=== PATIENT | male | born 1950 | race Caucasian/White ===

== ENCOUNTER 2016-07-04 22:12 | Emergency (ER) | payer OTHER ==
[2016-07-04] MEDS ORDERED: chlorproMAZINE 25 MG TABLET PO STA (23:08)
[2016-07-05] MEDS ORDERED: CYCLOBENZAPRINE 10 MG TABLET PO STA (00:15)
[2016-07-05] MEDS ORDERED: CYCLOBENZAPRINE 10 MG TABLET PO ONE (00:27)
== END 2016-07-05 00:33 | disposition home or self-care (01) ==
DX: R06.6 Hiccough (principal); I10 Essential (primary) hypertension; J44.9 Chronic obstructive pulmonary disease, unspecified; Z79.82 Long term (current) use of aspirin; F17.200 Nicotine dependence, unspecified, uncomplicated
CPT/HCPCS: 99283; A9270

== ENCOUNTER 2016-09-16 11:45 | Emergency (ER) | payer OTHER ==
[2016-09-16] MEDS ORDERED: SODIUM CHLORIDE 0.9% 1,000 ML IV ONE (12:19)
[2016-09-16] MEDS ORDERED: MULTIVITAMIN TABLET PO STA (12:19)
[2016-09-16] MEDS ORDERED: LORazepam 2 MG/ML SYRINGE IVP STA (12:19)
[2016-09-16] MEDS ORDERED: THIAMINE 100 MG TABLET PO STA (12:19)
[2016-09-16] MEDS ORDERED: LORazepam 2 MG/ML SYRINGE ONE (12:31)
[2016-09-16] MEDS ORDERED: MULTIVITAMIN TABLET PO ONE (12:31)
[2016-09-16] MEDS ORDERED: THIAMINE 100 MG/1 ML 2 ML MDV ONE (12:32)
[2016-09-16] MEDS ORDERED: THIAMINE 100 MG TABLET PO ONE (12:37)
== END 2016-09-16 14:11 | disposition home or self-care (01) ==
DX: F10.239 Alcohol dependence with withdrawal, unspecified (principal); I10 Essential (primary) hypertension; J44.9 Chronic obstructive pulmonary disease, unspecified; F17.200 Nicotine dependence, unspecified, uncomplicated
CPT/HCPCS: 36415; 80053; 80320; 83690; 83735; 96374; 99283; 99284; A9270; J2060

== ENCOUNTER 2017-02-23 10:27 | Day surgery (SDC) | payer OTHER ==
[2017-02-23] MEDS ORDERED: LACTATED RINGERS 1,000 ML IV ONE ×2 (11:00→12:53)
[2017-02-23] MEDS ORDERED: MIDAZOLAM 2 MG/2 ML VIAL IVP ONE (12:10)
[2017-02-23] MEDS ORDERED: fentaNYL 100 MCG/2 ML VIAL IVP ONE (12:10)
[2017-02-23 13:00] VITALS: BP 98/86
== END 2017-02-23 10:28 | disposition home or self-care (01) ==
LOC: SDS 10:27
PROVIDERS: ATTEND Surgery
PROC: 0DBL8ZX Excision of Transverse Colon, Via Natural or Artificial Opening Endoscopic, Diagnostic (ICD-10-PCS; principal; 2017-02-23 11:45)
DX: Z12.11 Encounter for screening for malignant neoplasm of colon (principal); D12.2 Benign neoplasm of ascending colon; D12.3 Benign neoplasm of transverse colon; I10 Essential (primary) hypertension; J43.9 Emphysema, unspecified; F17.210 Nicotine dependence, cigarettes, uncomplicated
CPT/HCPCS: 45384; 88305; J7120

== ENCOUNTER 2017-08-17 10:28 | Outpatient (CLI) | payer OTHER | END 2017-08-17 10:29 | disposition home or self-care (01) | LOC: SC 10:28 | PROVIDERS: ATTEND Internal Medicine Pulmonary Disease | DX: G47.30 Sleep apnea, unspecified (principal); R06.83 Snoring | CPT/HCPCS: 99203; 99212 ==

== ENCOUNTER 2017-09-27 20:29 | Outpatient (CLI) | payer OTHER | END 2017-09-27 20:30 | disposition home or self-care (01) | LOC: SC 20:29 | PROVIDERS: ATTEND Internal Medicine Pulmonary Disease | DX: G47.33 Obstructive sleep apnea (adult) (pediatric) (principal); G47.61 Periodic limb movement disorder | CPT/HCPCS: 95810 ==

== ENCOUNTER 2017-10-19 14:52 | Outpatient (CLI) | payer MEDICARE, OTHER | END 2017-10-19 14:53 | disposition home or self-care (01) | LOC: SC 14:52 | PROVIDERS: ATTEND Internal Medicine Pulmonary Disease | DX: G47.33 Obstructive sleep apnea (adult) (pediatric) (principal) | CPT/HCPCS: 99213; G0463; 99212 ==

== ENCOUNTER 2018-02-15 10:06 | Outpatient (CLI) | payer MEDICARE, OTHER | END 2018-02-15 10:07 | disposition home or self-care (01) | LOC: SC 10:06 | PROVIDERS: ATTEND Nurse Practitioner Family | DX: G47.33 Obstructive sleep apnea (adult) (pediatric) (principal) | CPT/HCPCS: 99214; G0463; 99212 ==

== ENCOUNTER 2018-03-22 19:30 | Outpatient (CLI) | payer MEDICARE, OTHER | END 2018-03-22 23:59 | disposition home or self-care (01) | LOC: SC 19:30 | PROVIDERS: ATTEND Internal Medicine Pulmonary Disease | DX: G47.33 Obstructive sleep apnea (adult) (pediatric) (principal) | CPT/HCPCS: G0399 ×2; 95806 ==

== ENCOUNTER 2018-05-02 13:19 | Outpatient (CLI) | payer MEDICARE, OTHER | END 2018-05-02 13:20 | disposition home or self-care (01) | LOC: SC 13:19 | PROVIDERS: ATTEND Internal Medicine Pulmonary Disease | DX: G47.33 Obstructive sleep apnea (adult) (pediatric) (principal) | CPT/HCPCS: 99213; G0463; 99212 ==

== ENCOUNTER 2020-09-22 18:59 | Emergency (ER) | payer MEDICARE, OTHER ==
--- NOTE | 2020-09-22 19:38 | XRAY Report ---
PROCEDURE: Foot 3 View RT INDICATIONS: injury/pain TECHNIQUE: 3 views of the foot were acquired. COMPARISON: None. FINDINGS: Bones: No fractures or dislocations. No suspicious bony lesions. Soft tissues: No tibiotalar joint effusion. Achilles tendon appears normal. IMPRESSION: No acute finding. Reviewed by: David Rodriguez MD on 09/22/2020 7:37 PM PDT Approved by: David Rodriguez MD on 09/22/2020 7:37 PM PDT Station ID: [id number]
--- NOTE | 2020-09-22 19:48 | ED Physician Documentation ---
PD HPI LOWER EXT INJURY - Stated complaint Stated Complaint: RT FOOT INJURY - Chief complaint Chief Complaint: Ext Problem - History obtained from History obtained from: Patient - Additional information Additional information: Patient comes emergency department for chief complaint of right Foot pain after's "stepping wrong" a couple of days ago and hurting his foot. Patient states he felt a twinge in his lateral foot, and that it has been hurting since. Patient indicates the area that has been hurting is around the 5th tarsal- metatarsal joint. No other injuries. No other complaints at this time. No swelling or discoloration. Review of Systems Ten Systems: 10 systems reviewed and negative Constitutional: reports: Reviewed and negative Eyes: reports: Reviewed and negative Ears: reports: Reviewed and negative Nose: reports: Reviewed and negative Throat: reports: Reviewed and negative Cardiac: reports: Reviewed and negative Respiratory: reports: Reviewed and negative GI: reports: Reviewed and negative : reports: Reviewed and negative Skin: reports: Reviewed and negative Musculoskeletal: reports: Extremity pain, Pain with weight bearing Neurologic: reports: Reviewed and negative Psychiatric: reports: Reviewed and negative Endocrine: reports: Reviewed and negative Immunocompromised: reports: Reviewed and negative PD PAST MEDICAL HISTORY - Past Medical History Past Medical History: Yes Cardiovascular: None, Hypertension Respiratory: COPD, Emphysema Endocrine/Autoimmune: None GI: None : Frequency HEENT: None Psych: None Musculoskeletal: Osteoarthritis Derm: None - Past Surgical History Past Surgical History: No General: Other Ortho: Shoulder arthroplasty, Arthroscopic surgery - Present Medications Home Medications: Ambulatory Orders Medication Instructions Recorded Confirmed lisinopriL [Lisinopril] 25 mg ORAL DAILY 05/27/15 09/22/20 - Allergies Allergies/Adverse Reactions: Allergies Allergy/AdvReac Type Severity Reaction Status Date / Time No Known Drug Allergies Allergy Verified 09/22/20 19:03 - Social History Does the pt smoke?: Yes Smoking Status: Current every day smoker Does the pt drink ETOH?: Yes ETOH Use: Beer Does the pt have substance abuse?: Yes Substance Use and Type: Marijuana - Immunizations Immunizations are current?: Yes Immunizations: TDAP >10years/unknown - POLST Patient has POLST: No PD ED PE NORMAL - Vitals Vital signs reviewed: Yes - General General: Alert and oriented X 3, No acute distress - HEENT HEENT: Atraumatic, PERRL, EOMI, Moist mucous membranes - Neck Neck: Supple, no meningeal sign - Cardiac Cardiac: Strong equal pulses - Respiratory Respiratory: No respiratory distress - Derm Derm: Normal color, Warm and dry, No rash - Extremities Extremities: No deformity, No edema, No calf tenderness / cord, Other (Tenderness palpation without deformity or swelling over fifth tarsometatarsal joint on right. No gross deformity.) - Neuro Neuro: Alert and oriented X 3, No motor deficit, No sensory deficit - Psych Psych: Normal mood, Normal affect Results - Vitals Vitals: Vital Signs - 24 hr 09/22/20 09/22/20 19:03 19:48 Temperature 36.6 C Heart Rate 93 88 Respiratory 18 18 Rate Blood Pressure 150/90 H 162/99 H O2 Saturation 96 95 Oxygen O2 Source Room air - Rads (name of study) R foot XR Radiology: Final report received, EMP read indepedently, See rad report (neg) PD MEDICAL DECISION MAKING - ED course Complexity details: reviewed results, re-evaluated patient, considered differential, d/w patient ED course: Evaluated with x-ray of the right foot, which was found to be negative. We have discussed whether or not the patient would like crutches or any other assistive device, and the patient states he does not feel this is necessary. He mainly came in because he was concerned there was a worse injury of his foot. We have discussed the usual indications for return. Departure - Departure Disposition: 01 Home, Self Care Clinical Impression: Foot contusion Qualifiers: Encounter type: initial encounter Laterality: right Qualified Code(s): S90.31XA - Contusion of right foot, initial encounter Condition: Stable Instructions: ED Contusion Foot Comments: Your x-ray is negative for any broken bones. You may take ibuprofen as needed and bear weight as tolerated. Discharge Date/Time: 09/22/20 19:52
[2020-09-22 19:49] VITALS: BP 162/99
== END 2020-09-22 19:52 | disposition home or self-care (01) ==
LOC: ED 18:59
DX: S90.31XA Contusion of right foot, initial encounter (principal); W22.8XXA Striking against or struck by other objects, initial encounter; I10 Essential (primary) hypertension; F17.200 Nicotine dependence, unspecified, uncomplicated
CPT/HCPCS: 99282; 99283

== ENCOUNTER 2021-04-04 20:08 | Emergency (ER) | payer MEDICARE, OTHER ==
--- NOTE | 2021-04-04 21:35 | XRAY Report ---
PROCEDURE: Ribs w/PA Chest RT INDICATIONS: fall, R rib pain TECHNIQUE: 2 views of the right ribs were acquired, along with a single view chest. COMPARISON: None FINDINGS: Surgical changes and devices: None. Bones and chest wall: Mildly displaced right lateral ninth rib fracture and 10th anterolateral rib fr acture.. No suspicious bony lesions. Overlying soft tissues appear unremarkable. Lungs and pleura: No pleural effusions or pneumothorax. Lungs appear clear. Mediastinum: Mediastinal contours appear normal. Heart size is normal. IMPRESSION: Mildly displaced right ninth and 10th rib fractures. No underlying pulmonary trauma. Reviewed by: Suzy Tan MD on 04/04/2021 9:33 PM PST Approved by: Suzy Tan MD on 04/04/2021 9:33 PM PST Station ID: [id number]
[2021-04-04] MEDS ORDERED: oxyCODONE/ACET 5/325 Prepack 4 PO STA (22:15)
[2021-04-04] MEDS ORDERED: KETOROLAC 30 MG/ML VIAL IM STA (22:25)
[2021-04-04 22:57] VITALS: BP 149/76
--- NOTE | 2021-04-05 05:44 | ED Physician Documentation ---
History of Present Illness - Stated complaint Stated Complaint: GLF - Chief complaint Chief Complaint: Trauma Ch/Bk - History obtained from History obtained from: Patient - Additonal information Additional information: 70-year-old man presents with right sided rib pain after hitting his back on a shop vac. Patient had sudden onset severe sharp pain, worse with deep breathing and with cough, without any associated features. no prior injury. Review of Systems Musculoskeletal: reports: Other (pain to R ribcage) PD PAST MEDICAL HISTORY - Past Medical History Cardiovascular: None, Hypertension Respiratory: COPD, Emphysema Endocrine/Autoimmune: None GI: None : Frequency HEENT: None Psych: None Musculoskeletal: Osteoarthritis Derm: None - Past Surgical History Past Surgical History: No General: Other Ortho: Shoulder arthroplasty, Arthroscopic surgery - Present Medications Home Medications: Ambulatory Orders Medication Instructions Recorded Confirmed lisinopriL [Lisinopril] 25 mg ORAL DAILY 05/27/15 09/22/20 Ibuprofen [Motrin] 600 mg PO Q6H PRN #30 tab 04/04/21 - Allergies Allergies/Adverse Reactions: Allergies Allergy/AdvReac Type Severity Reaction Status Date / Time No Known Drug Allergies Allergy Verified 04/04/21 20:15 - Social History Does the pt smoke?: Yes Smoking Status: Current every day smoker Does the pt drink ETOH?: Yes Does the pt have substance abuse?: Yes - Immunizations Immunizations are current?: Yes Immunizations: TDAP >10years/unknown - POLST Patient has POLST: No PD ED PE NORMAL - Vitals Vital signs reviewed: Yes - General General: Alert and oriented X 3, No acute distress, Well developed/nourished - HEENT HEENT: Atraumatic, PERRL, EOMI - Neck Neck: Supple, no meningeal sign - Cardiac Cardiac: RRR - Respiratory Respiratory: No respiratory distress, Clear bilaterally, Other (R anterolateral ribcage ttp) - Derm Derm: Normal color, Warm and dry - Neuro Neuro: Alert and oriented X 3 Results - Vitals Vitals: Vital Signs - 24 hr 04/04/21 04/04/21 20:13 22:55 Temperature 36.6 C 36.7 C Heart Rate 85 82 Respiratory 20 24 Rate Blood Pressure 151/121 H 149/76 H O2 Saturation 95 95 Oxygen O2 Source Room air PD MEDICAL DECISION MAKING - ED course ED course: 70-year-old man presents with right anterior lateral rib fractures. Patient declined opiate pain medications because he states that he drinks beer every day. Anti-inflammatory prescribed after confirming he has no history of kidney issues or bleeding. Respiratory therapy educated him on use of incentive spirometer. Return precautions provided. Patient will follow up with primary doctor. Departure - Departure Disposition: 01 Home, Self Care Clinical Impression: Rib fractures Condition: Good Instructions: ED Fx Rib Prescriptions: Ibuprofen [Motrin] 600 mg PO Q6H PRN #30 tab PRN Reason: Pain Comments: You are seen in the emergency department for right ninth and 10th rib fractures. Please take pain medicine as prescribed and return to the emergency department if you have any new or worsening symptoms or other concerns. Use your incentive spirometer as discussed with our respiratory therapist. [place] Discharge Date/Time: 04/04/21 22:57
== END 2021-04-04 22:57 | disposition home or self-care (01) ==
LOC: ED 20:08
DX: S22.41XA Multiple fractures of ribs, right side, initial encounter for closed fracture (principal); W01.198A Fall on same level from slipping, tripping and stumbling with subsequent striking against other object, initial encounter; I10 Essential (primary) hypertension; F17.200 Nicotine dependence, unspecified, uncomplicated
CPT/HCPCS: 96372; 99281; 99283

== ENCOUNTER 2021-05-25 17:28 | Inpatient (IN) | payer MEDICARE, OTHER ==
[2021-05-25] MEDS ORDERED: SODIUM CHLORIDE 0.9% 1,000 ML IV STA (17:38)
--- NOTE | 2021-05-25 17:40 | ED Physician Documentation ---
History of Present Illness - Stated complaint Stated Complaint: SHAKY,HALLUCINATIONS,FALL - Chief complaint Chief Complaint: Neuro - History obtained from History obtained from: Patient - History of Present Illness Timing: How many days ago (3) Pain level max: 0 Pain level now: 0 - Additonal information Additional information: 70-year-old male states that he has an alcoholic. He smokes cigarettes and uses marijuana daily. Denies any other drug use. He states that he fell 2 days ago striking his head. His family was concerned about him and brought him in today to "get his vitals checked". No neck pain. No nausea or vomiting. Nothing makes it better or worse. Patient is asymptomatic. Review of Systems Ten Systems: 10 systems reviewed and negative Constitutional: denies: Fever, Chills Ears: denies: Ear pain Nose: denies: Rhinorrhea / runny nose, Congestion Throat: denies: Sore throat Cardiac: denies: Chest pain / pressure, Palpitations Respiratory: denies: Dyspnea, Cough, Wheezing GI: denies: Abdominal Pain, Nausea, Vomiting, Diarrhea : denies: Dysuria Skin: denies: Rash Musculoskeletal: denies: Neck pain, Back pain Neurologic: reports: Head injury. denies: Generalized weakness, Focal weakness, Numbness, Confused, Headache, LOC PD PAST MEDICAL HISTORY - Past Medical History Cardiovascular: None, Hypertension Respiratory: COPD, Emphysema Endocrine/Autoimmune: None GI: None : Frequency HEENT: None Psych: None Musculoskeletal: Osteoarthritis Derm: None - Past Surgical History Past Surgical History: No General: Other Ortho: Shoulder arthroplasty, Arthroscopic surgery - Present Medications Home Medications: Ambulatory Orders Medication Instructions Recorded Confirmed lisinopriL [Lisinopril] 25 mg ORAL DAILY 05/27/15 09/22/20 Ibuprofen [Motrin] 600 mg PO Q6H PRN #30 tab 04/04/21 - Allergies Allergies/Adverse Reactions: Allergies Allergy/AdvReac Type Severity Reaction Status Date / Time No Known Drug Allergies Allergy Verified 05/25/21 17:35 - Social History Does the pt smoke?: Yes Smoking Status: Current every day smoker Does the pt drink ETOH?: Yes Does the pt have substance abuse?: Yes - Immunizations Immunizations are current?: Yes Immunizations: TDAP >10years/unknown - POLST Patient has POLST: No PD ED PE NORMAL - Vitals Vital signs reviewed: Yes - General General: Alert and oriented X 3, No acute distress, Other - HEENT HEENT: Moist mucous membranes, Other (small abrasion to the R foreahead. no hematomas or palpable skull fracture. ) - Neck Neck: Supple, no meningeal sign, No bony TTP, C-Spine cleared by NEXUS criteria - Cardiac Cardiac: RRR, Strong equal pulses - Respiratory Respiratory: No respiratory distress, Clear bilaterally - Abdomen Abdomen: Soft, Non tender, Non distended - Derm Derm: Warm and dry - Extremities Extremities: No edema, No calf tenderness / cord - Neuro Neuro: Alert and oriented X 3, data base administrator 2-12 intact, No motor deficit, No sensory deficit, Normal speech Eye Opening: Spontaneous Motor: Obeys Commands Verbal: Oriented GCS Score: 15 - Psych Psych: Normal mood, Normal affect Results - Vitals Vitals: Vital Signs - 24 hr 05/25/21 05/25/21 05/25/21 17:35 19:14 20:30 Temperature 36.4 C L 36.1 C L Heart Rate 78 65 67 Respiratory 19 12 12 Rate Blood Pressure 159/86 H 153/77 H 147/77 H O2 Saturation 97 96 98 Oxygen O2 Source Room air - Labs Labs: Laboratory Tests 05/25/21 05/25/21 05/25/21 17:44 17:44 17:44 WBC 8.3 RBC 4.10 L Hgb 13.7 L Hct 37.7 L MCV 92.0 MCH 33.4 H MCHC 36.3 H RDW 11.5 L Plt Count 211 MPV 8.4 Neut # (Auto) 6.4 Lymph # (Auto) 0.8 L [place] # (Auto) 0.9 Eos # (Auto) 0.1 Baso # (Auto) 0.0 Absolute Nucleated RBC 0.00 Nucleated RBC % 0.0 Sodium 119 L* Potassium 3.4 L Chloride 81 L Carbon Dioxide 28 Anion Gap 10.0 BUN 10 Creatinine 0.5 L Estimated GFR (MDRD) 165 Glucose 89 Calcium 9.2 Total Bilirubin 0.8 AST 39 ALT 37 Alkaline Phosphatase 75 Total Protein 7.1 Albumin 4.3 Globulin 2.8 Albumin/Globulin Ratio 1.5 Lipase 42 TSH 3.83 Nasal Adenovirus (PCR) Nasal B. parapertussis DNA (PCR) Nasal Coronavir 229E PCR Nasal Coronavir HKU1 PCR Nasal Coronavir NL63 PCR Nasal Coronavir OC43 PCR Nasal Enterovir/Rhinovir PCR Nasal Influenza B PCR Nasal Influenza A PCR Nasal Parainfluen 1 PCR Nasal Parainfluen 2 PCR Nasal Parainfluen 3 PCR Nasal Parainfluen 4 PCR Nasal RSV (PCR) Nasal B.pertussis DNA PCR Nasal C.pneumoniae (PCR) Rajiv Human Metapneumo PCR Nasal M.pneumoniae (PCR) Nasal SARS-CoV-2 (PCR) Salicylates < 6.0 Acetaminophen < 10 L Ethyl Alcohol < 5.0 05/25/21 18:39 WBC RBC Hgb Hct MCV MCH MCHC RDW Plt Count MPV Neut # (Auto) Lymph # (Auto) [place] # (Auto) Eos # (Auto) Baso # (Auto) Absolute Nucleated RBC Nucleated RBC % Sodium Potassium Chloride Carbon Dioxide Anion Gap BUN Creatinine Estimated GFR (MDRD) Glucose Calcium Total Bilirubin AST ALT Alkaline Phosphatase Total Protein Albumin Globulin Albumin/Globulin Ratio Lipase TSH Nasal Adenovirus (PCR) NOT DETECTED Nasal B. parapertussis DNA (PCR) NOT DETECTED Nasal Coronavir 229E PCR NOT DETECTED Nasal Coronavir HKU1 PCR NOT DETECTED Nasal Coronavir NL63 PCR NOT DETECTED Nasal Coronavir OC43 PCR NOT DETECTED Nasal Enterovir/Rhinovir PCR NOT DETECTED Nasal Influenza B PCR NOT DETECTED Nasal Influenza A PCR NOT DETECTED Nasal Parainfluen 1 PCR NOT DETECTED Nasal Parainfluen 2 PCR NOT DETECTED Nasal Parainfluen 3 PCR NOT DETECTED Nasal Parainfluen 4 PCR NOT DETECTED Nasal RSV (PCR) NOT DETECTED Nasal B.pertussis DNA PCR NOT DETECTED Nasal C.pneumoniae (PCR) NOT DETECTED Rajiv Human Metapneumo PCR NOT DETECTED Nasal M.pneumoniae (PCR) NOT DETECTED Nasal SARS-CoV-2 (PCR) NOT DETECTED Salicylates Acetaminophen Ethyl Alcohol - Rads (name of study) Head CT Radiology: Final report received, EMP read contemporaneously, See rad report (No acute intracranial abnormality) PD MEDICAL DECISION MAKING - ED course Complexity details: reviewed old records, reviewed results, re-evaluated patient, considered differential, d/w patient, d/w bridal stylist sales consultant ED course: 70-year-old male presents to the emergency department after a fall a few days ago in which he struck his head. No acute findings on head CT. On laboratory testing he is found to have hyponatremia. This is a recurrent issue for the patient. He is an alcoholic as well. Does not appear to be in acute withdrawal however. Given IV fluids and a banana bag. We will admit for correction of his hyponatremia. He is neurologically intact. No seizures. Discussed the case with Dr. Bergeron, hospitalist accepts This document was made in part using voice recognition software. While efforts are made to proofread this document, sound alike and grammatical errors may occur. Departure - Departure Disposition: 68 [facility] DC/Xfer Clinical Impression: Hyponatremia, Alcoholism, Acute hyponatremia
[2021-05-25 17:55] LABS: BASOPHILS % (AUTO) 0.5 %; EOSINOPHILS # (AUTO) 0.1 10^3/uL (0.0-0.7); EOSINOPHILS % (AUTO) 1.1 %; HCT - HEMATOCRIT 37.7 % (42.0-52.0); HGB - HEMOGLOBIN 13.7 g/dL (14.0-18.0); LYMPHOCYTES # (AUTO) 0.8 10^3/uL (1.5-3.5); LYMPHOCYTES % (AUTO) 9.7 %; MEAN CORPUSCULAR HEMOGLOBIN 33.4 pg (27.0-31.0); MEAN CORPUSCULAR HGB CONC 36.3 g/dL (32.0-36.0); MEAN PLATELET VOLUME 8.4 fL (7.4-11.4); MONOCYTES # (AUTO) 0.9 10^3/uL (0.0-1.0); MONOCYTES % (AUTO) 11.2 %; NEUTROPHILS # (AUTO) 6.4 10^3/uL (1.5-6.6); NEUTROPHILS % (AUTO) 77.1 %; PLT - PLATELET COUNT 211 10^3/uL (130-450); RED CELL DISTRIBUTION WIDTH 11.5 % (12.0-15.0); WHITE BLOOD COUNT 8.3 x10^3/uL (4.8-10.8)
--- NOTE | 2021-05-25 18:10 | CT Report ---
PROCEDURE: HEAD WO INDICATIONS: fall, head injury TECHNIQUE: Noncontrast 4.5 mm thick angled axial sections acquired from the foramen magnum to the vertex. For r adiation dose reduction, the following was used: automated exposure control, adjustment of mA and/or kV according to patient size. COMPARISON: None. FINDINGS: Image quality: Excellent. CSF spaces: Basal cisterns are patent. No extra-axial fluid collections. Ventricles are normal in size and shape. Brain: No midline shift. No intracranial masses or hemorrhage. Sexton-white matter interface is norm al. Age-related volume loss and small vessel ischemic change. Skull and face: Calvarium and visualized facial bones are intact, without suspicious lesions. Sinuses: Visualized sinuses and mastoids are clear. IMPRESSION: 1. No evidence of acute stroke, hemorrhage, or mass. 2. No evidence of significant sequelae of acute intracranial trauma. Reviewed by: Davonte Benson MD on 05/25/2021 6:09 PM PST Approved by: Davonte Benson MD on 05/25/2021 6:09 PM PST Station ID: [id number]
[2021-05-25 18:24] LABS: ACETAMINOPHEN < 10 ug/mL (10-30); ALBUMIN 4.3 g/dL (3.2-5.5); ALBUMIN/GLOBULIN RATIO 1.5 (1.0-2.2); ALKALINE PHOSPHATASE 75 IU/L (42-121); ALT ALANINE AMINOTRANSFERASE 37 IU/L (10-60); AST ASPARTATE AMINOTRANSFERASE 39 IU/L (10-42); BILIRUBIN,TOTAL 0.8 mg/dL (0.2-1.0); BUN - BLOOD UREA NITROGEN 10 mg/dL (6-20); CALCIUM 9.2 mg/dL (8.5-10.3); CARBON DIOXIDE - CO2 28 mmol/L (21-32); CHLORIDE 81 mmol/L (101-111); CREATININE 0.5 mg/dL (0.6-1.2); ETOH - ETHANOL < 5.0 mg/dL; GFR - MDRD 165 (>89); GLUCOSE 89 mg/dL (70-100); LIPASE 42 U/L (22-51); POTASSIUM 3.4 mmol/L (3.5-5.0); SALICYLATE < 6.0 mg/dL; TOTAL PROTEIN 7.1 g/dL (6.7-8.2)
[2021-05-25 18:26] LABS: SODIUM 119 mmol/L (135-145)
[2021-05-25] MEDS ORDERED: SODIUM CHLORIDE 0.9% 500 ML IV STA (18:27)
[2021-05-25] MEDS ORDERED: THIAMINE INJ 100 MG, MAGNESIUM SULFATE 2 GM, MULTIVITAMIN 10 ML, FOLIC ACID INJ 1 MG in... IV ONE ×5 (18:37)
[2021-05-25] MEDS ORDERED: THIAMINE 100 MG/1 ML 2 ML MDV ONE (19:04)
[2021-05-25] MEDS ORDERED: MAGNESIUM SULFATE 1 GM/2 ML VIAL ONE (19:04)
[2021-05-25] MEDS ORDERED: ONDANSETRON 4 MG/2 ML VIAL IVP PRN (19:15)
[2021-05-25] MEDS ORDERED: SODIUM CHLORIDE FLUSH 0.9% 10 ML SYRINGE IVP PRN (19:15)
[2021-05-25] MEDS ORDERED: ACETAMINOPHEN 325 MG TABLET PO PRN (19:15)
[2021-05-25] MEDS ORDERED: LORazepam 2 MG/ML VIAL IVP PRN (19:19)
--- NOTE | 2021-05-25 19:23 | HISTORY & PHYSICAL EXAMINATION ---
Chief Complaint - Chief Complaint Chief Complaint: s/p fall History of Present Illness - Admitted From Admitted From:: [facility] ED - History Obtained From Records Reviewed: yes History obtained from: ED physician and records Exam Limitations: somnolent - History of Present Illness HPI Comment/Other: Patient is a 70-year-old male with history of alcohol abuse who was brought to the ED by a family member for checkup after he fell and hit his head at home 2 days ago. This history is very limited because the patient does not provide any history of answer questions asked. He will arouse to painful stimuli like a pernell rnal rub and can follow simple commands with insistent prompting. At the time of the ED physicians exam the patient denied neck pain, nausea, vomiting. CT of the head without contrast was unremarkable. Further work-up included a BMP which showed a sodium of 119. As a result he was presented for admission for further management. History - Past Medical History Cardiovascular: reports: None, Hypertension Respiratory: reports: COPD, Emphysema Endocrine/Autoimmune: reports: None GI: reports: None : reports: Frequency HEENT: reports: None Psych: reports: None Musculoskeletal: reports: Osteoarthritis Derm: reports: None MRSA Hx?: No - Past Surgical History General: reports: Other Ortho: reports: Shoulder arthroplasty, Arthroscopic surgery - Family & Social History Family History Comment/Other: The patient's mother had emphysema. Father was an alcoholic. Social History Notes: Patient lives with his . 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 He moved to [facility] with his family in 1988. Prior to that lived in [place]. He has 2 daughters and 1 son. He smokes 1 pack of cigarettes per day. He has been smoking for about 46 years. He drinks 1/5 every 4 days and a sixpack a day. He occasionally uses marijuana. - POLST Patient has POLST: No POLST Status: Full Code Meds/Allgy - Home Medications Home Medications: Ambulatory Orders Medication Instructions Recorded Confirmed lisinopriL [Lisinopril] 25 mg ORAL DAILY 05/27/15 09/22/20 Ibuprofen [Motrin] 600 mg PO Q6H PRN #30 tab 04/04/21 - Allergies Allergies/Adverse Reactions: Allergies Allergy/AdvReac Type Severity Reaction Status Date / Time No Known Drug Allergies Allergy Verified 05/25/21 17:35 Review of Systems - Other Findings Other Findings: 12 point review of system is limited because the patient needs currently unable to provide history. Prior Level of Functionality: Patient is normally independent of activities of daily living. Exam - Vital Signs Vital Signs: Vital Signs x48h Temp Pulse Resp BP Pulse Ox 05/25/21 19:14 36.1 C L 65 12 153/77 H 96 05/25/21 17:35 36.4 C L 78 19 159/86 H 97 - Physical Exam General Appearance: positive: No acute distress, Alert, Other (Awake, alert but noncommunicative. Very disheveled appearing.) Eyes Bilateral: positive: PERRL, EOMI ENT: positive: No signs of dehydration Neck: positive: No JVD, Trachea midline Cardiovascular: positive: Regular rate & rhythm, No murmur Abdomen: positive: Non-tender, No organomegaly, Nml bowel sounds, No distention. negative: Guarding, Rebound Back: positive: Nml inspection Skin: positive: Other (Bruising on upper abdomen and lower chest) Extremities: positive: Full ROM, Other (Hyperemic, edematous, hypersensitive to touch) Neurologic/Psychiatric: positive: Other (Mainly oriented to self. Flat affect) Conclusion/Plan - Problem List (1) Hyponatremia Conclusion/Plan: Suspect secondary to alcohol abuse. Patient was started on normal saline in the ED. We will continue normal saline at 125 mL/h and check BMP. (2) Alcoholism Conclusion/Plan: CIWA protocol initiated. - Lab Results Fish Bones: 05/25/21 17:44 05/25/21 17:44 Core Measures - Anticipated LOS I expect patient to be DC'd or transferred within 96 hours.: Yes - DVT/VTE - Prophylaxis VTE/DVT Device ordered at admit?: Yes VTE/DVT Prophylaxis med ordered at admit?: Yes
[2021-05-25 19:38] LABS: B. PARAPERTUSSIS- RESP PCR PAN NOT DETECTED; B. PERTUSSIS- RESP PCR PANEL NOT DETECTED; C. PNEUMONIAE- RESP PCR PANEL NOT DETECTED; CORONAVIRUS 229E-RESP PCR NOT DETECTED; CORONAVIRUS HKU1-RESP PCR NOT DETECTED; CORONAVIRUS NL63-RESP PCR NOT DETECTED; CORONAVIRUS OC43-RESP PCR NOT DETECTED; HUMAN METAPNEUMOVIRUS NOT DETECTED; INFLUENZA A- RESP PCR PANEL NOT DETECTED; INFLUENZA B - RESP PCR PANEL NOT DETECTED; M. PNEUMONIAE- RESP PCR PANEL NOT DETECTED; PARAINFLUENZA VIRUS 1 NOT DETECTED; PARAINFLUENZA VIRUS 2 NOT DETECTED; PARAINFLUENZA VIRUS 3 NOT DETECTED; PARAINFLUENZA VIRUS 4 NOT DETECTED; RHINOVIRUS/ENTEROVIRUS NOT DETECTED; RSV- RESP PCR PANEL NOT DETECTED; SARS-CoV-2 -RESP PCR PANEL NOT DETECTED
[2021-05-25] MEDS: chlordiazePOXIDE 25 MG CAPSULE PO SCH (20:59)
[2021-05-25] MEDS: SODIUM CHLORIDE 0.9% 1,000 ML IV SCH ×2 (21:00→21:32)
[2021-05-25 23:10] LABS: CREATININE 0.4 mg/dL (0.6-1.2); POTASSIUM 3.2 mmol/L (3.5-5.0)
[2021-05-26 00:05] LABS: BILIRUBIN,URINE NEGATIVE (NEGATIVE); GLUCOSE, URINE (UA) NEGATIVE (NEGATIVE); KETONES,URINE (UA) TRACE mg/dL (NEGATIVE); LEUKOCYTE ESTERASE, URINE NEGATIVE (NEGATIVE); MUDS CUTOFF CONCENTRATIONS CUTOFF CONC BELOW:; NITRITE,URINE NEGATIVE (NEGATIVE); OCCULT BLOOD,URINE TRACE-LYSE (NEGATIVE); PROTEIN,URINE NEGATIVE (NEGATIVE); UROBILINOGEN,URINE 0.2 (NORMAL) E.U./dL (NORMAL)
[2021-05-26 00:07] LABS: CLARITY,URINE CLEAR (CLEAR)
[2021-05-26 00:16] LABS: AMPHETAMINE SCREEN,URINE NEGATIVE (NEGATIVE); BARBITURATE SCREEN,UR NEGATIVE (NEGATIVE); BENZODIAZEPINES SCREEN, URINE NEGATIVE (NEGATIVE); COCAINE SCREEN URINE NEGATIVE (NEGATIVE); METHADONE SCREEN, URINE NEGATIVE (NEGATIVE); METHAMPHETAMINES SCREEN, URINE NEGATIVE (NEGATIVE); OPIATE SCREEN, URINE NEGATIVE (NEGATIVE); OXYCODONE SCREEN, URINE NEGATIVE (NEGATIVE); PROPOXYPHENE SCREEN, URINE NEGATIVE (NEGATIVE); THC CANNABINOID SCREEN, URINE NEGATIVE (NEGATIVE); TRICYCLIC ANTIDEPRESSANT,URINE NEGATIVE (NEGATIVE)
[2021-05-26] MEDS: SODIUM CHLORIDE FLUSH 0.9% 10 ML SYRINGE IVP SCH ×3 (01:00→16:27)
[2021-05-26] MEDS: SODIUM CHLORIDE 0.9% 1,000 ML IV SCH ×3 (04:00→20:10)
[2021-05-26 06:26] LABS: BASOPHILS % (AUTO) 0.3 %; EOSINOPHILS # (AUTO) 0.1 10^3/uL (0.0-0.7); EOSINOPHILS % (AUTO) 1.4 %; HCT - HEMATOCRIT 34.9 % (42.0-52.0); HGB - HEMOGLOBIN 12.7 g/dL (14.0-18.0); LYMPHOCYTES # (AUTO) 0.5 10^3/uL (1.5-3.5); LYMPHOCYTES % (AUTO) 7.8 %; MEAN CORPUSCULAR HEMOGLOBIN 33.8 pg (27.0-31.0); MEAN CORPUSCULAR HGB CONC 36.4 g/dL (32.0-36.0); MEAN CORPUSCULAR VOLUME 92.8 fL (80.0-94.0); MEAN PLATELET VOLUME 8.7 fL (7.4-11.4); MONOCYTES # (AUTO) 0.7 10^3/uL (0.0-1.0); NEUTROPHILS # (AUTO) 5.1 10^3/uL (1.5-6.6); NEUTROPHILS % (AUTO) 78.9 %; PLT - PLATELET COUNT 198 10^3/uL (130-450); RED BLOOD COUNT 3.76 10^6/uL (4.70-6.10); RED CELL DISTRIBUTION WIDTH 11.8 % (12.0-15.0); WHITE BLOOD COUNT 6.4 x10^3/uL (4.8-10.8)
[2021-05-26 06:36] LABS: CALCIUM 8.4 mg/dL (8.5-10.3); CREATININE 0.4 mg/dL (0.6-1.2); MAGNESIUM 1.9 mg/dL (1.7-2.8); PHOSPHORUS 3.6 mg/dL (2.5-4.6); POTASSIUM 3.3 mmol/L (3.5-5.0)
[2021-05-26] MEDS: chlordiazePOXIDE 25 MG CAPSULE PO SCH ×2 (08:22→20:09)
[2021-05-26] MEDS: THIAMINE 100 MG TABLET PO SCH (08:23)
[2021-05-26] MEDS: NICOTINE 21 MG PATCH TOP SCH (12:31)
--- NOTE | 2021-05-26 12:48 | PROVIDER PROGRESS NOTE ---
Progress Note May 26, 2021 12:29 PM Overnight he has not needed CIWA protocol. No significant withdrawal symptoms. Still sleepy and lethargic. Being treated for his hyponatremia with normal saline and fluid restriction. Sodium is gone from 1 19-123 and now is 129 this morning. He is independent with his eating. Alert this morning. Medications: Tylenol, Librium 25 twice daily, Ativan as needed, nicotine patch at his request, Zofran, potassium needs to be given this morning, vitamin, thiamine 100 mg daily. He is already received magnesium sulfate and 1 ampoule of a banana bag. Temperature is 36.3. Pulse is 66. Blood pressure 153/89. Respirations 18. 91 to 95% on room air. He is 5 foot 11 inches tall and weighs 72.5 kg. He is alert but confused. Forgets that he is in the hospital, and why he is here. But he is able to use his hands to feed himself, reposition himself in the bed, and sit up. Neck is supple shoddy adenopathy Lungs have diminished breath sounds at the bases but are otherwise clear without crackles rhonchi or wheezing Regular rate and rhythm Abdomen soft, nontender, normal bowel sounds, no fluid wave No edema present. Neurologically he is confused, but easily prompted. No focal neurological deficits. No tremors. Electrolytes: Sodium 129, potassium 3.3, chloride 91, creatinine 0.4, BNP 91 CBC: White cell count 6.4, hemoglobin 12.7, MCV 92. pLT 198 Assessment/plan 1. Hyponatremia. Secondary to alcohol use and lack of water intake and probable cirrhosis. He has responded to current treatment. Plan: Patient encouraged not to drink anymore. Do adequate fluid intake. Probable discharge tomorrow morning. 2. Alcoholism. As above. Social work will see the patient for counseling and opportunities. So far no alcohol withdrawal on Librium 25 mg p.o. twice daily. We will reduce the Librium so he gets 1 dose tonight and then tomorrow morning and see how he does. Already on vitamin supplements. 3. Hypokalemia. Supplement p.o. again. Recheck tomorrow morning.
[2021-05-26] MEDS: PRENATAL VITAMIN TABLET PO SCH (13:46)
[2021-05-26] MEDS: POTASSIUM CHLORIDE 20 MEQ/15 ML UDC PO SCH (13:46)
--- NOTE | 2021-05-26 14:33 | PHARMACY PROGRESS NOTE ---
- Best Possible Medication History Admit Date and Time: 05/26/21 0600 Processed by: Pharmacy Medication History completed: Yes Patient Interview: Completed Secondary Source(s): Pharmacy records, Insurance records (PT STATES TAKING LISINOPRIL BUT HAS NOT FILLED IN OVER 2 YEARS) As the person ultimately responsible for medication therapy, providers are able to order a medication from an existing home medication list in [facility] via the "Reconcile Routine" prior to Confirmation of that medication by system support technician. Such practice is discouraged except when the physician, in their clinical judgment, deems that a medical need exists for a medication without regard to previous use.
[2021-05-27] MEDS: SODIUM CHLORIDE FLUSH 0.9% 10 ML SYRINGE IVP SCH (00:56)
[2021-05-27] MEDS: SODIUM CHLORIDE 0.9% 1,000 ML IV SCH (04:04)
[2021-05-27 05:37] LABS: BASOPHILS # (AUTO) 0.1 10^3/uL (0.0-0.1); BASOPHILS % (AUTO) 0.9 %; EOSINOPHILS # (AUTO) 0.2 10^3/uL (0.0-0.7); EOSINOPHILS % (AUTO) 3.5 %; HCT - HEMATOCRIT 33.7 % (42.0-52.0); LYMPHOCYTES # (AUTO) 0.9 10^3/uL (1.5-3.5); LYMPHOCYTES % (AUTO) 15.8 %; MEAN CORPUSCULAR HEMOGLOBIN 33.5 pg (27.0-31.0); MEAN CORPUSCULAR HGB CONC 35.6 g/dL (32.0-36.0); MEAN CORPUSCULAR VOLUME 94.1 fL (80.0-94.0); MEAN PLATELET VOLUME 8.8 fL (7.4-11.4); MONOCYTES # (AUTO) 0.7 10^3/uL (0.0-1.0); MONOCYTES % (AUTO) 13.6 %; NEUTROPHILS # (AUTO) 3.6 10^3/uL (1.5-6.6); PLT - PLATELET COUNT 202 10^3/uL (130-450); RED BLOOD COUNT 3.58 10^6/uL (4.70-6.10); RED CELL DISTRIBUTION WIDTH 11.7 % (12.0-15.0); WHITE BLOOD COUNT 5.4 x10^3/uL (4.8-10.8)
[2021-05-27 05:45] LABS: CALCIUM 8.5 mg/dL (8.5-10.3); CREATININE 0.6 mg/dL (0.6-1.2); POTASSIUM 3.5 mmol/L (3.5-5.0)
[2021-05-27] MEDS: THIAMINE 100 MG TABLET PO SCH (08:24)
[2021-05-27] MEDS: PRENATAL VITAMIN TABLET PO SCH (08:24)
[2021-05-27] MEDS: chlordiazePOXIDE 25 MG CAPSULE PO SCH (08:24)
[2021-05-27] MEDS: POTASSIUM CHLORIDE 20 MEQ/15 ML UDC PO SCH (08:25)
[2021-05-27] MEDS: NICOTINE 21 MG PATCH TOP SCH (08:27)
[2021-05-27] MEDS ORDERED: SODIUM CHLORIDE 0.9% 1,000 ML IV SCH (08:50)
[2021-05-27] MEDS ORDERED: amLODIPine 5 MG TABLET PO SCH (09:00)
--- NOTE | 2021-05-27 11:21 | Discharge Plan ---
Discharge Plan Problem Reviewed?: Yes Disposition: Home, Self Care Condition: Stable Prescriptions: amLODIPine [Norvasc] 5 mg PO DAILY #30 tablet Pnv No.95/Ferrous Fum/Folic AC [ Tablet] 1 each PO DAILY #30 tablet Thiamine [Vitamin B-1] 100 mg PO DAILY #30 tablet Diet: Regular Activity Restrictions: Activity as Tolerated Shower Restrictions: No (fall precaution) Instruction Topics: Alcoholism, Alcoholism Get Help, Addiction Get Help, Addiction Recovery, Addiction Recovery Counseling, Addiction Recovery [place] W Relapse, Amlodipine Health Concerns: alcohol abuse Plan of Treatment: Strongly advise you quit alcohol, consult with social insurance analyst try help you quit alcohol. You have slight elevated blood pressure, new medication Amlodipine is prescribed for you. and Vitamin B1 are prescribed to help you deal with your alcohol issue. please Keep hydration at home. Your serum sodium level is close to normal arrange. Care Goals: stabilization and improvement/resolve of your medical issues. Assessment: Discussed the care plan in detail with you, answered your questions, you understood Additional Instructions or Follow Up instructions: You may follow-up with your PCP in 1 to 2 weeks. Should your symptoms return or worsen, you may present to the ER or call 911 for help No Smoking: If you smoke, Please STOP! Call for help.
--- NOTE | 2021-05-27 11:32 | DISCHARGE SUMMARY ---
Discharge Summary Admit Date: 05/25/21 Discharge Date: 05/27/21 Discharging Provider: Sharath Franklin Code Status: Attempt Resuscitation Condition at Discharge: Stable Discharge Disposition: 01 Home, Self Care Discharge Facility Name: home - DIAGNOSES Discharge Diagnoses with Status of Each Condition: (1) Hyponatremia improved significantly. Na is 131 on today. pt has hx of hyponatremia. pt has intact neurological examination on today. CT of head reveals without acute process. pt is alert and oriented plus 4 on today. it was likely caused by alcohol abuse and dehydration. pt report both his and he have alcohol problem. Received his 's call, strongly advise both quit alcohol. consulted with forensic social worker to help them qu it alcohol. (2) Alcoholism pt is prescribed and Vitamin B1. pt report both his and he have alcohol problem. Received his 's call, discussed pt's care plan and updated pt's progress, and strongly advise both quit alcohol. consulted with forensic social worker to help them quit alcohol. (3)hypokalemia resolved. (4)fall pt is alert and oriented plus 4 on today. pt did not show fall risk after assessed pt at this time. pt's fall was likely caused by his alcohol abuse at home. strongly advise pt quit alcohol. pt agreed to quit alcohol, and consulted with forensic social worker to help pt quit alcohol. (5)HTN pt is prescribed 5mg daily of Amlodipine. - HPI History of Present Illness: refer from Dr. Doshi's HPI on 05/25/21 Patient is a 70-year-old male with history of alcohol abuse who was brought to the ED by a family member for checkup after he fell and hit his head at home 2 days ago. This history is very limited because the patient does not provide any history of answer questions asked. He will arouse to painful stimuli like a sternal rub and can follow simple commands with insistent prompting. At the time of the ED physicians exam the patient denied neck pain, nausea, vomiting. CT of the head without contrast was unremarkable. Further work-up included a BMP which showed a sodium of 119. As a result he was presented for admission for further management. - ALLERGIES Allergies/Adverse Reactions: Allergies Allergy/AdvReac Type Severity Reaction Status Date / Time No Known Drug Allergies Allergy Verified 05/25/21 17:35 - MEDICATIONS Home Medications: Ambulatory Orders Medication Instructions Recorded Confirmed Albuterol Sulfate [Proair Hfa 1 - 2 puffs INH Q4H PRN 05/26/21 05/26/21 Inhaler] Fluticasone/Salmeterol [Advair 1 puffs INH BID 05/26/21 05/26/21 250-50 Diskus] Pnv No.95/Ferrous Fum/Folic AC 1 each PO DAILY #30 tablet 05/27/21 [ Tablet] Thiamine [Vitamin B-1] 100 mg PO DAILY #30 tablet 05/27/21 amLODIPine [Norvasc] 5 mg PO DAILY #30 tablet 05/27/21 - PHYSICAL EXAM AT DISCHARGE General Appearance: positive: No acute distress, Alert. negative: Lethargic Eyes Bilateral: positive: Normal inspection, No lid inflammation ENT: positive: ENT inspection nml, No signs of dehydration. negative: Purulent nasal drainage Neck: positive: Nml inspection, Trachea midline. negative: Tracheal deviation Respiratory: positive: Chest non-tender, No respiratory distress. negative: Wheezes, Rales Cardiovascular: positive: Regular rate & rhythm. negative: Tachycardia, Bradycardia, Systolic murmur Peripheral Pulses: positive: 2+ Abdomen: positive: Non-tender, Nml bowel sounds, No distention. negative: Tenderness Back: positive: Nml inspection Skin: positive: Color nml, Warm, Dry. negative: Cyanosis Extremities: positive: Non-tender, Full ROM, Nml appearance Neurologic/Psychiatric: positive: Oriented x3, Motor nml, Sensation nml. negative: Weakness, Sensory loss, Facial droop, Slurred/abnml speech, Depressed mood/affect - LABS Result Diagrams: 05/27/21 05:10 05/27/21 05:10 - FOLLOW UP Follow Up: lucila advise you quit alcohol, consult with forensic social worker try help you quit alcohol. You have slight elevated blood pressure, new medication Amlodipine is prescribed for you. and Vitamin B1 are prescribed to help you deal with your alcohol issue. please Keep hydration at home. Your serum sodium level is close to normal arrange. You may follow-up with your PCP in 1 to 2 weeks. Should your symptoms return or worsen, you may present to the ER or call 911 for help - TIME SPENT Time Spent in Discharge (Minutes): 30
[2021-05-27 11:34] VITALS: BP 142/74
[2021-05-28] MEDS ORDERED: chlordiazePOXIDE 25 MG CAPSULE PO SCH (09:00)
== END 2021-05-27 14:40 | disposition home or self-care (01) | DRG 641 ==
LOC: ED 17:28 → MS2 05-26 06:00 → UNDOADMIN 05-26 06:00 → MS2 05-26 08:36 → UNDODISIN 05-27 14:40
PROVIDERS: ADMIT Internal Medicine; ATTEND Nurse Practitioner Gerontology
DX: E87.1 Hypo-osmolality and hyponatremia (principal); F10.20 Alcohol dependence, uncomplicated; S00.81XA Abrasion of other part of head, initial encounter; E87.6 Hypokalemia; W19.XXXA Unspecified fall, initial encounter; Z20.822 Contact with and (suspected) exposure to COVID-19; I10 Essential (primary) hypertension; J43.9 Emphysema, unspecified; F17.210 Nicotine dependence, cigarettes, uncomplicated
CPT/HCPCS: 36415; 70450; 80048; 80053; 80306; 80307; 81003; 83690; 83735; 83880; 84100; 84443; 85025; 87631; 93005; 96361; 96365; 96366; 99283; 99285; A9270; G0480; J3411; 0202U; 80320; 80329; 81001; 87086

== ENCOUNTER 2021-11-25 15:07 | Emergency (ER) | payer MEDICARE, OTHER ==
[2021-11-25 15:18] VITALS: BP 178/106
--- NOTE | 2021-11-25 15:35 | ED Physician Documentation ---
History of Present Illness - Stated complaint Stated Complaint: SENT BY - Chief complaint Chief Complaint: General - Additonal information Additional information: 71-year-old male was referred to the emergency department from [facility] for evaluation of abnormal laboratory testing. He reports that he was at the clinic yesterday for a routine physical and they obtained screening lab test. He was called and told that he had a low sodium level as well as a high white blood cell count and that he needed to come to the ER. Patient reports a history of high blood pressure and COPD. He also thinks that he has cirrhosis. He admits to heavy alcohol intake typically 8-9 beers a day on average. He states over the last 2 months he has begun to have swelling of his lower extremities. No changes to his baseline dyspnea. Denies any chest pain weight loss. No melena or hematochezia. If he had not been told to come to the ER today he would not have presented. Review of Systems Constitutional: denies: Fever, Chills, Fatigue, Weight Loss Eyes: reports: Reviewed and negative Ears: reports: Reviewed and negative Nose: reports: Reviewed and negative Throat: reports: Reviewed and negative Cardiac: reports: Reviewed and negative Respiratory: reports: Dyspnea (baselien with copd), Reviewed and negative GI: denies: Abdominal Pain, Nausea, Vomiting, Hematemesis, Bloody / black stool : denies: Dysuria Skin: denies: Rash, Lesions Musculoskeletal: reports: Reviewed and negative Neurologic: reports: Generalized weakness. denies: Seizure, Confused, Altered mental status, Headache, Head injury Psychiatric: reports: Reviewed and negative PD PAST MEDICAL HISTORY - Past Medical History Cardiovascular: None, Hypertension Respiratory: COPD, Emphysema Endocrine/Autoimmune: None GI: None : Frequency HEENT: None Psych: None Musculoskeletal: Osteoarthritis Derm: None - Past Surgical History Past Surgical History: No General: Other Ortho: Shoulder arthroplasty, Arthroscopic surgery - Present Medications Home Medications: Ambulatory Orders Medication Instructions Recorded Confirmed Albuterol Sulfate [Proair Hfa 1 - 2 puffs INH Q4H PRN 05/26/21 05/26/21 Inhaler] Fluticasone/Salmeterol [Advair 1 puffs INH BID 05/26/21 05/26/21 250-50 Diskus] Pnv No.95/Ferrous Fum/Folic AC 1 each PO DAILY #30 tablet 05/27/21 [ Tablet] Thiamine [Vitamin B-1] 100 mg PO DAILY #30 tablet 05/27/21 amLODIPine [Norvasc] 5 mg PO DAILY #30 tablet 05/27/21 - Allergies Allergies/Adverse Reactions: Allergies Allergy/AdvReac Type Severity Reaction Status Date / Time No Known Drug Allergies Allergy Verified 11/25/21 15:18 - Social History Does the pt smoke?: Yes Smoking Status: Current every day smoker Does the pt drink ETOH?: Yes Does the pt have substance abuse?: Yes - Immunizations Immunizations are current?: Yes Immunizations: TDAP >10years/unknown - POLST Patient has POLST: No POLST Status: Full Code PD ED PE EXPANDED - General General: Alert - HEENT HEENT: PERRL - Neck Neck: Supple w/out meningeal sx. No: Adenopathy - Cardiac Cardiac: Regular Rate, Radial strong equal, Pedal strong equal, Cap refill < 2 sec. No: Murmur Present - Respiratory Respiratory: Wheezing (diffuse expiratory wheeze). No: Distress, Labored - Abdomen Abdomen: Normal Bowel sounds. No: Tender to palpation (No palpable ascites) - Back Back: Normal exam. No: Vertebral tenderness, Soft tissue tenderness - Neuro Neuro: Alert and Oriented X 3, CNII-XII intact, Normal finger nose - GCS Eye Opening: Spontaneous Motor: Obeys Commands Verbal: Oriented Total: 15 Results - Vitals Vitals: Vital Signs - 24 hr 11/25/21 11/25/21 15:13 15:18 Temperature 36.9 C 36.9 C Heart Rate 87 87 Respiratory 18 18 Rate Blood Pressure 178/106 H O2 Saturation 93 93 Oxygen O2 Source Room air - Labs Labs: Laboratory Tests 11/25/21 11/25/21 11/25/21 15:34 15:34 15:34 WBC 8.9 RBC 4.23 L Hgb 14.2 Hct 39.5 L MCV 93.4 MCH 33.6 H MCHC 35.9 RDW 12.0 Plt Count 202 MPV 8.5 Neut # (Auto) 7.3 H Lymph # (Auto) 0.7 L Russell # (Auto) 0.8 Eos # (Auto) 0.1 Baso # (Auto) 0.0 Absolute Nucleated RBC 0.00 Nucleated RBC % 0.0 PT 10.0 INR 0.9 Sodium 126 L Potassium 4.5 Chloride 89 L Carbon Dioxide 27 Anion Gap 10.0 BUN 12 Creatinine 0.5 L Estimated GFR (MDRD) 165 Glucose 87 Calcium 9.2 Total Bilirubin 0.6 AST 28 ALT 25 Alkaline Phosphatase 84 Ammonia B-Natriuretic Peptide Total Protein 7.3 Albumin 3.9 Globulin 3.4 Albumin/Globulin Ratio 1.1 Lipase 32 11/25/21 11/25/21 15:34 15:34 WBC RBC Hgb Hct MCV MCH MCHC RDW Plt Count MPV Neut # (Auto) Lymph # (Auto) Russell # (Auto) Eos # (Auto) Baso # (Auto) Absolute Nucleated RBC Nucleated RBC % PT INR Sodium Potassium Chloride Carbon Dioxide Anion Gap BUN Creatinine Estimated GFR (MDRD) Glucose Calcium Total Bilirubin AST ALT Alkaline Phosphatase Ammonia 12.2 B-Natriuretic Peptide 72 Total Protein Albumin Globulin Albumin/Globulin Ratio Lipase PD MEDICAL DECISION MAKING - ED course Complexity details: reviewed results, re-evaluated patient, considered differential, d/w patient ED course: 71-year-old male was advised to come to the emergency department for evaluation of abnormal outpatient screening labs obtained yesterday. He was notified that he had an elevated white blood cell count as well as a low sodium level. He would not have presented to the emergency department otherwise. He does use alcohol excessively he reports on average of 8-9 beers a day. Today screening labs showed no significant Leukocytosis or anemia. His sodium is 126. He has previously been admitted to this hospital with hyponatremia. However today the patient is asymptomatic. I suspect that this is likely related to beer potomania. Clinically he is hemodynamic dynamically and neurologically stable. He has no signs of withdrawal at the time of my evaluation in the emergency department. I discussed with the patient that his hyponatremia is likely secondary to alcohol abuse. We discussed that he would likely need detox in order to stop drinking given the long history of alcoholism. He is not yet ready to stop d rinking entirely or to enter detox but he was given these resources. He is advised close follow-up with his primary care provider as an outpatient. As he was not yet ready to stop drinking a prescription for Librium was not sent. Otherwise he is recommended to have his labs followed next week. If at any point he develops headache, slurred speech fainting episodes then he should return immediately to the ER for second evaluation Departure - Departure Disposition: Home, Self Care Clinical Impression: Hyponatremia, Alcohol abuse Instructions: ED Alcohol Abuse Comments: You are advised to come to the emergency department today for evaluation of abnormal outpatient labs. Your sodium level today is 126. This is low but you are not showing any signs or symptoms associated with it. Your sodium level is low because you drink excessively. This is called beer potomania. The low sodium level is why you have begun to have some swelling of your lower legs. However you cannot stop drinking suddenly. You would go into alcohol withdrawal and this can be fatal. When you are ready to stop drinking please call one of the resources given to you to talk about entering detox. I do recommend that you cut back your beer intake by about 50 to 60% but do not stop drinking suddenly as this could be life-threatening. If at any point you develop sudden severe headache, have slurred speech, have chest pain or shortness of air you should return immediately to the ER for repeat evaluation
[2021-11-25 15:41] LABS: BASOPHILS % (AUTO) 0.4 %; EOSINOPHILS # (AUTO) 0.1 10^3/uL (0.0-0.7); EOSINOPHILS % (AUTO) 0.8 %; HCT - HEMATOCRIT 39.5 % (42.0-52.0); HGB - HEMOGLOBIN 14.2 g/dL (14.0-18.0); LYMPHOCYTES # (AUTO) 0.7 10^3/uL (1.5-3.5); LYMPHOCYTES % (AUTO) 7.9 %; MEAN CORPUSCULAR HEMOGLOBIN 33.6 pg (27.0-31.0); MEAN CORPUSCULAR HGB CONC 35.9 g/dL (32.0-36.0); MEAN CORPUSCULAR VOLUME 93.4 fL (80.0-94.0); MEAN PLATELET VOLUME 8.5 fL (7.4-11.4); MONOCYTES # (AUTO) 0.8 10^3/uL (0.0-1.0); MONOCYTES % (AUTO) 8.4 %; NEUTROPHILS # (AUTO) 7.3 10^3/uL (1.5-6.6); NEUTROPHILS % (AUTO) 82.3 %; PLT - PLATELET COUNT 202 10^3/uL (130-450); RED BLOOD COUNT 4.23 10^6/uL (4.70-6.10); WHITE BLOOD COUNT 8.9 x10^3/uL (4.8-10.8)
[2021-11-25 15:54] LABS: ALBUMIN 3.9 g/dL (3.2-5.5); ALBUMIN/GLOBULIN RATIO 1.1 (1.0-2.2); BILIRUBIN,TOTAL 0.6 mg/dL (0.2-1.0); CALCIUM 9.2 mg/dL (8.5-10.3); CREATININE 0.5 mg/dL (0.6-1.2); POTASSIUM 4.5 mmol/L (3.5-5.0); TOTAL PROTEIN 7.3 g/dL (6.7-8.2)
[2021-11-25 16:11] LABS: INR 0.9 (0.8-1.2)
== END 2021-11-25 16:29 | disposition home or self-care (01) ==
LOC: ED 15:07
DX: E87.1 Hypo-osmolality and hyponatremia (principal); F10.10 Alcohol abuse, uncomplicated; I10 Essential (primary) hypertension; F17.200 Nicotine dependence, unspecified, uncomplicated; J43.9 Emphysema, unspecified
CPT/HCPCS: 36415; 80053; 82140; 83690; 83880; 85025; 85610; 99283

== ENCOUNTER 2022-03-18 18:49 | Emergency (ER) | payer MEDICARE, OTHER ==
[2022-03-18 19:10] VITALS: BP 148/94
--- NOTE | 2022-03-18 20:59 | ED Physician Documentation ---
History of Present Illness - Stated complaint Stated Complaint: NECK PX - Chief complaint Chief Complaint: Trauma Hd/Nk - Additonal information Additional information: 71-year-old male presents emergency department for evaluation of neck pain. Reports been present for about a week after a fall. He is uncertain why or how he fell. States he has been taking Tylenol without relief of the pain. Patient denies any recent alcohol use though past ER visits have been related to alcohol. At this time patient appears clinically sober. Review of Systems Constitutional: reports: Reviewed and negative Nose: reports: Reviewed and negative Musculoskeletal: reports: Neck pain Neurologic: reports: Reviewed and negative Psychiatric: reports: Reviewed and negative PD PAST MEDICAL HISTORY - Past Medical History Cardiovascular: None, Hypertension Respiratory: COPD, Emphysema Endocrine/Autoimmune: None GI: None : Frequency HEENT: None Psych: None Musculoskeletal: Osteoarthritis Derm: None - Past Surgical History Past Surgical History: No General: Other Ortho: Shoulder arthroplasty, Arthroscopic surgery - Present Medications Home Medications: Ambulatory Orders Medication Instructions Recorded Confirmed Albuterol Sulfate [Proair Hfa 1 - 2 puffs INH Q4H PRN 05/26/21 05/26/21 Inhaler] Fluticasone/Salmeterol [Advair 1 puffs INH BID 05/26/21 05/26/21 250-50 Diskus] Pnv No.95/Ferrous Fum/Folic AC 1 each PO DAILY #30 tablet 05/27/21 [ Tablet] Thiamine [Vitamin B-1] 100 mg PO DAILY #30 tablet 05/27/21 amLODIPine [Norvasc] 5 mg PO DAILY #30 tablet 05/27/21 - Allergies Allergies/Adverse Reactions: Allergies Allergy/AdvReac Type Severity Reaction Status Date / Time No Known Drug Allergies Allergy Verified 03/18/22 19:10 - Social History Does the pt smoke?: Yes Smoking Status: Current every day smoker Does the pt drink ETOH?: Yes Does the pt have substance abuse?: Yes - Immunizations Immunizations are current?: Yes Immunizations: TDAP >10years/unknown - POLST Patient has POLST: No POLST Status: Full Code PD ED PE NORMAL - General General: Alert and oriented X 3. No: No acute distress (Disheveled poorly dressed. Poor hygiene.) - HEENT HEENT: Atraumatic, PERRL, Moist mucous membranes, Dentition benign (Missing most of his teeth) - Neck Neck: Supple, no meningeal sign, No adenopathy, Other (Full range of motion of the cervical spine. Mild tenderness elicited in the lower cervical spine withotu stepoff or deformity) - Cardiac Cardiac: RRR, No murmur - Respiratory Respiratory: No respiratory distress - Abdomen Abdomen: Normal bowel sounds, Soft - Back Back: No CVA TTP - Derm Derm: Normal color, Warm and dry - Neuro Neuro: Alert and oriented X 3, general cleaner 2-12 intact, No motor deficit, Other (motor strength 5/5 BUE. ) Eye Opening: Spontaneous Motor: Obeys Commands Verbal: Oriented GCS Score: 15 Results - Vitals Vitals: Vital Signs - 24 hr 03/18/22 19:06 Temperature 36.8 C Heart Rate 79 Respiratory 20 Rate Blood Pressure 148/94 H O2 Saturation 96 Oxygen O2 Source Room air - Rads (name of study) CT head Radiology: Final report received (No acute intracranial abnormality) Cervical CT Radiology: Final report received (No fracture or subluxation. Straightening of cervical lordosis with minimal retrolisthesis at C3-C5. Multilevel degenerative changes throughout the cervical spine) PD MEDICAL DECISION MAKING - ED course Complexity details: reviewed results, d/w patient ED course: 71-year-old male presents emergency department for evaluation of persistent pain in his neck after a fall about a week ago. Alcohol use he does have a history of heavy alcoholism and I suspect that may be a contributing factor. Clinically he is ranging his neck well and has no motor deficits. We did obtain CT images o f the head and neck it were without acute traumatic findings. I am recommending patient to use Tylenol for discomfort. Given history of alcohol abuse I do not think that opioids would be safe at this time. He is discharged home in stable condition. Emergent return precautions discussed Departure - Departure Disposition: 01 Home, Self Care Clinical Impression: Fall from ground level, Neck pain Condition: Stable Comments: Yosef you saw a provider in the emergency department today because you have had some persistent pain in your neck after a fall about a week ago. We did do a CT of your head neck that did not show any broken bones. There is some straightening of the natural curvature of your cervical spine and this likely indicates some spasm or strain. I do recommend that you use a warm compress to help alleviate spasm. Tylenol should be taken for pain. Return to the emergency department if you find that your symptoms worsen, you develop weakness or numbness in your arms.
--- NOTE | 2022-03-18 21:03 | CT Report ---
PROCEDURE: HEAD WO INDICATIONS: Head and neck injury TECHNIQUE: Noncontrast 4.5 mm thick angled axial sections acquired from the foramen magnum to the vertex. For r adiation dose reduction, the following was used: automated exposure control, adjustment of mA and/or kV according to patient size. COMPARISON: None. FINDINGS: Image quality: Excellent. CSF spaces: There is mild mild cerebral volume loss with prominence of the ventricles and sulci. Bas al cisterns are patent. No extra-axial fluid collections. Brain: No intracranial hemorrhage, mass, or mass effect. Sexton-white matter interface is preserved. T here are subcortical and periventricular white matter hypodensities consistent with chronic small ves ganesh ischemic changes. Skull and face: Calvarium and visualized facial bones are intact, without suspicious lesions. Sinuses: Visualized sinuses demonstrate mild mucosal thickening within the maxillary and ethmoid sin uses. Mastoid air cells are clear. IMPRESSION: 1. No acute intracranial abnormality. Reviewed by: Ryan Fernandes MD on 03/18/2022 9:01 PM PDT Approved by: Ryan Fernandes MD on 03/18/2022 9:01 PM PDT Station ID: [id number]
--- NOTE | 2022-03-18 21:05 | CT Report ---
PROCEDURE: CERVICAL SPINE WO INDICATIONS: Head and neck injury TECHNIQUE: Noncontrast 3 mm thick sections acquired from the skull base to the T4 level. Sagittal and coronal r eformats were then constructed. For radiation dose reduction, the following was used: automated exp osure control, adjustment of mA and/or kV according to patient size. COMPARISON: None. FINDINGS: Image quality: Excellent. Bones: No fractures or subluxation. There is straightening of the cervical lordosis. Minimal retrol isthesis demonstrated at C3-C4 and C4-C5. There is multilevel degenerative disc disease, uncovertebra l joint arthropathy, and facet joint arthropathy. Visualized superior ribs are intact. Soft tissues: Prevertebral soft tissues are normal in thickness. No paravertebral hematomas. No ap ical pneumothoraces. There are mild centrilobular exhibits changes within the visualized lungs. IMPRESSION: 1. No fracture or subluxation. 2. Straightening of the cervical lordosis with minimal retrolisthesis at C3-C4 and C4-C5. 3. Multilevel degenerative changes throughout cervical spine. Reviewed by: Ryan Patel MD on 03/18/2022 9:03 PM PDT Approved by: Ryan Patel MD on 03/18/2022 9:03 PM PDT Station ID: [id number]
== END 2022-03-18 21:55 | disposition home or self-care (01) ==
LOC: ED 18:49
DX: M54.2 Cervicalgia (principal); F17.200 Nicotine dependence, unspecified, uncomplicated
CPT/HCPCS: 99282; 99284

== ENCOUNTER 2023-11-14 18:00 | Outpatient (CLI) | payer MEDICARE, OTHER | END 2023-11-14 23:59 | disposition critical access hospital (66) | LOC: EMS 18:00 | DX: R29.6 Repeated falls (principal); R07.81 Pleurodynia; M54.9 Dorsalgia, unspecified; R06.82 Tachypnea, not elsewhere classified; R06.89 Other abnormalities of breathing | CPT/HCPCS: A0425; A0429 ==

== ENCOUNTER 2023-11-14 18:23 | Inpatient (IN) | payer MEDICARE, OTHER ==
--- NOTE | 2023-11-14 18:29 | ED Physician Documentation ---
History of Present Illness - Stated complaint Stated Complaint: FALL/R FLANK PX - History obtained from History obtained from: Patient, EMS - Additonal information Additional information: 73-year-old gentleman with COPD continues to smoke it sounds like he is a fairly heavy drinker presents by ambulance. He has been falling a lot lately, and he had a particular fall yesterday which he says was just a mechanical fall where he tripped and fell over onto his right side and injured some ribs and he has pretty significant rib pain on the right. He says there is no other injury but he obviously has a scrape on the head and admits to "about 5 beers" today. He declines anything for pain on initial evaluation. History from patient's and paramedics initially and I am told that the daughter is on the way. He lives with the daughter. PD PAST MEDICAL HISTORY - Past Medical History Cardiovascular: None, Hypertension Respiratory: COPD, Emphysema Endocrine/Autoimmune: None GI: None : Frequency HEENT: None Psych: None Musculoskeletal: Osteoarthritis Derm: None - Past Surgical History Past Surgical History: No General: Other Ortho: Shoulder arthroplasty, Arthroscopic surgery - Present Medications Home Medications: Ambulatory Orders Medication Instructions Recorded Confirmed Albuterol Sulfate [Proair Hfa 1 - 2 puffs INH Q4H PRN 05/26/21 05/26/21 Inhaler] Fluticasone Propion/Salmeterol 1 puffs INH BID 05/26/21 05/26/21 [Advair 250-50 Diskus] Pnv No.95/Ferrous Fum/Folic AC 1 each PO DAILY #30 tablet 05/27/21 [ Tablet] Thiamine [Vitamin B-1] 100 mg PO DAILY #30 tablet 05/27/21 amLODIPine [Norvasc] 5 mg PO DAILY #30 tablet 05/27/21 - Allergies Allergies/Adverse Reactions: Allergies Allergy/AdvReac Type Severity Reaction Status Date / Time No Known Drug Allergies Allergy Verified 11/14/23 18:50 - Social History Does the pt smoke?: Yes Smoking Status: Current every day smoker Does the pt drink ETOH?: Yes Does the pt have substance abuse?: Yes - Immunizations Immunizations are current?: Yes Immunizations: TDAP >10years/unknown - POLST Patient has POLST: No POLST Status: Full Code PD ED PE NORMAL - Vitals Vital signs reviewed: Yes - General General: Alert and oriented X 3, Other (He is disheveled and dirty, admits to no recent showering. Smells of urine and alcohol.) - HEENT HEENT: PERRL, EOMI, Other (Scrape in the right supraorbital area) - Neck Neck: No bony TTP - Cardiac Cardiac: RRR, No murmur - Respiratory Respiratory: No respiratory distress, Other (Rhonchorous throughout, but nonlabored. There is an abrasion that is very shallow in the right posterior axillary line with underlying tenderness.) - Abdomen Abdomen: Non tender - Back Back: No CVA TTP, No spinal TTP - Derm Derm: Normal color, Warm and dry - Extremities Extremities: No deformity, No tenderness to palpate, Normal ROM s pain, Other (Mottled hands but good radial artery pulses.) - Neuro Neuro: Alert and oriented X 3, No motor deficit, No sensory deficit, Normal speech Eye Opening: Spontaneous Motor: Obeys Commands Verbal: Oriented GCS Score: 15 Results - Vitals Vitals: Vital Signs - 24 hr 11/14/23 18:43 Temperature 36.6 C Heart Rate 85 Respiratory 22 Rate Blood Pressure 133/72 H O2 Saturation 87 L Oxygen O2 Source Room air - Labs Labs: Laboratory Tests 11/14/23 11/14/23 18:35 18:35 WBC 15.3 H RBC 3.94 L Hgb 12.7 L Hct 35.8 L MCV 90.9 MCH 32.2 H MCHC 35.5 RDW 11.2 L Plt Count 177 MPV 8.6 Neut # (Auto) 14.2 H Lymph # (Auto) 0.2 L [place] # (Auto) 0.7 Eos # (Auto) 0.0 Baso # (Auto) 0.0 Absolute Nucleated RBC 0.00 Nucleated RBC % 0.0 Sodium 112 L* Potassium 4.1 Chloride 74 L* Carbon Dioxide 32 Anion Gap 6.0 BUN 17 Creatinine 0.5 L Estimated GFR (MDRD) 164 Glucose 157 H Calcium 9.2 Magnesium 1.8 Total Bilirubin 1.1 H AST 58 H ALT 56 Alkaline Phosphatase 60 Total Protein 7.1 Albumin 4.4 Globulin 2.7 Albumin/Globulin Ratio 1.6 Lipase < 10 L Ethyl Alcohol < 10.0 - Rads (name of study) CT of the head showing possible mastoid effusions, otherwise unremarkable. CT of the C-spine showing moderate spondylosis, no fracture Relevant Findings:: Final report received, EMP independent interpretation of test CT abdomen and pelvis demonstrates possibly a superior endplate fracture of L1 and 3.4 cm AAA Relevant Findings:: Final report received, EMP independent interpretation of test CT of the chest with contrast demonstrates moderate right pneumothorax and pulmonary opacities with nondisplaced fractures of 7 through 12th ribs. Relevant Findings:: Final report received, EMP independent interpretation of test Procedures - Chest Tube (location) - Major right 4th middle axillary line Chest tube preparation: Consent obtained, Unable to consent, Time out completed, Sterile prep and drape Chest tube location: Right, Mid axillary line Chest tube anesthesia: Lidocaine Chest tube size: 20 Chest tube return: Air Chest tube after care: Sutured, Confirmed with xray, Pt tolerated well - Procedural sedation Sedation prep: Informed consent, Time out completed, ASA 3 - severe disease Sedation Medications: versed Mallampati classification: I Patient status during sedation: Responds to tactile Sedation recovery: Recovered uneventfully Time in sedation (Minutes): 15 PD Medical Decision Making - ED course ED course: This is a 73-year-old alcoholic who presents by ambulance. He had a recent fall with right chest wall injury. He looks unkempt and ill both acutely and chronically. He has chest wall tenderness and given his alcoholism concern for occult injuries was high as well. We did labs which demonstrated a leukocytosis with anemia. His CMP was notable for a sodium of 112 and a chloride of 74. Blood alcohol was negative. He is at high risk for seizures given potential for alcohol withdrawal and his hyponatremia and he was given hypertonic saline IV, 50 mL of 3%. Subsequent imaging demonstrated multiple incidental findings but most markedly multiple rib fractures on the right and a moderate pneumothorax. Dr. Jarrett, our on-call surgeon was consulted by phone at approximately 830 who will consult but defers to medicine for admission feeling that his medical issues are of bigger concern right now than his traumatic issues. He asked me to place a chest tube which was done under sedation with fentanyl and Versed without immediate issue. Telehealth consultation placed for admission at 9:20 PM for ICU. - Critical Care Time(min): 42 Time Includes: Direct patient care, Review records, Reassess patient, Document care, Coordinate care, Medical consult, Family consult for tx dec Data interpretation: Labs, Pulse ox Procedures included in critical care time: Peripheral IV Procedures excluded from critical care time: Chest tube, EKG Departure - Departure Disposition: 66 [facility] DC/Xfer Clinical Impression: Alcoholism, Acute hyponatremia, Acute pneumothorax Rib fractures Qualifiers: Encounter type: initial encounter Fracture type: closed Laterality: right Qualified Code(s): S22.41XA - Multiple fractures of ribs, right side, initial encounter for closed fracture AAA (abdominal aortic aneurysm) Qualifiers: Abdominal aorta location: unspecified Presence of rupture: without rupture Qualified Code(s): I71.40 - Abdominal aortic aneurysm, without rupture, unspecified Condition: Critical
[2023-11-14 18:40] LABS: BASOPHILS % (AUTO) 0.1 %; HCT - HEMATOCRIT 35.8 % (42.0-52.0); HGB - HEMOGLOBIN 12.7 g/dL (14.0-18.0); LYMPHOCYTES # (AUTO) 0.2 10^3/uL (1.5-3.5); LYMPHOCYTES % (AUTO) 1.5 %; MEAN CORPUSCULAR HEMOGLOBIN 32.2 pg (27.0-31.0); MEAN CORPUSCULAR HGB CONC 35.5 g/dL (32.0-36.0); MEAN CORPUSCULAR VOLUME 90.9 fL (80.0-94.0); MEAN PLATELET VOLUME 8.6 fL (7.4-11.4); MONOCYTES # (AUTO) 0.7 10^3/uL (0.0-1.0); MONOCYTES % (AUTO) 4.6 %; NEUTROPHILS # (AUTO) 14.2 10^3/uL (1.5-6.6); NEUTROPHILS % (AUTO) 93.1 %; PLT - PLATELET COUNT 177 10^3/uL (130-450); RED BLOOD COUNT 3.94 10^6/uL (4.70-6.10); RED CELL DISTRIBUTION WIDTH 11.2 % (12.0-15.0); WHITE BLOOD COUNT 15.3 x10^3/uL (4.8-10.8)
[2023-11-14] MEDS ORDERED: THIAMINE 100 MG/1 ML 2 ML MDV ONE (18:51)
[2023-11-14 18:55] LABS: ETOH - ETHANOL < 10.0 mg/dL; LIPASE < 10 U/L (11-82); MAGNESIUM 1.8 mg/dL (1.7-2.3)
[2023-11-14] MEDS: THIAMINE INJ 100 MG in SODIUM CHLORIDE 0.9% 50 ML IV STA (18:58)
[2023-11-14] MEDS: SODIUM CHLORIDE 0.9% 1,000 ML IV STA (18:58)
[2023-11-14 18:59] LABS: ALBUMIN 4.4 g/dL (3.2-5.5); ALBUMIN/GLOBULIN RATIO 1.6 (1.0-2.2); ALKALINE PHOSPHATASE 60 IU/L (42-121); ALT ALANINE AMINOTRANSFERASE 56 IU/L (10-60); AST ASPARTATE AMINOTRANSFERASE 58 IU/L (10-42); BILIRUBIN,TOTAL 1.1 mg/dL (0.2-1.0); BUN - BLOOD UREA NITROGEN 17 mg/dL (6-20); CALCIUM 9.2 mg/dL (8.5-10.3); CARBON DIOXIDE - CO2 32 mmol/L (21-32); CHLORIDE 74 mmol/L (101-111); CREATININE 0.5 mg/dL (0.6-1.3); GFR - MDRD 164 (>89); GLUCOSE 157 mg/dL (74-104); POTASSIUM 4.1 mmol/L (3.5-4.5); SODIUM 112 mmol/L (135-145); TOTAL PROTEIN 7.1 g/dL (6.4-8.9)
[2023-11-14] MEDS ORDERED: iohexoL-300 100 ML VIAL ONE (19:04)
[2023-11-14] MEDS: SODIUM CHLORIDE 3% HYPERTONIC 50 ML IV SCH (19:08)
[2023-11-14] MEDS: iohexoL-300 100 ML VIAL IVP ONE (20:15)
--- NOTE | 2023-11-14 20:42 | CT Report ---
PROCEDURE: Head WO INDICATIONS: head inj etoh TECHNIQUE: Noncontrast 4.5 mm thick angled axial sections acquired from the foramen magnum to the vertex. For r adiation dose reduction, the following was used: automated exposure control, adjustment of mA and/or kV according to patient size. COMPARISON: 03/18/2022 FINDINGS: Image quality: Diagnostic CSF spaces: Basal cisterns are patent. Lateral ventricles are symmetric. Volume: Vascular calcifications. Periventricular white matter disease is commonly seen with chronic m icroangiopathy. Volume loss is present. These findings are mild to moderate. Brain: No intracranial hemorrhage. Sexton-white differentiation is grossly maintained. Craniofacial structures: No significant paranasal sinus opacity. There may be mastoid effusions. IMPRESSION: No acute intracranial abnormality. Possible mastoid effusions. Reviewed by: De Ash MD on 11/14/2023 8:41 PM PDT Approved by: De Ash MD on 11/14/2023 8:41 PM PDT Station ID: [id number]
--- NOTE | 2023-11-14 20:44 | CT Report ---
PROCEDURE: Cervical Spine WO INDICATIONS: head/chest inj etoh TECHNIQUE: Noncontrast 3 mm thick sections acquired from the skull base to the T4 level. Sagittal and coronal r eformats were then constructed. For radiation dose reduction, the following was used: automated exp osure control, adjustment of mA and/or kV according to patient size. COMPARISON: 03/18/2022 FINDINGS: Image quality: Diagnostic Bones: Moderate spondylotic changes and straightening of the normal cervical lordosis. Findings are s imilar compared to 2021 CT. No acute vertebral body height loss. No traumatic subluxation. There is p artial fusion of C2 on C3. Soft tissues: Chest findings are separately dictated. No actionable thyroid nodule identified. No pat hologic prevertebral soft tissue swelling IMPRESSION: No acute fracture/subluxation of the cervical spine. Moderate spondylotic changes. If there is high c oncern for further derangement, consider MRI evaluation. Chest findings are separately dictated Reviewed by: De Ash MD on 11/14/2023 8:43 PM PDT Approved by: De Ash MD on 11/14/2023 8:43 PM PDT Station ID: [id number]
--- NOTE | 2023-11-14 20:48 | CT Report ---
PROCEDURE: Chest W INDICATIONS: chest inj r side CONTRAST: 100 ML OMNI 300 TECHNIQUE: After the administration of intravenous contrast, a CT scan of the chest was performed. Images were recorded and evaluated at appropriate window settings. Reformats: axial MIP of the chest, coronal and sagittal. For radiation dose reduction, the following was used: automated exposure control, adjustme nt of mA and/or kV according to patient size. COMPARISON: None FINDINGS: Image quality: Diagnostic Lungs and pleura:Emphysematous changes. Moderate right pneumothorax. Underlying lung opacities are se en in the right upper lobe, lower lobe, and middle lobe. Bronchial wall thickening is also present. N o significant hemothorax component. Possible small pulmonary granulomas. Mediastinum, heart, and esophagus: There are coronary calcifications. No mediastinal hematoma. No pat hologic lymph nodes by size criteria. Chest wall and thyroid: Unremarkable Upper abdomen: Separately dictated Bones: Nondisplaced fractures of the seventh through 12th ribs. Segmental involvement is seen in the ninth rib. No acute fracture or traumatic subluxation of the thoracic spine. Abdominal findings and lumbar spine findings are separately dictated. IMPRESSION: Moderate right pneumothorax. No significant hemothorax component. Underlying pulmonary opacities like ly representing atelectasis, aspiration, and contusions. Consider future imaging surveillance to asse ss for resolution. Nondisplaced fractures of the right seventh through 12th ribs, segmental involvement in the right surinedr th rib. Other findings above. Reviewed by: De Ash MD on 11/14/2023 8:46 PM PDT Approved by: De Ash MD on 11/14/2023 8:46 PM PDT Station ID: [id number]
[2023-11-14] MEDS: fentaNYL 100 MCG/2 ML VIAL IVP STA ×3 (20:49→21:27)
--- NOTE | 2023-11-14 20:51 | CT Report ---
PROCEDURE: Abdomen/Pelvis W INDICATIONS: r flank inj iv only CONTRAST: 100 ML OMNI 300 TECHNIQUE: After the administration of intravenous contrast, a CT scan of the abdomen and pelvis was performed. Images were recorded and evaluated at appropriate window settings. Reformats: coronal and sagittal. F or radiation dose reduction, the following was used: automated exposure control, adjustment of mA and /or kV according to patient size. COMPARISON: None. FINDINGS: Image quality: Motion degraded Lower chest: Separately dictated Liver: Hepatic steatosis. No discrete capsular hematoma or laceration within the limits of motion art ifact Gallbladder and biliary system: Unremarkable, nondilated Pancreas: No ductal dilation Spleen: No capsular hematoma or laceration Adrenals: Left adrenal thickening Kidneys: No discrete hematoma or laceration. No calcified obstructing stone or hydronephrosis Vessels and lymph nodes: Abdominal aortic aneurysm measuring up to 3.4 cm. Aortoiliac calcifications. No pathologic lymph nodes by size criteria. Bowel and peritoneum: No evidence of small bowel obstruction. No pathologic ascites. No evidence of h emoperitoneum Body wall: Small fat-containing left inguinal hernia. Pelvis: Bladder is unremarkable, mildly distended. Prostate is not well evaluated study, mildly heter ogeneous Bones: The pelvic ring appears intact. There are degenerative changes. Mild height loss of the superior endplate of L1, less than 50% IMPRESSION: No acute intra-abdominal or intrapelvic traumatic abnormality. Mild height loss at the superior endplate of L1, possibly acute. Abdominal aortic aneurysm 3.4 cm. Other findings above. Reviewed by: De Ash MD on 11/14/2023 8:50 PM PDT Approved by: De Ash MD on 11/14/2023 8:50 PM PDT Station ID: [id number]
[2023-11-14] MEDS: MIDAZOLAM 2 MG/2 ML VIAL IVP STA (20:57)
[2023-11-14] MEDS: LIDOCAINE 1%-EPI 1:100000 20 ML MDV SUBQ STA (20:59)
--- NOTE | 2023-11-14 21:03 | CONSULTATION NOTE ---
Surgery Consult - Consult Date Consult Date: 11/14/23 Requesting Provider: Nova - Chief Complaint Chief Complaint: Multiple right rib fractures, right pneumothorax - Home Meds/Allergies Home Medications: Patient History Medication Instructions Recorded Confirmed Albuterol Sulfate [Proair Hfa 1 - 2 puffs INH Q4H PRN 05/26/21 05/26/21 Inhaler] Fluticasone Propion/Salmeterol 1 puffs INH BID 05/26/21 05/26/21 [Advair 250-50 Diskus] Allergies/Adverse Reactions: Allergies Allergy/AdvReac Type Severity Reaction Status Date / Time No Known Drug Allergies Allergy Verified 11/14/23 18:50 - Vital Signs Vital Signs: Last Vital Signs Temp 98 F 11/14/23 18:43 Pulse 85 11/14/23 18:43 Resp 22 11/14/23 18:43 BP 133/72 H 11/14/23 18:43 Pulse Ox 87 L 11/14/23 18:43 O2 Flow Rate Intake & Output: Intake & Output 11/11/23 11/12/23 11/13/23 11/14/23 23:59 23:59 23:59 23:59 Intake Total 51 Balance 51 - Lab Results Result Diagrams: 11/14/23 18:35 11/14/23 18:35 - Consultation Note Consultation Note: General Surgery Consultation Note - Rib Fracture/Pneumothorax Assessment: 1) Multiple right rib fractures (7-12) with associated right pneumothorax 2) Hyponatremia 3) Alcohol abuse Recommendation: - admit to ICU per hospital rib fracture protocol 1) Lidocaine patch right chest wall. Change q 12 hrs 2) Acetaminophen, Ibuprofen/Ketorolac and Pepcid (gastric protection), Oxycodone 3) IV Dilaudid as needed 4) IS 5-6 x per hour 5) Supplemental oxygen as needed 6) Dangle at bedside/ambulate 4-6 x a day 7) Consider epidural catheter (consult anesthesia) if above analgesic measures fail to provide enough relief for adequate pulmonary hygiene 8) Chest tube to pleura-vac 9) CXR in am 10) Surgery will follow <><><><><> Reason for Consultation GLF with multiple right rib fractures and right pneumothorax FLIP Navas is a 73 year old male who sustained a GLF 24-48 hours ago and has continued right chest pain. He brought himself to the ED and was found to have multiple right rib fractures, a right pneumothorax, and severe hyponatremia. A right thoracostomy rube was inserted by Dr. Bhatt with clinical resolution of the right pneumothorax (Post-procedure CXR pending at the time of this entry). The patient was admitted to the Medical Hospitalist Service for management of his severe metabolic abnormalities and because he meets our hospital's rib fracture policy for ICU management. Julia is sleeping from the sedation used to place his chest tube and is unable to provide a history at this time. Past Medical History HTN, COPD, Emphysema, ETOH abuse Past Surgical History Shoulder arthroscopy Social History +Cig; + ETOH abuse Current Medications - See above Allergies - See above ROS Pertinent positives Chest wall pain VS - See above PE GENERAL APPEARANCE: Normal development, normal body habitus PSYCHIATRIC: Comfortable and sedated from the recent chest tube placement NECK: No crepitus, lymphadenopathy, or thyromegaly LUNGS: Clear to auscultation without wheezing; No use of accessory muscles to breathe; Breath sounds equal by anterior exam bilaterally CHEST WALL: Tenderness right lateral chest wall without flail; Chest tube in place and connected to pleuravac which is connected to wall suction. There is no evidence of a persistent air leak. Post procedure chest x-ray is pending Labs - See above Imaging CT Chest - right pneumothorax, no hemothorax, non-displaced fractures of ribs 7- [address] Abd - ne intra-abdominal injury identified CT Cervical Spine - WNL CT Head - No intracranial injury All images were personally reviewed by me for this encounter. Curly Link MD, FACS General Surgery Service
--- NOTE | 2023-11-14 22:16 | HISTORY & PHYSICAL EXAMINATION ---
Chief Complaint - Chief Complaint Chief Complaint: GLF, right rib pain History of Present Illness - Admitted From Admitted From:: home - History Obtained From Records Reviewed: yes History obtained from: patient, chart review, ER staff Exam Limitations: telemedicine - History of Present Illness HPI Comment/Other: Mr Vaz is a 73 yo M with history of COPD, alcohol dependence, HTN. Presents to the ER for evaluation of right sided rib pain after a fall, occurred approximately 2 days ago, he tripped and fell onto his right side. He was found to have moderate right pneumothorax and multiple right sided rib fractures. Ches t tube was placed in ER and general surgery consulted. Labs also revealed severe hyponatremia, Na 112. History is very limited at time of my evaluation, patient is drowsy from receiving multiple doses of fentanyl/versed for chest tube placement in ER, unable to obtain ROS. History - Past Medical History Cardiovascular: reports: None, Hypertension Respiratory: reports: COPD, Emphysema Endocrine/Autoimmune: reports: None GI: reports: None : reports: Frequency HEENT: reports: None Psych: reports: None Musculoskeletal: reports: Osteoarthritis Derm: reports: None MRSA Hx?: No - Past Surgical History General: reports: Other Ortho: reports: Shoulder arthroplasty, Arthroscopic surgery - Family & Social History Family History Comment/Other: The patient's mother had emphysema. Father was an alcoholic. Social History Notes: Patient lives with his . 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 He moved to [facility] with his family in 1988. Prior to that lived in [facility]. He has 2 daughters and 1 son. He smokes 1 pack of cigarettes per day. He has been smoking for about 46 years. He drinks 1/5 every 4 days and a sixpack a day. He occasionally uses marijuana. - POLST Patient has POLST: No POLST Status: Full Code Meds/Allgy - Home Medications Home Medications: Ambulatory Orders Medication Instructions Recorded Confirmed Albuterol Sulfate [Proair Hfa 1 - 2 puffs INH Q4H PRN 05/26/21 05/26/21 Inhaler] Fluticasone Propion/Salmeterol 1 puffs INH BID 05/26/21 05/26/21 [Advair 250-50 Diskus] Pnv No.95/Ferrous Fum/Folic AC 1 each PO DAILY #30 tablet 05/27/21 [ Tablet] Thiamine [Vitamin B-1] 100 mg PO DAILY #30 tablet 05/27/21 amLODIPine [Norvasc] 5 mg PO DAILY #30 tablet 05/27/21 - Allergies Allergies/Adverse Reactions: Allergies Allergy/AdvReac Type Severity Reaction Status Date / Time No Known Drug Allergies Allergy Verified 11/14/23 18:50 Review of Systems - All Other Systems All Other Systems: reports: Other (unable to obtain ROS, patient is drowsy secondary to medications) Exam - Vital Signs Reviewed Vital Signs: Yes Vital Signs: Vital Signs x48h Temp Pulse Resp BP Pulse Ox O2 Flow Rate 11/14/23 21:40 79 18 100 2 11/14/23 21:34 78 18 110/64 11/14/23 21:30 80 19 96/57 L 100 2 11/14/23 21:20 83 17 2 11/14/23 21:10 82 98 2 11/14/23 21:00 87 16 133/85 H 98 2 11/14/23 20:50 91 19 93 2 11/14/23 20:30 37.1 C 89 18 152/111 H 95 2 11/14/23 18:43 36.6 C 85 22 133/72 H 87 L - Physical Exam General Appearance: positive: No acute distress Respiratory: positive: No respiratory distress, Other (right sided chest tube in place) Neurologic/Psychiatric: positive: Other (patient does not answer orientation questions or follow commands at this time, he said "when did this happen" and dozes off) Conclusion/Plan - Lab Results Lab results reviewed: Yes Fish Bones: 11/14/23 18:35 11/14/23 18:35 - Diagnostic Imaging Results Diagnostic Imaging Results: positive: Final report reviewed - Other Other Results/Comments: Assessment/Plan: Right sided pneumothorax secondary to right rib fractures 7-12 -Secondary to ground level fall ~2 days ago, mechanical fall -R chest tube placed by ER, post procedure CXR shows resolution of PTX -General surgery consulted -Admit to ICU per rib fracture protocol Acute hypoxia -Secondary to above -Currently on 2 L NC -Continue to monitor closely and wean as tolerated Acute metabolic encephalopathy -Likely medication induced, recently received Versed and Fentanyl for chest tube placement -Per ER provider patient was able to provide somewhat appropriate history prior to medications, poor historian, was awake/alert Acute hyponatremia -Na 112 -Suspected beer potomania -Follow up urine studies -Trend Na q2h, patient has received 50 mL hypertonic saline in ER -Last labs from ~6 PM -Follow up repeat Na level now prior to ordering fluids - placed nursing communication -Consider hypertonic saline infusion pending results -Monitor closely in ICU -Goal ~4-6 meq Na rise over the next 24 hours History of COPD -Hold inhalers, continue scheduled nebs for now History of alcohol dependence -Unknown timing of last drink -Monitor on CINC protocol for now -Thiamine, folic acid DVT ppx: Heparin sc Full code Telemedicine Consult Details - Provider Location & Consult Time Telemedicine consultation conducted via videoconferencing?: Yes List names and roles of persons who participated in consult:: Tacos Deutsch, patient, ER provider Dr Bhatt Telemedicine provider location:: [facility]
--- NOTE | 2023-11-14 22:18 | PROVIDER PROGRESS NOTE ---
Progress Note General Surgery Progress Note Post-procedure CXR shows the chest tube to be in good position and the pneumothorax has resolved. No change in orders. Curly Link MD, FACS General Surgery Service
[2023-11-14] MEDS ORDERED: ONDANSETRON 4 MG/2 ML VIAL IVP PRN (22:31)
--- NOTE | 2023-11-14 22:32 | XRAY Report ---
PROCEDURE: Chest for Line Placement INDICATIONS: Post right-sided chest tube TECHNIQUE: One view of the chest was acquired. COMPARISON: Same-day CT FINDINGS: Surgical changes and devices: Right chest tube in place. Lungs and pleura: Right scattered opacities, particularly at the bases persist, likely contusions or aspiration. Trace right pneumothorax, decreased from prior CT Mediastinum: Normal heart size Bones and chest wall: Right rib fractures better assessed on CT IMPRESSION: Decreased right pneumothorax following chest tube placement. Scattered right lung opacities persist, likely contusions and/or aspiration. Consider future imaging surveillance to assess for resolution. Reviewed by: De Ash MD on 11/14/2023 10:30 PM PDT Approved by: De sAh MD on 11/14/2023 10:30 PM PDT Station ID: [id number]
[2023-11-14] MEDS ORDERED: LORazepam 1 MG TABLET PO PRN (22:39)
[2023-11-14] MEDS ORDERED: LORazepam 2 MG/ML VIAL IVP PRN (22:39)
[2023-11-14] MEDS: ACETAMINOPHEN 325 MG TABLET PO SCH (23:39)
[2023-11-14] MEDS: LIDOCAINE PATCH 5% TOP STA (23:47)
[2023-11-14] MEDS: ZINC OXIDE 12% OINT 57 GM TUBE TOP PRN (23:50)
[2023-11-14] MEDS: KETOROLAC 30 MG/ML VIAL IVP SCH (23:52)
[2023-11-15] MEDS: HYDROmorphone 0.5 MG/0.5 ML SYRINGE IVP PRN (00:31)
[2023-11-15] MEDS: DEXTROSE 5% 1,000 ML IV SCH (01:02)
[2023-11-15] MEDS: ALBUTEROL NEB 2.5 MG/3 ML INH SCH (05:23)
[2023-11-15] MEDS: IPRATROPIUM 0.2 MG/ML NEB INH SCH (05:24)
[2023-11-15] MEDS: SODIUM CHLORIDE FLUSH 0.9% 10 ML SYRINGE IVP SCH (05:30)
[2023-11-15 06:00] LABS: BASOPHILS % (AUTO) 0.1 %; HCT - HEMATOCRIT 34.5 % (42.0-52.0); HGB - HEMOGLOBIN 12.5 g/dL (14.0-18.0); LYMPHOCYTES # (AUTO) 0.4 10^3/uL (1.5-3.5); LYMPHOCYTES % (AUTO) 3.4 %; MEAN CORPUSCULAR HEMOGLOBIN 33.5 pg (27.0-31.0); MEAN CORPUSCULAR HGB CONC 36.2 g/dL (32.0-36.0); MEAN CORPUSCULAR VOLUME 92.5 fL (80.0-94.0); MEAN PLATELET VOLUME 9.4 fL (7.4-11.4); MONOCYTES # (AUTO) 0.8 10^3/uL (0.0-1.0); MONOCYTES % (AUTO) 6.2 %; NEUTROPHILS % (AUTO) 89.9 %; PLT - PLATELET COUNT 161 10^3/uL (130-450); RED BLOOD COUNT 3.73 10^6/uL (4.70-6.10); RED CELL DISTRIBUTION WIDTH 11.5 % (12.0-15.0); WHITE BLOOD COUNT 12.2 x10^3/uL (4.8-10.8)
[2023-11-15] MEDS ORDERED: ACETAMINOPHEN 500 MG TABLET PO SCH (06:00)
[2023-11-15 06:09] LABS: VBG PH 7.365 (7.31-7.41)
[2023-11-15 06:10] LABS: CALCIUM, IONIZED 1.05 mmol/L (1.15-1.33)
[2023-11-15] MEDS: IPRATROPIUM/ALBUTEROL 3 ML NEB INH SCH (06:30)
[2023-11-15] MEDS: CALCIUM GLUC 1,000MG/50ML-NACL 1,000 MG/50 ML BAG IV ONE ×2 (06:32→16:12)
[2023-11-15] MEDS: PANTOPRAZOLE 40 MG TABLET PO SCH (06:33)
[2023-11-15 06:50] LABS: CALCIUM 8.4 mg/dL (8.5-10.3); CREATININE 0.4 mg/dL (0.6-1.3); POTASSIUM 3.6 mmol/L (3.5-4.5)
[2023-11-15 07:05] LABS: MAGNESIUM 1.7 mg/dL (1.7-2.3); PHOSPHORUS 2.5 mg/dL (2.5-5.0)
[2023-11-15] MEDS ORDERED: POTASSIUM CHLOR 10 MEQ/100 ML 10 MEQ/100 ML BAG IV SCH (08:00)
[2023-11-15] MEDS ORDERED: POTASSIUM CHLORIDE 20 MEQ TABLET PO ONE (08:00)
[2023-11-15] MEDS: HEPARIN 5,000 UNIT/ML VIAL SUBQ SCH (08:04)
[2023-11-15] MEDS: POTASSIUM CHLOR 10 MEQ/100 ML 10 MEQ/100 ML BAG IV SCH (08:04)
--- NOTE | 2023-11-15 08:32 | XRAY Report ---
PROCEDURE: Chest 1V INDICATIONS: FU right pneumothorax TECHNIQUE: One view of the chest was acquired. COMPARISON: Chest x-ray 11/14/2023 FINDINGS: Surgical changes and devices: Right-sided chest tube is unchanged projecting over the medial aspect of the right upper lobe. Lungs and pleura: Persistent appearance of trace right pneumothorax. Scattered opacities are present within the right lung less prominent. Mediastinum: Mediastinal contours appear normal. Heart size is enlarged. Bones and chest wall: No suspicious bony lesions. Overlying soft tissues appear unremarkable. IMPRESSION: Stable appearance of chest tube as well as trace right pneumothorax. Decreased appearance of scattered right pulmonary opacities. Reviewed by: Ladonna Marx MD on 11/15/2023 8:31 AM PDT Approved by: Ladonna Marx MD on 11/15/2023 8:31 AM PDT Station ID: [id number]
[2023-11-15] MEDS: SODIUM CHLORIDE 3% HYPERTONIC 50 ML IV SCH ×2 (08:49→12:22)
--- NOTE | 2023-11-15 09:32 | PROVIDER PROGRESS NOTE ---
Subjective - Prog Note Date Prog Note Date: 11/15/23 - Subjective Subjective: resting comfortably. I did not awaken him Objective - Vital Signs/Intake & Output Vital Signs: Vital Signs x48h Temp Pulse Pulse Resp BP Pulse Ox O2 Flow Rate 11/15/23 09:00 88 24 98/60 96 1 11/15/23 08:00 37.3 C 79 15 102/64 95 1 11/15/23 07:00 79 15 98/53 L 93 1 11/15/23 06:00 79 16 122/52 L 92 1 11/15/23 05:45 2 11/15/23 05:43 82 16 2 11/15/23 05:00 82 17 116/62 93 1 11/15/23 04:00 79 13 115/61 95 1 11/15/23 03:00 76 14 103/55 L 95 1 11/15/23 02:00 74 15 109/59 L 96 1 Intake & Output: Intake & Output 11/12/23 11/13/23 11/14/23 11/15/23 23:59 23:59 23:59 23:59 Intake Total 1101 805 Output Total 0 695 Balance 1101 110 - Objective General Appearance: positive: No acute distress Respiratory: positive: No respiratory distress, Other (minimal peural vac output. no airleak apparent) - Lab Results Fish Bones: 11/15/23 05:00 11/15/23 07:00 Other Labs: Lab Results x24hrs 11/15/23 11/15/23 11/15/23 Range/Units 07:00 05:00 05:00 WBC (4.8-10.8) x10^3/uL RBC (4.70-6.10) 10^6/uL Hgb (14.0-18.0) g/dL Hct (42.0-52.0) % MCV (80.0-94.0) fL MCH (27.0-31.0) pg MCHC (32.0-36.0) g/dL RDW (12.0-15.0) % Plt Count (130-450) 10^3/uL MPV (7.4-11.4) fL Neut # (Auto) (1.5-6.6) 10^3/uL Lymph # (Auto) (1.5-3.5) 10^3/uL [place] # (Auto) (0.0-1.0) 10^3/uL Eos # (Auto) (0.0-0.7) 10^3/uL Baso # (Auto) (0.0-0.1) 10^3/uL Absolute Nucleated RBC x10^3/uL Nucleated RBC % /100WBC VBG pH 7.365 (7.31-7.41) Ionized Calcium 1.05 L (1.15-1.33) mmol/L Sodium 115 L* (135-145) mmol/L Potassium (3.5-4.5) mmol/L Chloride (101-111) mmol/L Carbon Dioxide (21-32) mmol/L Anion Gap (6-13) BUN (6-20) mg/dL Creatinine (0.6-1.3) mg/dL Estimated GFR (MDRD) (>89) Glucose (74-104) mg/dL Calcium (8.5-10.3) mg/dL Phosphorus 2.5 (2.5-5.0) mg/dL Magnesium 1.7 (1.7-2.3) mg/dL Total Bilirubin (0.2-1.0) mg/dL AST (10-42) IU/L ALT (10-60) IU/L Alkaline Phosphatase (42-121) IU/L Total Protein (6.4-8.9) g/dL Albumin (3.2-5.5) g/dL Globulin (2.1-4.2) g/dL Albumin/Globulin Ratio (1.0-2.2) Lipase (11-82) U/L Nasal Screen MRSA (PCR) (NEGATIVE) Ethyl Alcohol mg/dL 11/15/23 11/15/23 11/15/23 Range/Units 05:00 05:00 05:00 WBC 12.2 H (4.8-10.8) x10^3/uL RBC 3.73 L (4.70-6.10) 10^6/uL Hgb 12.5 L (14.0-18.0) g/dL Hct 34.5 L (42.0-52.0) % MCV 92.5 (80.0-94.0) fL MCH 33.5 H (27.0-31.0) pg MCHC 36.2 H (32.0-36.0) g/dL RDW 11.5 L (12.0-15.0) % Plt Count 161 (130-450) 10^3/uL MPV 9.4 (7.4-11.4) fL Neut # (Auto) 11.0 H (1.5-6.6) 10^3/uL Lymph # (Auto) 0.4 L (1.5-3.5) 10^3/uL [place] # (Auto) 0.8 (0.0-1.0) 10^3/uL Eos # (Auto) 0.0 (0.0-0.7) 10^3/uL Baso # (Auto) 0.0 (0.0-0.1) 10^3/uL Absolute Nucleated RBC 0.00 x10^3/uL Nucleated RBC % 0.0 /100WBC VBG pH (7.31-7.41) Ionized Calcium (1.15-1.33) mmol/L Sodium 116 L* 115 L* (135-145) mmol/L Potassium 3.6 (3.5-4.5) mmol/L Chloride 80 L* (101-111) mmol/L Carbon Dioxide 29 (21-32) mmol/L Anion Gap 6.0 (6-13) BUN 16 (6-20) mg/dL Creatinine 0.4 L (0.6-1.3) mg/dL Estimated GFR (MDRD) 212 (>89) Glucose 117 H (74-104) mg/dL Calcium 8.4 L (8.5-10.3) mg/dL Phosphorus (2.5-5.0) mg/dL Magnesium (1.7-2.3) mg/dL Total Bilirubin (0.2-1.0) mg/dL AST (10-42) IU/L ALT (10-60) IU/L Alkaline Phosphatase (42-121) IU/L Total Protein (6.4-8.9) g/dL Albumin (3.2-5.5) g/dL Globulin (2.1-4.2) g/dL Albumin/Globulin Ratio (1.0-2.2) Lipase (11-82) U/L Nasal Screen MRSA (PCR) (NEGATIVE) Ethyl Alcohol mg/dL 11/15/23 11/15/23 11/15/23 Range/Units 02:30 00:21 00:00 WBC (4.8-10.8) x10^3/uL RBC (4.70-6.10) 10^6/uL Hgb (14.0-18.0) g/dL Hct (42.0-52.0) % MCV (80.0-94.0) fL MCH (27.0-31.0) pg MCHC (32.0-36.0) g/dL RDW (12.0-15.0) % Plt Count (130-450) 10^3/uL MPV (7.4-11.4) fL Neut # (Auto) (1.5-6.6) 10^3/uL Lymph # (Auto) (1.5-3.5) 10^3/uL [place] # (Auto) (0.0-1.0) 10^3/uL Eos # (Auto) (0.0-0.7) 10^3/uL Baso # (Auto) (0.0-0.1) 10^3/uL Absolute Nucleated RBC x10^3/uL Nucleated RBC % /100WBC VBG pH (7.31-7.41) Ionized Calcium (1.15-1.33) mmol/L Sodium 116 L* 116 L* (135-145) mmol/L Potassium (3.5-4.5) mmol/L Chloride (101-111) mmol/L Carbon Dioxide (21-32) mmol/L Anion Gap (6-13) BUN (6-20) mg/dL Creatinine (0.6-1.3) mg/dL Estimated GFR (MDRD) (>89) Glucose (74-104) mg/dL Calcium (8.5-10.3) mg/dL Phosphorus (2.5-5.0) mg/dL Magnesium (1.7-2.3) mg/dL Total Bilirubin (0.2-1.0) mg/dL AST (10-42) IU/L ALT (10-60) IU/L Alkaline Phosphatase (42-121) IU/L Total Protein (6.4-8.9) g/dL Albumin (3.2-5.5) g/dL Globulin (2.1-4.2) g/dL Albumin/Globulin Ratio (1.0-2.2) Lipase (11-82) U/L Nasal Screen MRSA (PCR) NEGATIVE (NEGATIVE) Ethyl Alcohol mg/dL 11/14/23 11/14/23 11/14/23 Range/Units 22:48 18:35 18:35 WBC 15.3 H (4.8-10.8) x10^3/uL RBC 3.94 L (4.70-6.10) 10^6/uL Hgb 12.7 L (14.0-18.0) g/dL Hct 35.8 L (42.0-52.0) % MCV 90.9 (80.0-94.0) fL MCH 32.2 H (27.0-31.0) pg MCHC 35.5 (32.0-36.0) g/dL RDW 11.2 L (12.0-15.0) % Plt Count 177 (130-450) 10^3/uL MPV 8.6 (7.4-11.4) fL Neut # (Auto) 14.2 H (1.5-6.6) 10^3/uL Lymph # (Auto) 0.2 L (1.5-3.5) 10^3/uL [place] # (Auto) 0.7 (0.0-1.0) 10^3/uL Eos # (Auto) 0.0 (0.0-0.7) 10^3/uL Baso # (Auto) 0.0 (0.0-0.1) 10^3/uL Absolute Nucleated RBC 0.00 x10^3/uL Nucleated RBC % 0.0 /100WBC VBG pH (7.31-7.41) Ionized Calcium (1.15-1.33) mmol/L Sodium 115 L* 112 L* (135-145) mmol/L Potassium 4.1 (3.5-4.5) mmol/L Chloride 74 L* (101-111) mmol/L Carbon Dioxide 32 (21-32) mmol/L Anion Gap 6.0 (6-13) BUN 17 (6-20) mg/dL Creatinine 0.5 L (0.6-1.3) mg/dL Estimated GFR (MDRD) 164 (>89) Glucose 157 H (74-104) mg/dL Calcium 9.2 (8.5-10.3) mg/dL Phosphorus (2.5-5.0) mg/dL Magnesium 1.8 (1.7-2.3) mg/dL Total Bilirubin 1.1 H (0.2-1.0) mg/dL AST 58 H (10-42) IU/L ALT 56 (10-60) IU/L Alkaline Phosphatase 60 (42-121) IU/L Total Protein 7.1 (6.4-8.9) g/dL Albumin 4.4 (3.2-5.5) g/dL Globulin 2.7 (2.1-4.2) g/dL Albumin/Globulin Ratio 1.6 (1.0-2.2) Lipase < 10 L (11-82) U/L Nasal Screen MRSA (PCR) (NEGATIVE) Ethyl Alcohol < 10.0 mg/dL Assessment/Plan - Problem List (1) Acute pneumothorax Impression: plan continue chest tube today. plan removal chest tube tomorrow ok to have chest tube off suction as needed
--- NOTE | 2023-11-15 10:13 | PHARMACY PROGRESS NOTE ---
- Best Possible Medication History Admit Date and Time: 11/14/23 2234 Processed by: Pharmacy Medications reviewed in ED?: No Medication History completed: Yes Patient Interview: Completed Secondary Source(s): Insurance records As the person ultimately responsible for medication therapy, providers are able to order a medication from an existing home medication list in [facility] via the "Reconcile Routine" prior to Confirmation of that medication by marketing support coordinator. Such practice is discouraged except when the physician, in their clinical judgment, deems that a medical need exists for a medication without regard to previous use.
[2023-11-15] MEDS: MAGNESIUM SULFATE 2 GRAM 2 GM/50 ML BAG IV ONE (10:53)
[2023-11-15] MEDS: AMPICILLIN/SULBACTAM 3 GM in SODIUM CHLORIDE 0.9% MINIBAG 100 ML IV SCH (11:59)
[2023-11-15 14:47] LABS: CALCIUM, IONIZED 1.07 mmol/L (1.15-1.33); MAGNESIUM 2.1 mg/dL (1.7-2.3); VBG PH 7.446 (7.31-7.41)
--- NOTE | 2023-11-15 14:52 | PROVIDER PROGRESS NOTE ---
Assessment/Plan - Problem List (1) Acute hyponatremia Assessment/Plan: --Exact etiology of hyponatremia is unclear. Does not appear to be on any medications which could contribute to SIADH. Endorses drinking 9 beers daily, perhaps a component of beer potomania. --Patient was on D5W when I took over. Have stopped this and started 3% NaCl. Goal correction is 6-8 mEq daily. Will use DDAVP 2mcg Q8H to avoid overcorrection. Thus far have given 150 mL of 3%. Will give an additional 150 mL of 3%. Would like to get Na up to ~118 by midnight. (3) Hypoxemia Assessment/Plan: --Likely exacerbated by aspiration pneumonia and pneumothorax. Continue on supplemental oxygen. (4) Acute pneumothorax Assessment/Plan: --General surgery consulted for management of chest tube. Right sided chest tube placed on 11/13. (5) Rib fractures Qualifiers: Encounter type: initial encounter Fracture type: closed Laterality: right Qualified Code(s): S22.41XA - Multiple fractures of ribs, right side, initial encounter for closed fracture Assessment/Plan: --Per general surgery as above. Multiple rib fractures on the right side (7- 12). --Analgesia available. (6) Alcohol abuse Assessment/Plan: --Endorses drinking 9 beers daily. Has never had withdrawals previous or withdrawal seizures. He does not recall the last time he was alcohol free. --Placed on CIWA protocol. Dispo: ICU. - Current Meds Current Meds: Current Medications Generic Name Dose Route Start Last Admin Trade Name Luis PRN Reason Stop Dose Admin Acetaminophen 650 mg 11/14/23 22:00 11/15/23 10:44 Acetaminophen 325 Mg Tablet PO 11/17/23 21:59 650 mg Q6H ESTEPHANIA Administration Albuterol/Ipratropium 3 ml 11/15/23 07:00 11/15/23 11:14 Ipratropium/Albuterol 3 Ml Neb INH 3 ml RTQID ESTEPHANIA Administration Heparin Sodium (Porcine) 5,000 unit 11/15/23 09:00 11/15/23 08:04 Heparin 5,000 Unit/Ml Vial SUBQ 5,000 unit BID ESTEPHANIA Administration Hydromorphone HCl 0.5 mg 11/14/23 21:28 11/15/23 00:31 Hydromorphone 0.5 Mg/0.5 Ml Syringe IVP 0.5 mg Q4H PRN Administration Severe chest wall pain Ampicillin Sodium/Sulbactam 100 mls @ 200 mls/hr 11/15/23 12:00 11/15/23 12:33 Sodium 3 gm/ Sodium Chloride IV Infused Q6HR ESTEPHANIA Infusion Ketorolac Tromethamine 30 mg 11/14/23 22:00 11/15/23 10:45 Ketorolac 30 Mg/Ml Vial IVP 11/15/23 22:01 30 mg Q6H ESTEPHANIA Administration Multi-Ingredient Ointment 1 applic 11/14/23 23:44 11/14/23 23:50 Zinc Oxide 12% Oint 57 Gm Tube TOP 1 applic PRN PRN Administration Skin Care Pantoprazole Sodium 40 mg 11/15/23 07:00 11/15/23 06:33 Pantoprazole 40 Mg Tablet PO Not Given QDAC ESTEPHANIA Sodium Chloride 10 ml 11/15/23 01:00 11/15/23 07:53 Sodium Chloride Flush 0.9% 10 Ml Syringe IVP 10 ml 0100,0900,1700 [facility] Administration - Lab Result Fish Bone Diagrams: 11/15/23 05:00 11/15/23 14:28 - Additional Planning My Orders: My Active Orders 11/15/23 Evaluate and Treat OT [OT] Routine Evaluate and Treat PT [PT] Routine 11/15/23 07:00 Ipratropium/Albuterol [Duoneb] 3 ml INH RTQID 11/15/23 12:00 Ampicillin/Sulbactam [Unasyn] 3 gm Sodium Chloride 0.9% Minibag [Normal Saline 0.9% Minibag] 100 ml IV Q6HR 11/15/23 14:28 SODIUM [CHEM] Timed 11/15/23 19:00 Budesonide [Pulmicort] 0.5 mg INH RTBID Formoterol Fumarate [Perforomist] 20 mcg INH RTBID 11/16/23 09:00 Nicotine 14 mg Patch [Nicoderm] 1 patch TOP DAILY Subjective - Subjective Patient Reports: Feeling Better, Resting Comfortably, No Complaints, Other (Hypoxic, pain is well controlled. No mental status changes.) Objective Vital Signs: Vital Signs - 24 hr 11/14/23 11/14/23 11/14/23 18:43 20:30 20:50 Temperature 36.6 C 37.1 C Heart Rate 85 89 91 Heart Rate [ Monitoring electrodes] Respiratory 22 18 19 Rate Blood Pressure 133/72 H 152/111 H Blood Pressure [Right Brachial artery] O2 Saturation 87 L 95 93 If not protocol 2 2 : Oxygen Flow, liters/minute 11/14/23 11/14/23 11/14/23 21:00 21:10 21:20 Temperature Heart Rate 87 82 83 Heart Rate [ Monitoring electrodes] Respiratory 16 17 Rate Blood Pressure 133/85 H Blood Pressure [Right Brachial artery] O2 Saturation 98 98 If not protocol 2 2 2 : Oxygen Flow, liters/minute 11/14/23 11/14/23 11/14/23 21:30 21:34 21:40 Temperature Heart Rate 80 78 79 Heart Rate [ Monitoring electrodes] Respiratory 19 18 18 Rate Blood Pressure 96/57 L 110/64 Blood Pressure [Right Brachial artery] O2 Saturation 100 100 If not protocol 2 2 : Oxygen Flow, liters/minute 11/14/23 11/15/23 11/15/23 23:00 00:20 00:22 Temperature 36.7 C Heart Rate 83 Heart Rate [ 85 Monitoring electrodes] Respiratory 18 18 Rate Blood Pressure 122/76 Blood Pressure 144/72 H [Right Brachial artery] O2 Saturation 94 99 If not protocol 2 2 2 : Oxygen Flow, liters/minute 11/15/23 11/15/23 11/15/23 01:00 02:00 03:00 Temperature Heart Rate Heart Rate [ 74 74 76 Monitoring electrodes] Respiratory 13 15 14 Rate Blood Pressure Blood Pressure 107/59 L 109/59 L 103/55 L [Right Brachial artery] O2 Saturation 95 96 95 If not protocol 1 1 1 : Oxygen Flow, liters/minute 11/15/23 11/15/23 11/15/23 04:00 05:00 05:43 Temperature Heart Rate 82 Heart Rate [ 79 82 Monitoring electrodes] Respiratory 13 17 16 Rate Blood Pressure Blood Pressure 115/61 116/62 [Right Brachial artery] O2 Saturation 95 93 If not protocol 1 1 2 : Oxygen Flow, liters/minute 11/15/23 11/15/23 11/15/23 05:45 06:00 07:00 Temperature Heart Rate Heart Rate [ 79 79 Monitoring electrodes] Respiratory 16 15 Rate Blood Pressure Blood Pressure 122/52 L 98/53 L [Right Brachial artery] O2 Saturation 92 93 If not protocol 2 1 1 : Oxygen Flow, liters/minute 11/15/23 11/15/23 11/15/23 08:00 09:00 10:00 Temperature 37.3 C Heart Rate Heart Rate [ 79 88 78 Monitoring electrodes] Respiratory 15 24 16 Rate Blood Pressure Blood Pressure 102/64 98/60 112/77 [Right Brachial artery] O2 Saturation 95 96 92 If not protocol 1 1 1 : Oxygen Flow, liters/minute 11/15/23 11/15/23 11/15/23 11:00 11:15 12:00 Temperature 36.9 C Heart Rate 74 Heart Rate [ 89 82 Monitoring electrodes] Respiratory 16 18 16 Rate Blood Pressure Blood Pressure 136/71 H 111/79 [Right Brachial artery] O2 Saturation 94 92 If not protocol 1 : Oxygen Flow, liters/minute 11/15/23 11/15/23 13:00 14:00 Temperature Heart Rate Heart Rate [ 79 80 Monitoring electrodes] Respiratory 14 92 H Rate Blood Pressure Blood Pressure 108/62 104/54 L [Right Brachial artery] O2 Saturation 92 15 L If not protocol : Oxygen Flow, liters/minute Oxygen O2 Source Room air I&O (Last 24 Hrs): Intake and Output Totals x24h 11/13/23 11/14/23 11/15/23 23:59 23:59 23:59 Intake Total 1101 1355 Output Total 0 935 Balance 1101 420 General: Alert, Oriented x3, Cooperative, No acute distress Neuro: Alert, CN 2-12 Grossly Intact, Oriented Times 3 Cardiovascular: Regular rate, Normal S1, Normal S2, No murmurs Respiratory: No respiratory distress, Breath sounds nml Abdomen: Normal bowel sounds, Soft, No tenderness, No hepatospenomegaly, No masses - Results Results: Laboratory Results WBC 12.2 x10^3/uL (4.8-10.8) H 11/15/23 05:00 RBC 3.73 10^6/uL (4.70-6.10) L 11/15/23 05:00 Hgb 12.5 g/dL (14.0-18.0) L 11/15/23 05:00 Hct 34.5 % (42.0-52.0) L 11/15/23 05:00 MCV 92.5 fL (80.0-94.0) 11/15/23 05:00 MCH 33.5 pg (27.0-31.0) H 11/15/23 05:00 MCHC 36.2 g/dL (32.0-36.0) H 11/15/23 05:00 RDW 11.5 % (12.0-15.0) L 11/15/23 05:00 Plt Count 161 10^3/uL (130-450) 11/15/23 05:00 MPV 9.4 fL (7.4-11.4) 11/15/23 05:00 Neut # (Auto) 11.0 10^3/uL (1.5-6.6) H 11/15/23 05:00 Lymph # (Auto) 0.4 10^3/uL (1.5-3.5) L 11/15/23 05:00 [place] # (Auto) 0.8 10^3/uL (0.0-1.0) 11/15/23 05:00 Eos # (Auto) 0.0 10^3/uL (0.0-0.7) 11/15/23 05:00 Baso # (Auto) 0.0 10^3/uL (0.0-0.1) 11/15/23 05:00 Absolute Nucleated RBC 0.00 x10^3/uL 11/15/23 05:00 Nucleated RBC % 0.0 /100WBC 11/15/23 05:00 VBG pH 7.446 (7.31-7.41) H 11/15/23 14:28 Ionized Calcium 1.07 mmol/L (1.15-1.33) L 11/15/23 14:28 Sodium 115 mmol/L (135-145) L* 11/15/23 11:26 Potassium 4.0 mmol/L (3.5-4.5) 11/15/23 14:28 Chloride 80 mmol/L (101-111) L* 11/15/23 05:00 Carbon Dioxide 29 mmol/L (21-32) 11/15/23 05:00 Anion Gap 6.0 (6-13) 11/15/23 05:00 BUN 16 mg/dL (6-20) 11/15/23 05:00 Creatinine 0.4 mg/dL (0.6-1.3) L 11/15/23 05:00 Estimated GFR (MDRD) 212 (>89) 11/15/23 05:00 Glucose 117 mg/dL (74-104) H 11/15/23 05:00 Calcium 8.4 mg/dL (8.5-10.3) L 11/15/23 05:00 Phosphorus 2.5 mg/dL (2.5-5.0) 11/15/23 05:00 Magnesium 2.1 mg/dL (1.7-2.3) 11/15/23 14:28 Total Bilirubin 1.1 mg/dL (0.2-1.0) H 11/14/23 18:35 AST 58 IU/L (10-42) H 11/14/23 18:35 ALT 56 IU/L (10-60) 11/14/23 18:35 Alkaline Phosphatase 60 IU/L (42-121) 11/14/23 18:35 Total Protein 7.1 g/dL (6.4-8.9) 11/14/23 18:35 Albumin 4.4 g/dL (3.2-5.5) 11/14/23 18:35 Globulin 2.7 g/dL (2.1-4.2) 11/14/23 18:35 Albumin/Globulin Ratio 1.6 (1.0-2.2) 11/14/23 18:35 Lipase < 10 U/L (11-82) L 11/14/23 18:35 Nasal Screen MRSA (PCR) NEGATIVE (NEGATIVE) 11/15/23 00:00 Ethyl Alcohol < 10.0 mg/dL 11/14/23 18:35 - Procedures Procedures: Procedures EXCISION OF TRANSVERSE COLON, ENDO, DIAGN (02/23/17)
[2023-11-15] MEDS: NICOTINE 14 MG PATCH TOP SCH (15:04)
[2023-11-15] MEDS: DESMOPRESSIN 4 MCG/ML AMP IVP SCH (15:29)
[2023-11-15] MEDS: SODIUM CHLORIDE FLUSH 0.9% 10 ML SYRINGE IVP PRN (15:30)
[2023-11-15] MEDS ORDERED: DESMOPRESSIN 2 MCG in SODIUM CHLORIDE 0.9% 50 ML IV SCH (16:00)
[2023-11-15] MEDS: THIAMINE 100 MG TABLET PO SCH (16:12)
[2023-11-15] MEDS: PRENATAL VITAMIN TABLET PO SCH (16:12)
[2023-11-15] MEDS: FORMOTEROL FUMARATE NEB 20 MCG/2 ML INH SCH (19:39)
[2023-11-15] MEDS: BUDESONIDE 0.5 MG/2 ML NEB INH SCH (19:39)
[2023-11-15 19:41] LABS: CALCIUM, IONIZED 1.08 mmol/L (1.15-1.33); VBG PH 7.51 (7.31-7.41)
[2023-11-15] MEDS: oxyCODONE 5 MG TABLET PO PRN (20:06)
[2023-11-15] MEDS ORDERED: FLUTICASONE PROPION INH SCH (21:00)
[2023-11-15] MEDS ORDERED: [UNRECOGNIZED DRUG - OTHER] INH SCH (21:00)
[2023-11-15] MEDS ORDERED: SALMETEROL INH SCH (21:00)
[2023-11-16] MEDS: GABAPENTIN 300 MG CAPSULE PO PRN (03:01)
[2023-11-16 04:25] LABS: BASOPHILS % (AUTO) 0.1 %; HCT - HEMATOCRIT 32.2 % (42.0-52.0); HGB - HEMOGLOBIN 10.8 g/dL (14.0-18.0); LYMPHOCYTES # (AUTO) 0.5 10^3/uL (1.5-3.5); LYMPHOCYTES % (AUTO) 5.3 %; MEAN CORPUSCULAR HEMOGLOBIN 31.6 pg (27.0-31.0); MEAN CORPUSCULAR HGB CONC 33.5 g/dL (32.0-36.0); MEAN CORPUSCULAR VOLUME 94.2 fL (80.0-94.0); MONOCYTES # (AUTO) 0.6 10^3/uL (0.0-1.0); MONOCYTES % (AUTO) 6.2 %; NEUTROPHILS # (AUTO) 8.2 10^3/uL (1.5-6.6); NEUTROPHILS % (AUTO) 88.1 %; PLT - PLATELET COUNT 155 10^3/uL (130-450); RED BLOOD COUNT 3.42 10^6/uL (4.70-6.10); RED CELL DISTRIBUTION WIDTH 11.7 % (12.0-15.0); WHITE BLOOD COUNT 9.3 x10^3/uL (4.8-10.8)
[2023-11-16 04:26] LABS: CALCIUM, IONIZED 1.04 mmol/L (1.15-1.33); VBG PH 7.471 (7.31-7.41)
[2023-11-16 04:50] LABS: MAGNESIUM 1.7 mg/dL (1.7-2.3); PHOSPHORUS 2.2 mg/dL (2.5-5.0)
[2023-11-16] MEDS: MAGNESIUM OXIDE 400 MG TABLET PO SCH (05:07)
[2023-11-16] MEDS: PANTOPRAZOLE 40 MG TABLET PO SCH (05:07)
[2023-11-16] MEDS: CALCIUM CARBONATE CHEW 500 MG TABLET PO SCH ×2 (05:07→21:41)
[2023-11-16 05:49] LABS: CALCIUM 8.1 mg/dL (8.5-10.3); CREATININE 0.4 mg/dL (0.6-1.3); POTASSIUM 3.5 mmol/L (3.5-4.5)
[2023-11-16] MEDS: NEUTRA-PHOS 250 MG TABLET PO SCH (07:51)
--- NOTE | 2023-11-16 09:17 | PROVIDER PROGRESS NOTE ---
Assessment/Plan - Problem List (1) Acute hyponatremia Assessment/Plan: Goal is to increase serum sodium by 4 to 6 mEq over the next 24 hours.Continue to monitor serum sodium every 4 hours. (3) Hypoxemia Assessment/Plan: --Likely exacerbated by aspiration pneumonia and pneumothorax. Continue on supplemental oxygen. (4) Acute pneumothorax Assessment/Plan: Right-sided chest tube placed 11/13. Chest tube was clamped today for approximately 4 hours with no evidence of recurrent pneumothorax or air leak. Chest tube has been removed by general surgery. (5) Rib fractures Qualifiers: Encounter type: initial encounter Fracture type: closed Laterality: right Qualified Code(s): S22.41XA - Multiple fractures of ribs, right side, initial encounter for closed fracture Assessment/Plan: Multiple rib fractures on the right side (7-12).Patient tolerating well. Continue to monitor. (6) Alcohol abuse Assessment/Plan: Endorses drinking 9 beers daily. Has never had withdrawals previous or withdrawal seizures. He does not recall the last time he was alcohol free. CIWA protocol discontinued. - Current Meds Current Meds: Current Medications Generic Name Dose Route Start Last Admin Trade Name Freq PRN Reason Stop Dose Admin Acetaminophen 650 mg 11/14/23 22:00 11/16/23 03:01 Acetaminophen 325 Mg Tablet PO 11/17/23 21:59 650 mg Q6H ESTEPHANIA Administration Albuterol/Ipratropium 3 ml 11/15/23 07:00 11/16/23 07:05 Ipratropium/Albuterol 3 Ml Neb INH 3 ml RTQID ESTEPHANIA Administration Budesonide 0.5 mg 11/15/23 19:00 11/16/23 07:05 Budesonide 0.5 Mg/2 Ml Neb INH 0.5 mg RTBID ESTEPHANIA Administration Calcium Carbonate/Glycine 1,250 mg 11/16/23 06:00 11/16/23 05:07 Calcium Carbonate Chew 500 Mg Tablet PO 11/16/23 10:01 1,250 mg Q4H ESTEPHANIA Administration Protocol Desmopressin Acetate 2 mcg 11/15/23 16:00 11/16/23 07:51 Desmopressin 4 Mcg/Ml Amp IVP 2 mcg Q8H ESTEPHANIA Administration Formoterol Fumarate 20 mcg 11/15/23 19:00 11/16/23 07:05 Formoterol Fumarate Neb 20 Mcg/2 Ml INH 20 mcg RTBID ESTEPHANIA Administration Gabapentin 300 mg 11/14/23 22:30 11/16/23 03:01 Gabapentin 300 Mg Capsule PO 300 mg Q8HR PRN Administration Moderate Pain (Level 5-7) Heparin Sodium (Porcine) 5,000 unit 11/15/23 09:00 11/16/23 07:51 Heparin 5,000 Unit/Ml Vial SUBQ 5,000 unit BID ESTEPHANIA Administration Hydromorphone HCl 0.5 mg 11/14/23 21:28 11/15/23 00:31 Hydromorphone 0.5 Mg/0.5 Ml Syringe IVP 0.5 mg Q4H PRN Administration Severe chest wall pain Ampicillin Sodium/Sulbactam 100 mls @ 200 mls/hr 11/15/23 12:00 11/16/23 05:06 Sodium 3 gm/ Sodium Chloride IV 11/22/23 11:59 200 mls/hr Q6HR ESTEPHANIA Administration Magnesium Oxide 400 mg 11/16/23 06:00 11/16/23 05:07 Magnesium Oxide 400 Mg Tablet PO 11/16/23 12:01 400 mg Q6H ESTEPHANIA Administration Protocol Multi-Ingredient Ointment 1 applic 11/14/23 23:44 11/14/23 23:50 Zinc Oxide 12% Oint 57 Gm Tube TOP 1 applic PRN PRN Administration Skin Care Nicotine 1 patch 11/15/23 15:00 11/16/23 07:51 Nicotine 14 Mg Patch TOP 1 patch DAILY ESTEPHANIA Administration Oxycodone HCl 5 mg 11/14/23 21:25 11/16/23 03:01 Oxycodone 5 Mg Tablet PO 5 mg Q4H PRN Administration Chest Pain Pantoprazole Sodium 40 mg 11/16/23 05:00 11/16/23 05:11 Pantoprazole 40 Mg Tablet PO Not Given QDAC [facility] Multivit/Folic Acid/Iron 1 tab 11/15/23 17:00 11/16/23 07:51 Vitamin Tablet PO 1 tab DAILYWM ESTEPHANIA Administration Sodium Chloride 10 ml 11/15/23 01:00 11/16/23 07:51 Sodium Chloride Flush 0.9% 10 Ml Syringe IVP 10 ml 0100,0900,1700 ESTEPHANIA Administration Sodium Chloride 10 ml 11/14/23 22:31 11/15/23 15:30 Sodium Chloride Flush 0.9% 10 Ml Syringe IVP 10 ml PRN PRN Administration NEEDED PER PROVIDER ORDERS Sodium Phosphate 250 mg 11/16/23 08:00 11/16/23 07:51 Neutra-Phos 250 Mg Tablet PO 11/16/23 10:01 250 mg Q2H ESTEPHANIA Administration Protocol Thiamine HCl 100 mg 11/15/23 17:00 11/16/23 07:52 Thiamine 100 Mg Tablet PO 100 mg DAILY ESTEPHANIA Administration - Lab Result Fish Bone Diagrams: 11/16/23 04:16 11/16/23 17:02 - Additional Planning My Orders: My Active Orders 11/16/23 09:07 Chest Tube Care [RC] Q6HR 11/16/23 09:10 SODIUM [CHEM] Q4H 11/16/23 09:13 Chest 1V [XR] Routine 11/16/23 13:00 SODIUM [CHEM] Q4H 11/16/23 17:00 SODIUM [CHEM] Q4H 11/16/23 21:00 SODIUM [CHEM] Q4H 11/17/23 01:00 SODIUM [CHEM] Q4H Subjective - Subjective Patient Reports: Other (Alert. Denies chest pain, shortness of breath and abdominal pain. No other complaints at this time.) Objective Vital Signs: Vital Signs - 24 hr 11/15/23 11/15/23 11/15/23 10:00 11:00 11:15 Temperature Heart Rate 74 Heart Rate [ 78 89 Monitoring electrodes] Respiratory 16 16 18 Rate Blood Pressure 112/77 136/71 H [Right Brachial artery] O2 Saturation 92 94 If not protocol 1 1 : Oxygen Flow, liters/minute 11/15/23 11/15/23 11/15/23 12:00 13:00 14:00 Temperature 36.9 C Heart Rate Heart Rate [ 82 79 80 Monitoring electrodes] Respiratory 16 14 92 H Rate Blood Pressure 111/79 108/62 104/54 L [Right Brachial artery] O2 Saturation 92 92 15 L If not protocol : Oxygen Flow, liters/minute 11/15/23 11/15/23 11/15/23 15:00 16:00 17:00 Temperature 37.8 C Heart Rate Heart Rate [ 76 86 78 Monitoring electrodes] Respiratory 17 16 14 Rate Blood Pressure 102/56 L 111/62 118/57 L [Right Brachial artery] O2 Saturation 95 94 94 If not protocol : Oxygen Flow, liters/minute 11/15/23 11/15/23 11/15/23 18:00 19:00 19:40 Temperature Heart Rate 78 Heart Rate [ 81 76 Monitoring electrodes] Respiratory 18 16 16 Rate Blood Pressure 112/65 120/58 L [Right Brachial artery] O2 Saturation 91 L 94 If not protocol : Oxygen Flow, liters/minute 11/15/23 11/15/23 11/15/23 20:00 20:15 21:00 Temperature 37.2 C Heart Rate Heart Rate [ 84 82 Monitoring electrodes] Respiratory 16 14 Rate Blood Pressure 133/71 H 109/62 [Right Brachial artery] O2 Saturation 93 92 If not protocol : Oxygen Flow, liters/minute 11/15/23 11/15/23 11/16/23 22:00 23:00 00:00 Temperature Heart Rate Heart Rate [ 75 71 70 Monitoring electrodes] Respiratory 12 12 12 Rate Blood Pressure 112/56 L 124/63 115/72 [Right Brachial artery] O2 Saturation 94 93 94 If not protocol : Oxygen Flow, liters/minute 11/16/23 11/16/23 11/16/23 01:00 02:00 03:00 Temperature 36.9 C Heart Rate Heart Rate [ 78 81 74 Monitoring electrodes] Respiratory 15 13 12 Rate Blood Pressure 129/69 139/74 H 126/87 H [Right Brachial artery] O2 Saturation 94 93 94 If not protocol : Oxygen Flow, liters/minute 11/16/23 11/16/23 11/16/23 04:00 05:00 06:00 Temperature 36.7 C Heart Rate Heart Rate [ 66 69 69 Monitoring electrodes] Respiratory 11 L 16 11 L Rate Blood Pressure 115/64 111/65 105/65 [Right Brachial artery] O2 Saturation 93 93 93 If not protocol : Oxygen Flow, liters/minute 11/16/23 11/16/23 11/16/23 07:00 07:07 08:00 Temperature 36.7 C Heart Rate 72 Heart Rate [ 66 90 Monitoring electrodes] Respiratory 14 14 20 Rate Blood Pressure 105/63 122/68 [Right Brachial artery] O2 Saturation 93 94 If not protocol : Oxygen Flow, liters/minute 11/16/23 09:00 Temperature Heart Rate Heart Rate [ 83 Monitoring electrodes] Respiratory 18 Rate Blood Pressure 105/58 L [Right Brachial artery] O2 Saturation 93 If not protocol : Oxygen Flow, liters/minute Oxygen O2 Source Room air I&O (Last 24 Hrs): Intake and Output Totals x24h 11/14/23 11/15/23 11/16/23 23:59 23:59 23:59 Intake Total 1101 2315 690 Output Total 0 1382 375 Balance 1101 933 315 General: Alert, Oriented x3, No acute distress HEENT: Atraumatic Neck: No JVD, No thyromegaly Neuro: Alert, Non Focal Cardiovascular: Other (Positive S1-S2 no extra heart sounds.) Respiratory: Other (Good air exchange in all lung garnett no wheezing no crackles.) Abdomen: Other (Soft nontender nondistended positive bowel sounds.) Extremities: No cyanosis, No edema Skin: No rashes - Results Results: Laboratory Results WBC 9.3 x10^3/uL (4.8-10.8) 11/16/23 04:16 RBC 3.42 10^6/uL (4.70-6.10) L 11/16/23 04:16 Hgb 10.8 g/dL (14.0-18.0) L 11/16/23 04:16 Hct 32.2 % (42.0-52.0) L 11/16/23 04:16 MCV 94.2 fL (80.0-94.0) H 11/16/23 04:16 MCH 31.6 pg (27.0-31.0) H 11/16/23 04:16 MCHC 33.5 g/dL (32.0-36.0) 11/16/23 04:16 RDW 11.7 % (12.0-15.0) L 11/16/23 04:16 Plt Count 155 10^3/uL (130-450) 11/16/23 04:16 MPV 9.0 fL (7.4-11.4) 11/16/23 04:16 Neut # (Auto) 8.2 10^3/uL (1.5-6.6) H 11/16/23 04:16 Lymph # (Auto) 0.5 10^3/uL (1.5-3.5) L 11/16/23 04:16 Clark # (Auto) 0.6 10^3/uL (0.0-1.0) 11/16/23 04:16 Eos # (Auto) 0.0 10^3/uL (0.0-0.7) 11/16/23 04:16 Baso # (Auto) 0.0 10^3/uL (0.0-0.1) 11/16/23 04:16 Absolute Nucleated RBC 0.00 x10^3/uL 11/16/23 04:16 Nucleated RBC % 0.0 /100WBC 11/16/23 04:16 VBG pH 7.471 (7.31-7.41) H 11/16/23 04:16 Ionized Calcium 1.04 mmol/L (1.15-1.33) L 11/16/23 04:16 Sodium 119 mmol/L (135-145) L* 11/16/23 04:16 Potassium 3.5 mmol/L (3.5-4.5) 11/16/23 04:16 Chloride 86 mmol/L (101-111) L 11/16/23 04:16 Carbon Dioxide 30 mmol/L (21-32) 11/16/23 04:16 Anion Gap 3.0 (6-13) L 11/16/23 04:16 BUN 12 mg/dL (6-20) 11/16/23 04:16 Creatinine 0.4 mg/dL (0.6-1.3) L 11/16/23 04:16 Estimated GFR (MDRD) 212 (>89) 11/16/23 04:16 Glucose 121 mg/dL (74-104) H 11/16/23 04:16 Calcium 8.1 mg/dL (8.5-10.3) L 11/16/23 04:16 Phosphorus 2.2 mg/dL (2.5-5.0) L 11/16/23 04:16 Magnesium 1.7 mg/dL (1.7-2.3) 11/16/23 04:16 Total Bilirubin 1.1 mg/dL (0.2-1.0) H 11/14/23 18:35 AST 58 IU/L (10-42) H 11/14/23 18:35 ALT 56 IU/L (10-60) 11/14/23 18:35 Alkaline Phosphatase 60 IU/L (42-121) 11/14/23 18:35 Total Protein 7.1 g/dL (6.4-8.9) 11/14/23 18:35 Albumin 4.4 g/dL (3.2-5.5) 11/14/23 18:35 Globulin 2.7 g/dL (2.1-4.2) 11/14/23 18:35 Albumin/Globulin Ratio 1.6 (1.0-2.2) 11/14/23 18:35 Lipase < 10 U/L (11-82) L 11/14/23 18:35 Nasal Screen MRSA (PCR) NEGATIVE (NEGATIVE) 11/15/23 00:00 Ethyl Alcohol < 10.0 mg/dL 11/14/23 18:35 - Procedures Procedures: Procedures EXCISION OF TRANSVERSE COLON, ENDO, DIAGN (02/23/17)
[2023-11-16] MEDS ORDERED: MAGNESIUM OXIDE 400 MG TABLET PO ONE (10:30)
--- NOTE | 2023-11-16 11:21 | XRAY Report ---
PROCEDURE: Chest 1V INDICATIONS: Right pneumothrax now with clamped chest tube TECHNIQUE: One view of the chest was acquired. COMPARISON: 11/15/2023. FINDINGS: Surgical changes and devices: Right chest tube is unchanged in position.. Lungs and pleura: No definite pneumothorax visualized on today's evaluation. No new dense consolidat ions. Patchy bibasilar opacities redemonstrated likely representing atelectasis. No substantial pleur al effusion identified. Mediastinum: Mediastinal contours appear normal. Heart size is stable. Bones and chest wall: No suspicious bony lesions. Right chest wall subcutaneous soft tissue emphysem a unchanged. Multiple acute, displaced lateral right-sided rib fractures redemonstrated. Overlying s oft tissues appear unremarkable. IMPRESSION: Right chest tube in place. No pneumothorax visualized on this exam. Persistent patchy bibasilar opacities favored to represent atelectasis. No new dense consolidations i dentified. Multiple acute, mildly displaced lateral right sided rib fractures redemonstrated. Associated subcuta neous soft tissue emphysema right chest wall. Reviewed by: Elmo Zuniga MD on 11/16/2023 11:20 AM PDT Approved by: Elmo Zuniga MD on 11/16/2023 11:20 AM PDT Station ID: [id number]
--- NOTE | 2023-11-16 16:01 | XRAY Report ---
PROCEDURE: Chest 1V INDICATIONS: Right pneumothorax with chest tube clamped for 4h TECHNIQUE: One view of the chest was acquired. COMPARISON: Radiographs from 11/16/2023 and 11/15/2023 FINDINGS: Surgical changes and devices: Right chest tube remains in place.. Lungs and pleura: No definite pneumothorax visualized. Persistent patchy bibasilar opacities are als o unchanged. No new focal consolidations. No substantial pleural effusion seen. Mediastinum: Mediastinal contours appear normal. Heart size is stable. Bones and chest wall: No suspicious bony lesions. Stable appearance of right chest wall subcutaneou s soft tissue emphysema. Multiple acute, mildly displaced lateral right rib fractures as before. Over lying soft tissues appear unremarkable. IMPRESSION: Right chest tube is stable in positioning. Stable appearance of right chest wall subcutaneous soft ti ssue emphysema. No pneumothorax visualized. Persistent patchy right greater than left bibasilar opacities favored to represent atelectasis. Reviewed by: Elmo Zuniga MD on 11/16/2023 4:00 PM PDT Approved by: Elmo Zuniga MD on 11/16/2023 4:00 PM PDT Station ID: [id number]
[2023-11-16 17:07] LABS: CALCIUM, IONIZED 1.02 mmol/L (1.15-1.33); VBG PH 7.478 (7.31-7.41)
[2023-11-16 17:22] LABS: MAGNESIUM 1.6 mg/dL (1.7-2.3); POTASSIUM 3.8 mmol/L (3.5-4.5)
[2023-11-16] MEDS: POTASSIUM CHLORIDE 20 MEQ TABLET PO ONE ×2 (17:42→21:41)
[2023-11-16] MEDS: CALCIUM GLUC 1,000MG/50ML-NACL 1,000 MG/50 ML BAG IV ONE (17:44)
--- NOTE | 2023-11-16 17:47 | PROVIDER PROGRESS NOTE ---
Subjective - Subjective Pt reports feeling: Improved (alert today. no complaints. denies breathing problem) Objective - Vital Signs/Intake & Output Vital Signs: Vital Signs x48h Temp Pulse Pulse Resp BP Pulse Ox 11/16/23 16:06 37.4 C 87 15 128/63 94 11/16/23 15:03 84 16 11/16/23 15:00 87 15 118/68 94 11/16/23 14:00 89 18 117/71 93 11/16/23 13:00 86 16 111/60 94 11/16/23 12:00 37.1 C 93 18 116/60 92 11/16/23 11:08 76 16 11/16/23 11:00 74 13 114/63 95 11/16/23 10:00 77 95 H 103/62 12 L Intake & Output: Intake & Output 11/13/23 11/14/23 11/15/23 11/16/23 23:59 23:59 23:59 23:59 Intake Total 1101 2315 1210 Output Total 0 1382 1144 Balance 1101 933 66 - Objective General Appearance: positive: Alert Eyes Bilateral: positive: PERRL, EOMI Respiratory: positive: No respiratory distress, Other (minimal chest tube output and no air leak) - Lab Results Fish Bones: 11/16/23 04:16 11/16/23 17:02 Other Labs: Lab Results x24hrs 11/16/23 11/16/23 11/16/23 Range/Units 17:02 17:02 17:02 WBC (4.8-10.8) x10^3/uL RBC (4.70-6.10) 10^6/uL Hgb (14.0-18.0) g/dL Hct (42.0-52.0) % MCV (80.0-94.0) fL MCH (27.0-31.0) pg MCHC (32.0-36.0) g/dL RDW (12.0-15.0) % Plt Count (130-450) 10^3/uL MPV (7.4-11.4) fL Neut # (Auto) (1.5-6.6) 10^3/uL Lymph # (Auto) (1.5-3.5) 10^3/uL Wright # (Auto) (0.0-1.0) 10^3/uL Eos # (Auto) (0.0-0.7) 10^3/uL Baso # (Auto) (0.0-0.1) 10^3/uL Absolute Nucleated RBC x10^3/uL Nucleated RBC % /100WBC VBG pH 7.478 H (7.31-7.41) Ionized Calcium 1.02 L (1.15-1.33) mmol/L Sodium 123 L (135-145) mmol/L Potassium 3.8 (3.5-4.5) mmol/L Chloride (101-111) mmol/L Carbon Dioxide (21-32) mmol/L Anion Gap (6-13) BUN (6-20) mg/dL Creatinine (0.6-1.3) mg/dL Estimated GFR (MDRD) (>89) Glucose (74-104) mg/dL Calcium (8.5-10.3) mg/dL Phosphorus (2.5-5.0) mg/dL Magnesium 1.6 L (1.7-2.3) mg/dL 11/16/23 11/16/23 11/16/23 Range/Units 12:51 09:10 04:16 WBC (4.8-10.8) x10^3/uL RBC (4.70-6.10) 10^6/uL Hgb (14.0-18.0) g/dL Hct (42.0-52.0) % MCV (80.0-94.0) fL MCH (27.0-31.0) pg MCHC (32.0-36.0) g/dL RDW (12.0-15.0) % Plt Count (130-450) 10^3/uL MPV (7.4-11.4) fL Neut # (Auto) (1.5-6.6) 10^3/uL Lymph # (Auto) (1.5-3.5) 10^3/uL Wright # (Auto) (0.0-1.0) 10^3/uL Eos # (Auto) (0.0-0.7) 10^3/uL Baso # (Auto) (0.0-0.1) 10^3/uL Absolute Nucleated RBC x10^3/uL Nucleated RBC % /100WBC VBG pH 7.471 H (7.31-7.41) Ionized Calcium 1.04 L (1.15-1.33) mmol/L Sodium 121 L 119 L* (135-145) mmol/L Potassium (3.5-4.5) mmol/L Chloride (101-111) mmol/L Carbon Dioxide (21-32) mmol/L Anion Gap (6-13) BUN (6-20) mg/dL Creatinine (0.6-1.3) mg/dL Estimated GFR (MDRD) (>89) Glucose (74-104) mg/dL Calcium (8.5-10.3) mg/dL Phosphorus (2.5-5.0) mg/dL Magnesium (1.7-2.3) mg/dL 11/16/23 11/16/23 11/16/23 Range/Units 04:16 04:16 04:16 WBC 9.3 (4.8-10.8) x10^3/uL RBC 3.42 L (4.70-6.10) 10^6/uL Hgb 10.8 L (14.0-18.0) g/dL Hct 32.2 L (42.0-52.0) % MCV 94.2 H (80.0-94.0) fL MCH 31.6 H (27.0-31.0) pg MCHC 33.5 (32.0-36.0) g/dL RDW 11.7 L (12.0-15.0) % Plt Count 155 (130-450) 10^3/uL MPV 9.0 (7.4-11.4) fL Neut # (Auto) 8.2 H (1.5-6.6) 10^3/uL Lymph # (Auto) 0.5 L (1.5-3.5) 10^3/uL Wright # (Auto) 0.6 (0.0-1.0) 10^3/uL Eos # (Auto) 0.0 (0.0-0.7) 10^3/uL Baso # (Auto) 0.0 (0.0-0.1) 10^3/uL Absolute Nucleated RBC 0.00 x10^3/uL Nucleated RBC % 0.0 /100WBC VBG pH (7.31-7.41) Ionized Calcium (1.15-1.33) mmol/L Sodium 119 L* (135-145) mmol/L Potassium 3.5 (3.5-4.5) mmol/L Chloride 86 L (101-111) mmol/L Carbon Dioxide 30 (21-32) mmol/L Anion Gap 3.0 L (6-13) BUN 12 (6-20) mg/dL Creatinine 0.4 L (0.6-1.3) mg/dL Estimated GFR (MDRD) 212 (>89) Glucose 121 H (74-104) mg/dL Calcium 8.1 L (8.5-10.3) mg/dL Phosphorus 2.2 L (2.5-5.0) mg/dL Magnesium 1.7 (1.7-2.3) mg/dL 11/15/23 11/15/23 Range/Units 19:33 19:33 WBC (4.8-10.8) x10^3/uL RBC (4.70-6.10) 10^6/uL Hgb (14.0-18.0) g/dL Hct (42.0-52.0) % MCV (80.0-94.0) fL MCH (27.0-31.0) pg MCHC (32.0-36.0) g/dL RDW (12.0-15.0) % Plt Count (130-450) 10^3/uL MPV (7.4-11.4) fL Neut # (Auto) (1.5-6.6) 10^3/uL Lymph # (Auto) (1.5-3.5) 10^3/uL Wright # (Auto) (0.0-1.0) 10^3/uL Eos # (Auto) (0.0-0.7) 10^3/uL Baso # (Auto) (0.0-0.1) 10^3/uL Absolute Nucleated RBC x10^3/uL Nucleated RBC % /100WBC VBG pH 7.510 H (7.31-7.41) Ionized Calcium 1.08 L (1.15-1.33) mmol/L Sodium 118 L* (135-145) mmol/L Potassium (3.5-4.5) mmol/L Chloride (101-111) mmol/L Carbon Dioxide (21-32) mmol/L Anion Gap (6-13) BUN (6-20) mg/dL Creatinine (0.6-1.3) mg/dL Estimated GFR (MDRD) (>89) Glucose (74-104) mg/dL Calcium (8.5-10.3) mg/dL Phosphorus (2.5-5.0) mg/dL Magnesium (1.7-2.3) mg/dL Assessment/Plan - Problem List (1) Acute pneumothorax Impression: chest tube removed and dressing applied. well tolerating recommend keep this current dressing on for 3 days and then change as needed
[2023-11-16] MEDS: MAGNESIUM OXIDE 400 MG TABLET PO ONE ×2 (17:53→21:41)
[2023-11-16 21:24] LABS: CALCIUM, IONIZED 1.07 mmol/L (1.15-1.33); VBG PH 7.465 (7.31-7.41)
[2023-11-16 21:30] LABS: MAGNESIUM 1.6 mg/dL (1.7-2.3); POTASSIUM 3.8 mmol/L (3.5-4.5)
[2023-11-17 04:51] LABS: CALCIUM 8.2 mg/dL (8.5-10.3); CREATININE 0.5 mg/dL (0.6-1.3); MAGNESIUM 1.6 mg/dL (1.7-2.3); PHOSPHORUS 2.3 mg/dL (2.5-5.0)
[2023-11-17] MEDS: NEUTRA-PHOS 250 MG TABLET PO SCH ×2 (05:55→13:12)
[2023-11-17] MEDS: MAGNESIUM OXIDE 400 MG TABLET PO ONE (05:55)
--- NOTE | 2023-11-17 09:17 | PROVIDER PROGRESS NOTE ---
Assessment/Plan - Problem List (1) Acute hyponatremia Assessment/Plan: Serum sodium has increased from 119 to 124 over the last 24 hours. Goal is to increase serum sodium by 4 to 6 mEq over the next 24 hours. (2) Hypoxemia Assessment/Plan: --Likely exacerbated by aspiration pneumonia and pneumothorax. Continue on supplemental oxygen. Antibiotics have been discontinued because leukocytosis has resolved and he remained afebrile. (3) Acute pneumothorax Assessment/Plan: Right-sided chest tube placed 11/13. Chest tube removed 11/16/2023. No complications (4) Rib fractures Qualifiers: Encounter type: initial encounter Fracture type: closed Laterality: right Qualified Code(s): S22.41XA - Multiple fractures of ribs, right side, initial encounter for closed fracture Assessment/Plan: Multiple rib fractures on the right side (-).Patient tolerating well. Co ntinue to monitor. (5) Alcohol abuse Assessment/Plan: Endorses drinking 9 beers daily. Has never had withdrawals previous or withdrawal seizures. He does not recall the last time he was alcohol free. CIWA protocol discontinued. (6) Dispostion Assessment/Plan: Mr. Vaz continues to require in-hospital care due to his hyponatremia. Current serum sodium is 124. Anticipate patient will be able to discharge once his sodium is greater than 130. - Current Meds Current Meds: Current Medications Generic Name Dose Route Start Last Admin Trade Name Freq PRN Reason Stop Dose Admin Acetaminophen 650 mg 11/14/23 22:00 11/17/23 04:17 Acetaminophen 325 Mg Tablet PO 11/17/23 21:59 650 mg Q6H ESTEPHANIA Administration Albuterol/Ipratropium 3 ml 11/15/23 07:00 11/17/23 07:23 Ipratropium/Albuterol 3 Ml Neb INH 3 ml RTQID ESTEPHANIA Administration Budesonide 0.5 mg 11/15/23 19:00 11/17/23 07:23 Budesonide 0.5 Mg/2 Ml Neb INH 0.5 mg RTBID ESTEPHANIA Administration Formoterol Fumarate 20 mcg 11/15/23 19:00 11/17/23 07:23 Formoterol Fumarate Neb 20 Mcg/2 Ml INH 20 mcg RTBID ESTEPHANIA Administration Gabapentin 300 mg 11/14/23 22:30 11/16/23 16:50 Gabapentin 300 Mg Capsule PO 300 mg Q8HR PRN Administration Moderate Pain (Level 5-7) Heparin Sodium (Porcine) 5,000 unit 11/15/23 09:00 11/17/23 08:15 Heparin 5,000 Unit/Ml Vial SUBQ 5,000 unit BID ESTEPHANIA Administration Ampicillin Sodium/Sulbactam 100 mls @ 200 mls/hr 11/15/23 12:00 11/17/23 05:56 Sodium 3 gm/ Sodium Chloride IV 11/22/23 11:59 200 mls/hr Q6HR ESTEPHANIA Administration Multi-Ingredient Ointment 1 applic 11/14/23 23:44 11/14/23 23:50 Zinc Oxide 12% Oint 57 Gm Tube TOP 1 applic PRN PRN Administration Skin Care Nicotine 1 patch 11/15/23 15:00 11/17/23 08:15 Nicotine 14 Mg Patch TOP 1 patch DAILY ESTEPHANIA Administration Oxycodone HCl 5 mg 11/14/23 21:25 11/16/23 03:01 Oxycodone 5 Mg Tablet PO 5 mg Q4H PRN Administration Chest Pain Pantoprazole Sodium 40 mg 11/16/23 05:00 11/17/23 06:21 Pantoprazole 40 Mg Tablet PO 40 mg QDAC ESTEPHANIA Administration Multivit/Folic Acid/Iron 1 tab 11/15/23 17:00 11/17/23 08:14 Vitamin Tablet PO 1 tab DAILYWM ESTEPHANIA Administration Sodium Chloride 10 ml 11/15/23 01:00 11/17/23 08:18 Sodium Chloride Flush 0.9% 10 Ml Syringe IVP 10 ml 0100,0900,1700 ESTEPHANIA Administration Sodium Chloride 10 ml 11/14/23 22:31 11/16/23 21:42 Sodium Chloride Flush 0.9% 10 Ml Syringe IVP 10 ml PRN PRN Administration NEEDED PER PROVIDER ORDERS Thiamine HCl 100 mg 11/15/23 17:00 11/17/23 08:15 Thiamine 100 Mg Tablet PO 100 mg DAILY ESTEPHANIA Administration - Lab Result Fish Bone Diagrams: 11/16/23 04:16 11/17/23 04:26 - Additional Planning My Orders: My Active Orders 11/17/23 Lunch Regular Diet [DIET] Subjective - Subjective Patient Reports: Other (Alert. Denies shortness of breath and abdominal pain. Continues to complain of chest pain related to his rib fractures.) Objective Vital Signs: Vital Signs - 24 hr 11/16/23 11/16/23 11/16/23 10:00 11:00 11:08 Temperature Heart Rate 76 Heart Rate [ 77 74 Monitoring electrodes] Respiratory 95 H 13 16 Rate Blood Pressure 103/62 114/63 [Right Brachial artery] O2 Saturation 12 L 95 11/16/23 11/16/23 11/16/23 12:00 13:00 14:00 Temperature 37.1 C Heart Rate Heart Rate [ 93 86 89 Monitoring electrodes] Respiratory 18 16 18 Rate Blood Pressure 116/60 111/60 117/71 [Right Brachial artery] O2 Saturation 92 94 93 11/16/23 11/16/23 11/16/23 15:00 15:03 16:06 Temperature 37.4 C Heart Rate 84 Heart Rate [ 87 87 Monitoring electrodes] Respiratory 15 16 15 Rate Blood Pressure 118/68 128/63 [Right Brachial artery] O2 Saturation 94 94 11/16/23 11/16/23 11/16/23 17:00 18:00 19:00 Temperature Heart Rate Heart Rate [ 97 86 85 Monitoring electrodes] Respiratory 18 15 14 Rate Blood Pressure 134/77 H 121/48 L 132/70 H [Right Brachial artery] O2 Saturation 94 96 96 11/16/23 11/16/23 11/16/23 19:06 20:00 21:00 Temperature 37.1 C Heart Rate 81 Heart Rate [ 83 78 Monitoring electrodes] Respiratory 20 19 14 Rate Blood Pressure 124/70 119/63 [Right Brachial artery] O2 Saturation 95 94 11/16/23 11/16/23 11/17/23 22:00 23:00 00:00 Temperature 37.5 C Heart Rate Heart Rate [ 83 77 84 Monitoring electrodes] Respiratory 16 22 20 Rate Blood Pressure 135/71 H 126/64 146/80 H [Right Brachial artery] O2 Saturation 95 95 95 11/17/23 11/17/23 11/17/23 01:00 02:00 03:00 Temperature Heart Rate Heart Rate [ 77 77 79 Monitoring electrodes] Respiratory 15 21 22 Rate Blood Pressure 129/75 147/76 H 150/76 H [Right Brachial artery] O2 Saturation 94 95 94 11/17/23 11/17/23 11/17/23 04:00 05:00 06:00 Temperature 36.8 C Heart Rate Heart Rate [ 76 78 86 Monitoring electrodes] Respiratory 16 23 18 Rate Blood Pressure 140/87 H 149/72 H 149/91 H [Right Brachial artery] O2 Saturation 94 94 95 11/17/23 11/17/23 11/17/23 07:00 07:24 08:00 Temperature 99.1 C H Heart Rate 85 Heart Rate [ 72 97 Monitoring electrodes] Respiratory 13 20 18 Rate Blood Pressure 145/77 H 137/78 H [Right Brachial artery] O2 Saturation 94 94 11/17/23 09:00 Temperature Heart Rate Heart Rate [ 92 Monitoring electrodes] Respiratory 18 Rate Blood Pressure 113/64 [Right Brachial artery] O2 Saturation 96 Oxygen O2 Source Room air I&O (Last 24 Hrs): Intake and Output Totals x24h 11/15/23 11/16/23 11/17/23 23:59 23:59 23:59 Intake Total 2315 1360 1000 Output Total 1382 1564 2000 Balance 933 -204 -1000 General: Alert, Oriented x3 Neck: Supple, No JVD Neuro: Non Focal Cardiovascular: Other (Positive S1-S2 no extra heart sounds.) Respiratory: Other (Good air exchange in all lung garnett no wheezing no crackles.) Abdomen: Other (Soft nontender nondistended positive bowel sounds) Extremities: No cyanosis, No edema Skin: No rashes - Results Results: Laboratory Results WBC 9.3 x10^3/uL (4.8-10.8) 11/16/23 04:16 RBC 3.42 10^6/uL (4.70-6.10) L 11/16/23 04:16 Hgb 10.8 g/dL (14.0-18.0) L 11/16/23 04:16 Hct 32.2 % (42.0-52.0) L 11/16/23 04:16 MCV 94.2 fL (80.0-94.0) H 11/16/23 04:16 MCH 31.6 pg (27.0-31.0) H 11/16/23 04:16 MCHC 33.5 g/dL (32.0-36.0) 11/16/23 04:16 RDW 11.7 % (12.0-15.0) L 11/16/23 04:16 Plt Count 155 10^3/uL (130-450) 11/16/23 04:16 MPV 9.0 fL (7.4-11.4) 11/16/23 04:16 Neut # (Auto) 8.2 10^3/uL (1.5-6.6) H 11/16/23 04:16 Lymph # (Auto) 0.5 10^3/uL (1.5-3.5) L 11/16/23 04:16 [place] # (Auto) 0.6 10^3/uL (0.0-1.0) 11/16/23 04:16 Eos # (Auto) 0.0 10^3/uL (0.0-0.7) 11/16/23 04:16 Baso # (Auto) 0.0 10^3/uL (0.0-0.1) 11/16/23 04:16 Absolute Nucleated RBC 0.00 x10^3/uL 11/16/23 04:16 Nucleated RBC % 0.0 /100WBC 11/16/23 04:16 VBG pH 7.465 (7.31-7.41) H 11/16/23 21:07 Ionized Calcium 1.07 mmol/L (1.15-1.33) L 11/16/23 21:07 Sodium 124 mmol/L (135-145) L 11/17/23 04:26 Potassium 4.0 mmol/L (3.5-4.5) 11/17/23 04:26 Chloride 90 mmol/L (101-111) L 11/17/23 04:26 Carbon Dioxide 30 mmol/L (21-32) 11/17/23 04:26 Anion Gap 4.0 (6-13) L 11/17/23 04:26 BUN 9 mg/dL (6-20) 11/17/23 04:26 Creatinine 0.5 mg/dL (0.6-1.3) L 11/17/23 04:26 Estimated GFR (MDRD) 164 (>89) 11/17/23 04:26 Glucose 106 mg/dL (74-104) H 11/17/23 04:26 Calcium 8.2 mg/dL (8.5-10.3) L 11/17/23 04:26 Phosphorus 2.3 mg/dL (2.5-5.0) L 11/17/23 04:26 Magnesium 1.6 mg/dL (1.7-2.3) L 11/17/23 04:26 Total Bilirubin 1.1 mg/dL (0.2-1.0) H 11/14/23 18:35 AST 58 IU/L (10-42) H 11/14/23 18:35 ALT 56 IU/L (10-60) 11/14/23 18:35 Alkaline Phosphatase 60 IU/L (42-121) 11/14/23 18:35 Total Protein 7.1 g/dL (6.4-8.9) 11/14/23 18:35 Albumin 4.4 g/dL (3.2-5.5) 11/14/23 18:35 Globulin 2.7 g/dL (2.1-4.2) 11/14/23 18:35 Albumin/Globulin Ratio 1.6 (1.0-2.2) 11/14/23 18:35 Lipase < 10 U/L (11-82) L 11/14/23 18:35 Nasal Screen MRSA (PCR) NEGATIVE (NEGATIVE) 11/15/23 00:00 Ethyl Alcohol < 10.0 mg/dL 11/14/23 18:35 - Procedures Procedures: Procedures EXCISION OF TRANSVERSE COLON, ENDO, DIAGN (02/23/17)
[2023-11-17] MEDS: SODIUM CHLORIDE 1 GM TABLET PO SCH ×2 (10:12→21:22)
[2023-11-17] MEDS: MAGNESIUM OXIDE 400 MG TABLET PO SCH (10:12)
--- NOTE | 2023-11-17 15:50 | XRAY Report ---
PROCEDURE: Chest 1V INDICATIONS: F/u after chest tube removal yesterday. TECHNIQUE: One view of the chest was acquired. COMPARISON: 11/16/2023 FINDINGS: Surgical changes and devices: None. Lungs and pleura: Bibasilar pleural effusions with compressive atelectasis and/or infiltrate. No pne umothorax Mediastinum: Mediastinal contours appear normal. Heart size is normal. Bones and chest wall: No suspicious bony lesions. Overlying soft tissues appear unremarkable. IMPRESSION: No pneumothorax status post right-sided chest tube removal. Small pleural effusions with bibasilar at electasis and or infiltrate Reviewed by: Jason Winter MD on 11/17/2023 2:49 PM [facility] Approved by: Jason Winter MD on 11/17/2023 2:49 PM [facility] Station ID: [id number]
[2023-11-18 04:40] LABS: MAGNESIUM 1.7 mg/dL (1.7-2.3)
[2023-11-18 04:45] LABS: CALCIUM 8.5 mg/dL (8.5-10.3); CREATININE 0.5 mg/dL (0.6-1.3)
[2023-11-18] MEDS: SODIUM CHLORIDE 1 GM TABLET PO SCH (08:35)
--- NOTE | 2023-11-18 12:35 | PROVIDER PROGRESS NOTE ---
Assessment/Plan - Problem List (1) Acute hyponatremia Assessment/Plan: Serum sodium has increased from 124 to 129 over the last 24 hours. Etiology of hyponatremia not clear but most likely related to beer consumption. Plan: Salt tablet 1 gram with each meal. (2) Hypoxemia Assessment/Plan: Likely exacerbated by aspiration pneumonia and pneumothorax. Oxygen discontinued. Antibiotics have been discontinued because leukocytosis has resolved and he remained afebrile. (3) Acute pneumothorax Assessment/Plan: Right-sided chest tube placed 11/13. Chest tube removed 11/16/2023. No complications (4) Rib fractures Qualifiers: Encounter type: initial encounter Fracture type: closed Laterality: right Qualified Code(s): S22.41XA - Multiple fractures of ribs, right side, initial encounter for closed fracture Assessment/Plan: Multiple rib fractures on the right side (7-12).Patient tolerating well. Continue to monitor. (5) Alcohol abuse Assessment/Plan: Endorses drinking 9 beers daily. Has never had withdrawals previous or withdrawal seizures. He does not recall the last time he was alcohol free. CIWA protocol discontinued. (6) Dispostion Assessment/Plan: Mr. Vaz continues to require in-hospital care due to his hyponatremia. Current serum sodium is 129. Anticipate patient will be able to discharge once his sodium is greater than 130. Physical therapy evaluated him yesterday and are currently recommending a detention facility. - Current Meds Current Meds: Current Medications Generic Name Dose Route Start Last Admin Trade Name Freq PRN Reason Stop Dose Admin Albuterol/Ipratropium 3 ml 11/15/23 07:00 11/18/23 10:50 Ipratropium/Albuterol 3 Ml Neb INH 3 ml RTQID ESTEPHANIA Administration Budesonide 0.5 mg 11/15/23 19:00 11/18/23 07:05 Budesonide 0.5 Mg/2 Ml Neb INH 0.5 mg RTBID ESTEPHANIA Administration Formoterol Fumarate 20 mcg 11/15/23 19:00 11/18/23 07:05 Formoterol Fumarate Neb 20 Mcg/2 Ml INH 20 mcg RTBID ESTEPHANIA Administration Gabapentin 300 mg 11/14/23 22:30 11/18/23 04:19 Gabapentin 300 Mg Capsule PO 300 mg Q8HR PRN Administration Moderate Pain (Level 5-7) Heparin Sodium (Porcine) 5,000 unit 11/15/23 09:00 11/18/23 08:35 Heparin 5,000 Unit/Ml Vial SUBQ 5,000 unit BID ESTEPHANIA Administration Magnesium Oxide 400 mg 11/17/23 10:00 11/18/23 08:34 Magnesium Oxide 400 Mg Tablet PO 11/18/23 21:01 400 mg BID ESTEPHANIA Administration Nicotine 1 patch 11/15/23 15:00 11/18/23 08:35 Nicotine 14 Mg Patch TOP 1 patch DAILY ESTEPHANIA Administration Oxycodone HCl 5 mg 11/14/23 21:25 11/18/23 10:58 Oxycodone 5 Mg Tablet PO 5 mg Q4H PRN Administration Chest Pain Pantoprazole Sodium 40 mg 11/16/23 05:00 11/18/23 06:22 Pantoprazole 40 Mg Tablet PO 40 mg QDAC ESTEPHANIA Administration Multivit/Folic Acid/Iron 1 tab 11/15/23 17:00 11/18/23 08:34 Vitamin Tablet PO 1 tab DAILYWM ESTEPHANIA Administration Sodium Chloride 10 ml 11/15/23 01:00 11/18/23 08:35 Sodium Chloride Flush 0.9% 10 Ml Syringe IVP 10 ml 0100,0900,1700 ESTEPHANIA Administration Sodium Chloride 10 ml 11/14/23 22:31 11/17/23 20:27 Sodium Chloride Flush 0.9% 10 Ml Syringe IVP 10 ml PRN PRN Administration NEEDED PER PROVIDER ORDERS Sodium Chloride 1 gm 11/18/23 08:00 11/18/23 11:00 Sodium Chloride 1 Gm Tablet PO 1 gm TIDWM ESTEPHANIA Administration Sodium Phosphate 250 mg 11/17/23 12:00 11/18/23 11:00 Neutra-Phos 250 Mg Tablet PO 11/19/23 08:01 250 mg TIDWM ESTEPHANIA Administration Thiamine HCl 100 mg 11/15/23 17:00 11/18/23 08:34 Thiamine 100 Mg Tablet PO 100 mg DAILY ESTEPHANIA Administration - Lab Result Fish Bone Diagrams: 11/16/23 04:16 11/18/23 04:17 - Additional Planning My Orders: My Active Orders 11/17/23 12:00 Neutra-Phos [K-Phos Neutral] 250 mg PO TIDWM 11/18/23 08:00 Sodium Chloride [Salt Tab] 1 gm PO TIDWM Subjective - Subjective Patient Reports: Other (Alert. Denies shortness of breath. He does complain of chest pain related to his multiple rib fractures. He denies nausea and vomiting he has no other complaints at this time.) Objective Vital Signs: Vital Signs - 24 hr 11/17/23 11/17/23 11/17/23 13:00 14:00 14:54 Temperature Heart Rate 77 Heart Rate [ 84 78 Monitoring electrodes] Respiratory 16 18 16 Rate Blood Pressure 126/87 H 124/69 [Right Brachial artery] O2 Saturation 83 L 76 L 11/17/23 11/17/23 11/17/23 15:00 16:00 17:00 Temperature 36.7 C Heart Rate Heart Rate [ 78 83 98 Monitoring electrodes] Respiratory 18 21 19 Rate Blood Pressure 136/84 H 140/81 H 147/80 H [Right Brachial artery] O2 Saturation 95 94 91 L 11/17/23 11/17/23 11/17/23 18:00 18:02 19:00 Temperature Heart Rate 88 Heart Rate [ 89 81 Monitoring electrodes] Respiratory 20 20 16 Rate Blood Pressure 132/74 H 134/72 H [Right Brachial artery] O2 Saturation 95 94 11/17/23 11/17/23 11/18/23 20:00 21:00 00:00 Temperature 36.4 C L Heart Rate Heart Rate [ 86 76 72 Monitoring electrodes] Respiratory 20 14 14 Rate Blood Pressure 136/83 H 122/70 114/61 [Right Brachial artery] O2 Saturation 93 95 93 11/18/23 11/18/23 11/18/23 04:00 07:05 08:00 Temperature 36.9 C 37.1 C Heart Rate 74 Heart Rate [ 79 90 Monitoring electrodes] Respiratory 15 18 12 Rate Blood Pressure 132/74 H 124/68 [Right Brachial artery] O2 Saturation 92 93 11/18/23 11/18/23 08:43 10:50 Temperature 36.9 C Heart Rate 78 Heart Rate [ 85 Monitoring electrodes] Respiratory 12 18 Rate Blood Pressure 142/94 H [Right Brachial artery] O2 Saturation 91 L Oxygen O2 Source Room air I&O (Last 24 Hrs): Intake and Output Totals x24h 11/16/23 11/17/23 11/18/23 23:59 23:59 23:59 Intake Total 1360 1580 480 Output Total 1564 8240 1275 Balance -204 -6050 -795 General: Alert, No acute distress HEENT: Atraumatic Neck: No JVD Neuro: Non Focal Cardiovascular: Other (Positive S1-S2 no extra heart sounds.) Respiratory: Other (Good air exchange in all lung gran[place] no wheezing no crackles) Abdomen: Other (Soft nontender nondistended positive bowel sounds) Extremities: No cyanosis, No edema Skin: No rashes - Results Results: Laboratory Results WBC 9.3 x10^3/uL (4.8-10.8) 11/16/23 04:16 RBC 3.42 10^6/uL (4.70-6.10) L 11/16/23 04:16 Hgb 10.8 g/dL (14.0-18.0) L 11/16/23 04:16 Hct 32.2 % (42.0-52.0) L 11/16/23 04:16 MCV 94.2 fL (80.0-94.0) H 11/16/23 04:16 MCH 31.6 pg (27.0-31.0) H 11/16/23 04:16 MCHC 33.5 g/dL (32.0-36.0) 11/16/23 04:16 RDW 11.7 % (12.0-15.0) L 11/16/23 04:16 Plt Count 155 10^3/uL (130-450) 11/16/23 04:16 MPV 9.0 fL (7.4-11.4) 11/16/23 04:16 Neut # (Auto) 8.2 10^3/uL (1.5-6.6) H 11/16/23 04:16 Lymph # (Auto) 0.5 10^3/uL (1.5-3.5) L 11/16/23 04:16 [place] # (Auto) 0.6 10^3/uL (0.0-1.0) 11/16/23 04:16 Eos # (Auto) 0.0 10^3/uL (0.0-0.7) 11/16/23 04:16 Baso # (Auto) 0.0 10^3/uL (0.0-0.1) 11/16/23 04:16 Absolute Nucleated RBC 0.00 x10^3/uL 11/16/23 04:16 Nucleated RBC % 0.0 /100WBC 11/16/23 04:16 VBG pH 7.465 (7.31-7.41) H 11/16/23 21:07 Ionized Calcium 1.07 mmol/L (1.15-1.33) L 11/16/23 21:07 Sodium 129 mmol/L (135-145) L 11/18/23 04:17 Potassium 4.0 mmol/L (3.5-4.5) 11/18/23 04:17 Chloride 94 mmol/L (101-111) L 11/18/23 04:17 Carbon Dioxide 30 mmol/L (21-32) 11/18/23 04:17 Anion Gap 5.0 (6-13) L 11/18/23 04:17 BUN 9 mg/dL (6-20) 11/18/23 04:17 Creatinine 0.5 mg/dL (0.6-1.3) L 11/18/23 04:17 Estimated GFR (MDRD) 164 (>89) 11/18/23 04:17 Glucose 112 mg/dL (74-104) H 11/18/23 04:17 Calcium 8.5 mg/dL (8.5-10.3) 11/18/23 04:17 Phosphorus 4.0 mg/dL (2.5-5.0) 11/18/23 04:17 Magnesium 1.7 mg/dL (1.7-2.3) 11/18/23 04:17 Total Bilirubin 1.1 mg/dL (0.2-1.0) H 11/14/23 18:35 AST 58 IU/L (10-42) H 11/14/23 18:35 ALT 56 IU/L (10-60) 11/14/23 18:35 Alkaline Phosphatase 60 IU/L (42-121) 11/14/23 18:35 Total Protein 7.1 g/dL (6.4-8.9) 11/14/23 18:35 Albumin 4.4 g/dL (3.2-5.5) 11/14/23 18:35 Globulin 2.7 g/dL (2.1-4.2) 11/14/23 18:35 Albumin/Globulin Ratio 1.6 (1.0-2.2) 11/14/23 18:35 Lipase < 10 U/L (11-82) L 11/14/23 18:35 Nasal Screen MRSA (PCR) NEGATIVE (NEGATIVE) 11/15/23 00:00 Ethyl Alcohol < 10.0 mg/dL 11/14/23 18:35 - Procedures Procedures: Procedures EXCISION OF TRANSVERSE COLON, ENDO, DIAGN (02/23/17)
[2023-11-19] MEDS: MIN OIL/DIMETHICON/COCONUT OIL 92 GM TUBE TOP PRN (05:30)
[2023-11-19 05:51] LABS: CALCIUM 8.8 mg/dL (8.5-10.3); CREATININE 0.6 mg/dL (0.6-1.3); MAGNESIUM 1.7 mg/dL (1.7-2.3); POTASSIUM 4.7 mmol/L (3.5-4.5)
[2023-11-19] MEDS: FUROSEMIDE 20 MG TABLET PO ONE (08:10)
[2023-11-19] MEDS: SODIUM CHLORIDE 1 GM TABLET PO SCH (08:10)
--- NOTE | 2023-11-19 09:11 | PROVIDER PROGRESS NOTE ---
Assessment/Plan - Problem List (1) Acute hyponatremia Assessment/Plan: Serum sodium has decrease to 128. over the last 24 hours. Etiology of hyponatremia not clear but most likely related to beer consumption. Plan: Salt tablet 3 gram with each meal. Fluid restriction 1500 mL/day. Lasix 20 mg PO x 1 dose. (2) Hypoxemia Assessment/Plan: Likely exacerbated by aspiration pneumonia and pneumothorax. Oxygen discontinued. Antibiotics have been discontinued because leukocytosis has resolved and he remained afebrile. (3) Acute pneumothorax Assessment/Plan: Right-sided chest tube placed 11/13. Chest tube removed 11/16/2023. No complications (4) Rib fractures Qualifiers: Encounter type: initial encounter Fracture type: closed Laterality: right Qualified Code(s): S22.41XA - Multiple fractures of ribs, right side, initial encounter for closed fracture Assessment/Plan: Multiple rib fractures on the right side (7-12).Patient tolerating well. Continue to monitor. (5) Alcohol abuse Assessment/Plan: Endorses drinking 9 beers daily. Has never had withdrawals previous or withdrawal seizures. He does not recall the last time he was alcohol free. CIWA protocol discontinued. (6) Dispostion Assessment/Plan: Mr. Vaz continues to require in-hospital care due to his hyponatremia. Current serum sodium is 128. Anticipate patient will be able to discharge once his so dium is greater than 130. Patient refuses to go to jail and will discharge to home when medically cleared for discharge. - Current Meds Current Meds: Current Medications Generic Name Dose Route Start Last Admin Trade Name Freq PRN Reason Stop Dose Admin Albuterol/Ipratropium 3 ml 11/15/23 07:00 11/19/23 07:14 Ipratropium/Albuterol 3 Ml Neb INH 3 ml RTQID ESTEPHANIA Administration Budesonide 0.5 mg 11/15/23 19:00 11/19/23 07:14 Budesonide 0.5 Mg/2 Ml Neb INH 0.5 mg RTBID ESTEPHANIA Administration Formoterol Fumarate 20 mcg 11/15/23 19:00 11/19/23 07:14 Formoterol Fumarate Neb 20 Mcg/2 Ml INH 20 mcg RTBID ESTEPHANIA Administration Gabapentin 300 mg 11/14/23 22:30 11/18/23 04:19 Gabapentin 300 Mg Capsule PO 300 mg Q8HR PRN Administration Moderate Pain (Level 5-7) Heparin Sodium (Porcine) 5,000 unit 11/15/23 09:00 11/19/23 08:19 Heparin 5,000 Unit/Ml Vial SUBQ 5,000 unit BID ESTEPHANIA Administration Mineral Oil 1 applic 11/18/23 07:55 11/19/23 05:30 Min Oil/Dimethicon/Coconut Oil 92 Gm Tube TOP 1 applic PRN PRN Administration Skin Care Nicotine 1 patch 11/15/23 15:00 11/19/23 08:10 Nicotine 14 Mg Patch TOP 1 patch DAILY ESTEPHANIA Administration Oxycodone HCl 5 mg 11/14/23 21:25 11/19/23 06:16 Oxycodone 5 Mg Tablet PO 5 mg Q4H PRN Administration Chest Pain Pantoprazole Sodium 40 mg 11/16/23 05:00 11/19/23 06:13 Pantoprazole 40 Mg Tablet PO 40 mg QDAC ESTEPHANIA Administration Multivit/Folic Acid/Iron 1 tab 11/15/23 17:00 11/19/23 08:10 Vitamin Tablet PO 1 tab DAILYWM ESTEPHANIA Administration Sodium Chloride 10 ml 11/15/23 01:00 11/19/23 08:11 Sodium Chloride Flush 0.9% 10 Ml Syringe IVP 10 ml 0100,0900,1700 ESTEPHANIA Administration Sodium Chloride 10 ml 11/14/23 22:31 11/17/23 20:27 Sodium Chloride Flush 0.9% 10 Ml Syringe IVP 10 ml PRN PRN Administration NEEDED PER PROVIDER ORDERS Sodium Chloride 3 gm 11/19/23 08:00 11/19/23 08:10 Sodium Chloride 1 Gm Tablet PO 3 gm TIDWM ESTEPHANIA Administration Thiamine HCl 100 mg 11/15/23 17:00 11/19/23 08:11 Thiamine 100 Mg Tablet PO 100 mg DAILY ESTEPHANIA Administration - Lab Result Fish Bone Diagrams: 11/16/23 04:16 11/19/23 05:27 - Additional Planning My Orders: My Active Orders 11/19/23 07:52 Fluid Restriction [RC] IOSHIFT 11/19/23 07:53 Daily Weight [RC] 0600 Miscellaenous Nursing Order [RC] QSHIFT 11/19/23 08:00 Sodium Chloride [Salt Tab] 3 gm PO TIDWM 11/20/23 05:00 CBC W/O DIFF (HEMOGRAM) [HEME] Routine Subjective - Subjective Patient Reports: Other (Alert. Continues to complain of chest pain related to his rib fractures. He denies shortness of breath and abdominal pain. No other complaints at this time.) Objective Vital Signs: Vital Signs - 24 hr 11/18/23 11/18/23 11/18/23 10:50 14:00 15:17 Temperature 36.6 C Heart Rate 78 72 Heart Rate [ Brachial] Heart Rate [ Monitoring electrodes] Respiratory 18 18 20 Rate Blood Pressure 113/62 [Right Brachial artery] O2 Saturation 93 11/18/23 11/18/23 11/18/23 15:39 19:10 23:32 Temperature 36.3 C L 37.0 C Heart Rate 90 Heart Rate [ 83 Brachial] Heart Rate [ 89 Monitoring electrodes] Respiratory 18 20 18 Rate Blood Pressure 130/65 156/86 H [Right Brachial artery] O2 Saturation 92 94 11/19/23 11/19/23 07:16 08:21 Temperature 36.7 C Heart Rate 80 Heart Rate [ 76 Brachial] Heart Rate [ Monitoring electrodes] Respiratory 18 20 Rate Blood Pressure 151/85 H [Right Brachial artery] O2 Saturation 92 Oxygen O2 Source Room air I&O (Last 24 Hrs): Intake and Output Totals x24h 11/17/23 11/18/23 11/19/23 23:59 23:59 23:59 Intake Total 1580 1740 240 Output Total 2940 2075 1 Balance -1360 -335 239 General: Alert, No acute distress Neck: Supple, No JVD Neuro: Alert, Non Focal Cardiovascular: Other (Positive S1-S2 no extra heart sounds.) Respiratory: Other (Good air exchange in all lung garnett no wheezing no crackles) Abdomen: Other (Soft nontender nondistended positive bowel sounds) Extremities: No cyanosis, No edema Skin: No rashes - Results Results: Laboratory Results WBC 9.3 x10^3/uL (4.8-10.8) 11/16/23 04:16 RBC 3.42 10^6/uL (4.70-6.10) L 11/16/23 04:16 Hgb 10.8 g/dL (14.0-18.0) L 11/16/23 04:16 Hct 32.2 % (42.0-52.0) L 11/16/23 04:16 MCV 94.2 fL (80.0-94.0) H 11/16/23 04:16 MCH 31.6 pg (27.0-31.0) H 11/16/23 04:16 MCHC 33.5 g/dL (32.0-36.0) 11/16/23 04:16 RDW 11.7 % (12.0-15.0) L 11/16/23 04:16 Plt Count 155 10^3/uL (130-450) 11/16/23 04:16 MPV 9.0 fL (7.4-11.4) 11/16/23 04:16 Neut # (Auto) 8.2 10^3/uL (1.5-6.6) H 11/16/23 04:16 Lymph # (Auto) 0.5 10^3/uL (1.5-3.5) L 11/16/23 04:16 Parker # (Auto) 0.6 10^3/uL (0.0-1.0) 11/16/23 04:16 Eos # (Auto) 0.0 10^3/uL (0.0-0.7) 11/16/23 04:16 Baso # (Auto) 0.0 10^3/uL (0.0-0.1) 11/16/23 04:16 Absolute Nucleated RBC 0.00 x10^3/uL 11/16/23 04:16 Nucleated RBC % 0.0 /100WBC 11/16/23 04:16 VBG pH 7.465 (7.31-7.41) H 11/16/23 21:07 Ionized Calcium 1.07 mmol/L (1.15-1.33) L 11/16/23 21:07 Sodium 128 mmol/L (135-145) L 11/19/23 05:27 Potassium 4.7 mmol/L (3.5-4.5) H 11/19/23 05:27 Chloride 93 mmol/L (101-111) L 11/19/23 05:27 Carbon Dioxide 32 mmol/L (21-32) 11/19/23 05:27 Anion Gap 3.0 (6-13) L 11/19/23 05:27 BUN 10 mg/dL (6-20) 11/19/23 05:27 Creatinine 0.6 mg/dL (0.6-1.3) 11/19/23 05:27 Estimated GFR (MDRD) 133 (>89) 11/19/23 05:27 Glucose 106 mg/dL (74-104) H 11/19/23 05:27 Calcium 8.8 mg/dL (8.5-10.3) 11/19/23 05:27 Phosphorus 4.0 mg/dL (2.5-5.0) 11/19/23 05:27 Magnesium 1.7 mg/dL (1.7-2.3) 11/19/23 05:27 Total Bilirubin 1.1 mg/dL (0.2-1.0) H 11/14/23 18:35 AST 58 IU/L (10-42) H 11/14/23 18:35 ALT 56 IU/L (10-60) 11/14/23 18:35 Alkaline Phosphatase 60 IU/L (42-121) 11/14/23 18:35 Total Protein 7.1 g/dL (6.4-8.9) 11/14/23 18:35 Albumin 4.4 g/dL (3.2-5.5) 11/14/23 18:35 Globulin 2.7 g/dL (2.1-4.2) 11/14/23 18:35 Albumin/Globulin Ratio 1.6 (1.0-2.2) 11/14/23 18:35 Lipase < 10 U/L (11-82) L 11/14/23 18:35 Nasal Screen MRSA (PCR) NEGATIVE (NEGATIVE) 11/15/23 00:00 Ethyl Alcohol < 10.0 mg/dL 11/14/23 18:35 - Procedures Procedures: Procedures EXCISION OF TRANSVERSE COLON, ENDO, DIAGN (02/23/17)
[2023-11-20 06:11] LABS: HGB - HEMOGLOBIN 11.6 g/dL (14.0-18.0); MEAN CORPUSCULAR HEMOGLOBIN 32.6 pg (27.0-31.0); MEAN CORPUSCULAR HGB CONC 33.1 g/dL (32.0-36.0); MEAN CORPUSCULAR VOLUME 98.3 fL (80.0-94.0); MEAN PLATELET VOLUME 8.6 fL (7.4-11.4); RED BLOOD COUNT 3.56 10^6/uL (4.70-6.10); RED CELL DISTRIBUTION WIDTH 12.4 % (12.0-15.0); WHITE BLOOD COUNT 9.8 x10^3/uL (4.8-10.8)
[2023-11-20 06:20] LABS: CREATININE 0.6 mg/dL (0.6-1.3); MAGNESIUM 1.6 mg/dL (1.7-2.3); PHOSPHORUS 4.1 mg/dL (2.5-5.0); POTASSIUM 4.4 mmol/L (3.5-4.5)
[2023-11-20 08:05] VITALS: BP 168/90; O2SAT 92
--- NOTE | 2023-11-20 08:43 | Discharge Plan ---
Discharge Plan Problem Reviewed?: Yes Disposition: Home, Self Care Condition: Stable Prescriptions: Magnesium Oxide [Mag Ox] 400 mg PO DAILYWM #7 tab Pnv No.95/Ferrous Fum/Folic AC [ Formula] 1 each PO DAILY #30 tablet Sodium Chloride [Salt Tab] 1 gm PO DAILY #14 tab Diet: Regular Activity Restrictions: Activity as Tolerated Shower Restrictions: No Driving Restrictions: No Assistance Devices: Walker Weight Bearing: Full Weight Instruction Topics: Hyponatremia Dc Health Concerns: History of Present Illness: Yosef Vaz is a 73-year-old man with a past medical history significant for COPD, alcohol dependence and hypertension. He presented to the emergency room on November 14, 2023 with a chief complaint of right-sided chest pain after falling at home. Workup in the emergency room revealed he had a right pneumothorax and multiple right-sided rib fractures. A chest tube was placed in the emergency room. Laboratory studies performed to the emergency room on admission revealed a serum sodium of 112. Patient reportedly drinks at least 9 beers a day.Patient was admitted to the intensive care unit for close hemodynamic monitoring and monitoring of his serum sodium.Throughout his hospital stay he did not have any evidence of alcohol withdrawal. Patient's chest tube remained in until November 16, 2023. The chest tube was clamped for 4 hours and repeat chest x-ray did not reveal pneumothorax. Chest tube was removed that afternoon. Serum sodium increased appropriately on a daily basis and when the serum sodium reached a level of 128, the patient was transferred from the intensive care unit to the medical floor. Serum sodium today is 132 and patient is stable for discharge to home. During his hospital stay he was evaluated by physical therapy. He is ambulating with a front wheel walker. Physical therapy reported the patient had some difficulty with his gait and advancing his right lower extremity with toe out posture. Physical therapy recommended patient transfer to a residential facility to improve strength and balance. Multiple people discussed a residential facility with Mr. Ko and he has refused placement. He also refused to work with physical therapy 2 days in a row. He is now stable for discharge to home. Prior to discharge, patient was counseled to abstain or at least limit his consumption of beer and not to drink more than 2 cans a day. It was recommended that he discontinue alcohol. Yosef Vaz is a 73-year-old man with a past medical history significant for COPD, alcohol dependence and hypertension. He presented to the emergency room on November 14, 2023 with a chief complaint of right-sided chest pain after falling at home. Workup in the emergency room revealed he had a right pneumothorax and multiple right-sided rib fractures. A chest tube was placed in the emergency room. Laboratory studies performed to the emergency room on admission revealed a serum sodium of 112. Patient reportedly drinks at least 9 beers a day.Patient was admitted to the intensive care unit for close hemodynamic monitoring and monitoring of his serum sodium.Throughout his hospital stay he did not have any evidence of alcohol withdrawal. Patient's chest tube remained in until November 16, 2023. The chest tube was clamped for 4 hours and repeat chest x-ray did not reveal pneumothorax. Chest tube was removed that afternoon. Serum sodium increased appropriately on a daily basis and when the serum sodium reached a level of 128, the patient was transferred from the intensive care unit to the medical floor. Serum sodium today is 132 and patient is stable for discharge to home. During his hospital stay he was evaluated by physical therapy. He is ambulating with a front wheel walker. Physical therapy reported the patient had some difficulty with his gait and advancing his right lower extremity with toe out posture. Physical therapy recommended patient transfer to a residential facility to improve strength and balance. Multiple people discussed a residential facility with Mr. Ko and he has refused placement. He also refused to work with physical therapy 2 days in a row. Patient counseled to use a walker during ambulation. He is now stable for discharge to home. Prior to discharge, patient was counseled to abstain or at least limit his consumption of beer and not to drink more than 2 cans a day. It was recommended that he discontinue alcohol. Yosef Vaz is a 73-year-old man with a past medical history significant for COPD, alcohol dependence and hypertension. He presented to the emergency room on November 14, 2023 with a chief complaint of right-sided chest pain after falling at home. Workup in the emergency room revealed he had a right pneumothorax and multiple right-sided rib fractures. A chest tube was placed in the emergency room. Laboratory studies performed to the emergency room on admission revealed a serum sodium of 112. Patient reportedly drinks at least 9 beers a day.Patient was admitted to the intensive care unit for close hemodynamic monitoring and monitoring of his serum sodium.Throughout his hospital stay he did not have any evidence of alcohol withdrawal. Patient's chest tube remained in until November 16, 2023. The chest tube was clamped for 4 hours and repeat chest x-ray did not reveal pneumothorax. Chest tube was removed that afternoon. Serum sodium increased appropriately on a daily basis and when the serum sodium reached a level of 128, the patient was transferred from the intensive care unit to the medical floor. Serum sodium today is 132 and patient is stable for discharge to home. During his hospital stay he was evaluated by physical therapy. He is ambulating with a front wheel walker. Physical therapy reported the patient had some difficulty with his gait and advancing his right lower extremity with toe out posture. Physical therapy recommended patient transfer to a residential facility to improve strength and balance. Multiple people discussed a residential facility with Mr. Ko and he has refused placement. He also refused to work with physical therapy 2 days in a row. He is now stable for discharge to home. Prior to discharge, patient was counseled to abstain or at least limit his consumption of beer and not to drink more than 2 cans a day. It was recommended that he discontinue alcohol. He was also counseled to stop smoking.A nicotine patch was not prescribed because patient felt he would go home and smoke. Plan of Treatment: 1. Continue medications as prescribed. 2. Recommend obtaining a primary care provider. 3. Please return to the emergency room or an acute care facility for fever greater than 101.5 or shortness of breath that does not improve with rest. 4. Recommend abstaining from alcohol. If you do use alcohol please limit your consumption to 1 -2 alcoholic beverages each day. 5. Please quit smoking. 6. Please continue to work with physical therapy to improve strength and balance. Home health has been ordered. 7. Please use a walker at all times when ambulating. Care Goals: Goal of care is to return to baseline function. Assessment: (1) Hyponatremia Assessment/Plan: Recommend follow-up with primary care provider and monitoring serum sodium. Please take 1 salt tablet each day for the next week. (3) Hypoxemia Assessment/Plan: Resolved (4) Acute pneumothorax Assessment/Plan: Right-sided chest tube placed 11/13 and removed on November 16, 2023. (5) Rib fractures Qualifiers: Encounter type: initial encounter Fracture type: closed Laterality: right Qualified Code(s): S22.41XA - Multiple fractures of ribs, right side, initial encounter for closed fracture Assessment/Plan: Multiple rib fractures on the right side (7-12).Patient tolerating well. Continue to monitor. (6) Alcohol abuse Assessment/Plan: Endorses drinking 9 beers daily. Consumption of beer most likely the etiology of his hyponatremia. Has never had withdrawals previous or withdrawal seizures. Follow-Up Care: Home Health - PT, Home Health - OT No Smoking: If you smoke, Please STOP! Call for help.
--- NOTE | 2023-11-20 08:43 | DISCHARGE SUMMARY ---
"Discharge Summary Admit Date: 11/14/23 Discharge Date: 11/20/23 Discharging Provider: Shahid Avelar MD Primary Care Provider: [facility] at [facility] Condition at Discharge: Stable Discharge Disposition: 01 Home, Self Care - DIAGNOSES Admission Diagnoses: 1. Right pneumothorax 2. Acute hypoxemia 3. Acute metabolic encephalopathy 4. Hyponatremia 5. COPD 6. Alcohol Dependence Discharge Diagnoses with Status of Each Condition: (1) Acute hyponatremia- resolved (2) Hypoxemia- resolved (3) Acute pneumothorax -resolved (4) Rib fractures (5) Alcohol abuse (6) COPD - HPI History of Present Illness: Yosef Vaz is a 73-year-old man with a past medical history significant for COPD, alcohol dependence and hypertension. He presented to the emergency room on November 14, 2023 with a chief complaint of right-sided chest pain after falling at home. Workup in the emergency room revealed he had a right pneumothorax and multiple right-sided rib fractures. A chest tube was placed in the emergency room. Laboratory studies performed to the emergency room on admission revealed a serum sodium of 112. Patient reportedly drinks at least 9 beers a day.Patient was admitted to the intensive care unit for close hemodynamic monitoring and monitoring of his serum sodium.Throughout his hospital stay he did not have any evidence of alcohol withdrawal. Patient's chest tube remained in until November 16, 2023. The chest tube was clamped for 4 hours and repeat chest x-ray did not reveal pneumothorax. Chest tube was removed that afternoon. Serum sodium increased appropriately on a daily basis and when the serum sodium reached a level of 128, the patient was transferred from the intensive care unit to the medical floor. Serum sodium today is 132 and patient is stable for discharge to home. During his hospital stay he was evaluated by physical therapy. He is ambulating with a front wheel walker. Physical therapy reported the patient had some difficulty with his gait and advancing his right lower extremity with toe out posture. Physical therapy recommended patient transfer to a [facility] facility to improve strength and balance. Multiple people discussed a penitentiary facility with Mr. Ko and he has refused placement. He also refused to work with physical therapy 2 days in a row. Patient counseled to use a walker during ambulation. He is now stable for discharge to home. Prior to discharge, patient was counseled to abstain or at least limit his consumption of beer and not to drink more than 2 cans a day. It was recommended that he discontinue alcohol. He was also counseled to stop smoking.A nicotine patch was not prescribed because patient felt he would go home and smoke. - CONSULTS | PROCEDURES Consultations: 11/14/23 General Surgery Consult (Dr. Patric Link) Procedures: 11/14/23 Right chest tube placement. - HOSPITAL COURSE Hospital Course: See History of Present Illness - ALLERGIES Allergies/Adverse Reactions: Allergies Allergy/AdvReac Type Severity Reaction Status Date / Time No Known Drug Allergies Allergy Verified 11/14/23 18:50 - MEDICATIONS Home Medications: Ambulatory Orders Medication Instructions Recorded Confirmed Albuterol Sulfate [Proair Hfa 1 - 2 puffs INH Q4H PRN 05/26/21 11/15/23 Inhaler] Fluticasone Propion/Salmeterol 1 puffs INH BID 05/26/21 11/15/23 [Advair 250-50 Diskus] amLODIPine [Norvasc] 5 mg PO DAILY #30 tablet 05/27/21 11/15/23 Magnesium Oxide [Mag Ox] 400 mg PO DAILYWM #7 tab 11/20/23 Pnv No.95/Ferrous Fum/Folic AC 1 each PO DAILY #30 tablet 11/20/23 [ Formula] Sodium Chloride [Salt Tab] 1 gm PO DAILY #14 tab 11/20/23 - PHYSICAL EXAM AT DISCHARGE General Appearance: positive: No acute distress, Alert Eyes Bilateral: positive: Conjunctivae nml, No scleral icterus Neck: positive: No JVD, Trachea midline Respiratory: positive: Other (Good air exchange in lung garnett no wheezing or crackles) Cardiovascular: positive: Other (Positive S1-S2 no extra heart sounds.) Abdomen: positive: Other (Soft nontender nondistended positive bowel sounds) Skin: positive: No rash Extremities: positive: No pedal edema Neurologic/Psychiatric: positive: Motor nml - LABS Result Diagrams: 11/20/23 05:35 11/20/23 05:35 - FOLLOW UP Follow Up: [facility] follow[facility] [place]. - TIME SPENT Time Spent in Discharge (Minutes): 31 (31 minutes spent coordinating discharge and counseling patient prior to discharge. )"
[2023-11-20] MEDS: MAGNESIUM OXIDE 400 MG TABLET PO SCH (11:49)
== END 2023-11-20 12:25 | disposition home or self-care (01) | DRG 641 ==
LOC: EDUNIT# → ED 18:23 → ICU 22:31 → MS2 11-18 10:09
PROVIDERS: ADMIT Student in an Organized Health Care Education/Training Program; ATTEND Internal Medicine
DX: E87.1 Hypo-osmolality and hyponatremia (principal); S22.41XA Multiple fractures of ribs, right side, initial encounter for closed fracture; S09.90XA Unspecified injury of head, initial encounter; S27.0XXA Traumatic pneumothorax, initial encounter; W01.0XXA Fall on same level from slipping, tripping and stumbling without subsequent striking against object, initial encounter; J43.9 Emphysema, unspecified; F17.200 Nicotine dependence, unspecified, uncomplicated; R09.02 Hypoxemia; D72.829 Elevated white blood cell count, unspecified; D64.9 Anemia, unspecified; J44.9 Chronic obstructive pulmonary disease, unspecified; I71.40 Abdominal aortic aneurysm, without rupture, unspecified; Y90.0 Blood alcohol level of less than 20 mg/100 ml; F10.20 Alcohol dependence, uncomplicated; G93.41 Metabolic encephalopathy; I10 Essential (primary) hypertension; F17.210 Nicotine dependence, cigarettes, uncomplicated; Z79.899 Other long term (current) drug therapy; Z81.1 Family history of alcohol abuse and dependence; Z82.5 Family history of asthma and other chronic lower respiratory diseases; Z91.85 Personal history of military service
CPT/HCPCS: 32551; 36415; 70450; 71045; 71260; 72125; 74177; 80048; 80053; 82330; 83690; 83735; 84100; 84132; 84295; 85025; 85027; 87150; 94640; 96365; 96375; 96376; 97162; 97166; 97530; 99152; 99291; A6250; A9270; G0480; J1170; J2597; J3411; J7040; J7626; Q9967; 82077

== ENCOUNTER 2023-12-22 15:37 | Outpatient (CLI) | payer MEDICARE, OTHER | END 2023-12-22 23:59 | disposition EMS.NT | LOC: EMS 15:37 | DX: I10 Essential (primary) hypertension (principal) ==